=== PATIENT | male | born 1965 | race Caucasian/White ===

== ENCOUNTER 2016-06-25 22:39 | Inpatient (IN) | payer MEDICARE, OTHER ==
[~2016-06-25] VITALS: Ht 182.9 cm; Wt 98.2 kg
[~2016-06-25 22:39] MED LIST: ALPR.25 PO; AMLO5TAB2 PO; ATOR20TA15 PO; BUME1TAB PO; CALC667C; METO100T PO; OXYC1TAB36 PO; PANT20 PO; PROM25TA5 PO; SILD20TA11 PO; ZOFR4TAB3 SL
[2016-06-26] VITALS (9 sets, daily range): BP systolic 84–119; BP diastolic 52–70; PULSE 69–74; RESP 18–20; TEMP 97.4–99.2; O2SAT 96–100
[2016-06-26] MEDS ORDERED: PROMETHAZINE HCL 25 MG TAB PO PRN (02:45)
[2016-06-26] MEDS ORDERED: NALOXONE HCL 0.4 MG/ML AMP IV PRN (02:45)
[2016-06-26] MEDS ORDERED: HEPARIN SODIUM - SQ 10,000 UNITS/ML VIAL SQ SCH (02:45)
[2016-06-26] MEDS ORDERED: Vancomycin Consult Pharmacy 1 EA OTHER SCH (03:00)
[2016-06-26] MEDS: ACETAMINOPHEN 325 MG TAB PO PRN (05:06)
[2016-06-26] MEDS ORDERED: VANCOMYCIN 1,500 MG/NS 500 ML IV ONE ×2 (06:00)
[2016-06-26 06:12] LABS: MRSA PCR NEGATIVE (NEGATIVE); STAPH AUREUS PCR NEGATIVE (NEGATIVE)
--- NOTE | 2016-06-26 09:56 | RADRPT ---
EXAM DATE/TIME: 06/26/2016 08:02 [place] COMPARISON: No previous studies available for comparison. INDICATIONS : Syncope. MEDICAL HISTORY : Myocardial infarction. Hypercholesterolemia. Chronic obstructive pulmonary disease. CVA. CHF. Cardiom yopathy. A-fib. Hypertension. Pneumonia. Pancreatitis. Inguinal hernia. Renal failure. Hepatitis B. A rthritis. SURGICAL HISTORY : Tonsillectomy. AV shunt. Cardiac cath. Dialysis. Blood transfusion. ENCOUNTER: Initial ACUITY: 1 day PAIN SCORE: 1/10 LOCATION: Bilateral neck PEAK SYSTOLIC VELOCITIES (cm/sec): ICA/CCA RATIO: Right: 0.9 Left: 0.9 ICA: Right: 97 Left: 82 CCA: Right: 110 Left: 96 ECA: Right: 128 Left: 73 VERTEBRAL: Right: 45 antegrade Left: 43 antegrade Elevated flow velocities and ICA/CCA ratios have been found to correlate with increased degrees of vessel stenosis, calculated as percentage of diameter relative to a normal segment of distal ICA/CCA FINDINGS: RIGHT CAROTID: No significant stenosis is visualized. The waveforms are within normal limits. LEFT CAROTID: No significant stenosis is visualized. The waveforms are within normal limits. VERTEBRAL ARTERIES: Antegrade flow is seen in both vertebral arteries. MISCELLANEOUS: None. CONCLUSION: Mild calcified plaque right carotid bulb. No evidence of hemodynamically significant carotid stenosis . Huseyin Wood MD on June 26, 2016 at 9:54 Board Certified Radiologist. This report was verified electronically.
[2016-06-26] MEDS: SODIUM CHLORIDE 0.9% FLUSH 10 ML FLUSH IV FLUSH SCH ×2 (10:03→22:17)
[2016-06-26] MEDS: PANTOPRAZOLE SOD 20 MG DELAYED RELEASE TAB PO SCH ×2 (10:03→22:17)
--- NOTE | 2016-06-26 18:36 | EKG ---
Date Performed: 06/26/2016 Time Performed: 08:47:03 PTAGE: 51 years EKG: Sinus rhythm WITH FIRST DEGREE AV BLOCK INCOMPLETE RIGHT BUNDLE BRANCH BLOCK LEFT ANTERIOR FASCICULAR BLOCK ABNOR MAL ECG NO PREVIOUS TRACING DOCTOR: Ashley Sawyer Interpretating Date/Time 06/26/2016 18:35:03
[2016-06-26] MEDS: METOPROLOL TARTRATE 25 MG TAB PO SCH (21:00)
[2016-06-26] MEDS ORDERED: SILDENAFIL CITRATE 20 MG TAB PO SCH (21:00)
[2016-06-26] MEDS: ATORVASTATIN 20 MG TAB PO SCH (22:17)
[2016-06-26 22:52] LABS: BLOOD, URINE SMALL (NEG); COMMENT (UR) CULTURE INDICATED; CULTURE IF INDICATED CULTURE INDICATED; GLUCOSE,URINE NEG (NEG); HYALINE CAST, URINE 1 /lpf (RARE); KETONE, URINE NEG (NEG); MUCUS URINE FEW /lpf (OCC); NITRITE,URINE NEG (NEG); PH, URINE 5.5 (5.0-8.5); SQUAMOUS EPITHELIAL CELL URINE 2 /hpf (0-5); URINE COLOR YELLOW (YELLW/STRAW)
--- NOTE | 2016-06-26 23:20 | HHI.HP ---
HPI Service [facility] Primary Care Physician Jimbo Marie MD Admission Diagnosis Diagnoses: Travel History International Travel<30 Days: No Contact w/Intl Traveler <30 Da: No History of Present Illness 51-year-old male with history of end-stage renal disease on hemodialysis Monday , , Monday, fistula revision in January, as well as recent fistulogram on Monday, diabetes diet controlled, hypertension, CHF, pulmonary hypertension, who presents with lightheadedness, hypotension following dialysis on 06/24. He reports that his left arm was burning during dialysis, that he experienced lightheadedness. Upon arriving home, found blood pressure to be in the 70s systolic, with normal heart rate. He says he feels as if he was going to pass out. Denies any unilateral weakness. He does report having some chest pressure at the time, however denies any currently. He reports a several month history of intermittent sharp abdominal pain, does report issues with constipation over the past couple months. Review of Systems performed and negative except for HPI and past medical history. Past Family Social History Past Medical History Atrial fibrillation with history of ablation End-stage renal disease on hemodialysis Monday to Monday CHF Pulmonary hypertension Anxiety Hyperlipidemia Systemic hypertension Common immune deficiency syndrome GERD Chronic lower back pain Past Surgical History Left fistula revision January 2016. Cardiac catheterization History of pericardial window Reported Medications Reported Meds & Active Scripts Active Reported Zofran Odt (Ondansetron Odt) 4 Mg Tab 4 Mg SL Q6HR PRN Phenergan (Promethazine HCl) 25 Mg Tab 25 Mg PO Q6H PRN Oxycodone-Acetaminophen 10-325 mg Tab 1 Tab PO Q4H PRN Xanax (Alprazolam) 0.25 Mg Tab 0.25 Mg PO DIRECTED PRN Calcium Acetate (Calcium Acetate (Phosphate Bin) 667 Mg Cap Bumetanide 1 Mg Tab 1 Mg PO DAILY Protonix (Pantoprazole Sodium) 20 Mg Tab 20 Mg PO BID Atorvastatin (Atorvastatin Calcium) 20 Mg Tab 20 Mg PO HS Amlodipine (Amlodipine Besylate) 5 Mg Tab 5 Mg PO DAILY Metoprolol Tartrate 100 Mg Tab 100 Mg PO BID Sildenafil 20 Mg Tab 40 Mg PO BID Allergies: Coded Allergies: Albuterol (Verified Allergy, Severe, 06/25/16) violent shaking Meclizine (Verified Allergy, Severe, 06/25/16) swelling Penicillin (Verified Allergy, Severe, Rash, 06/25/16) Uncoded Allergies: plastic tape (Allergy, Severe, 06/25/16) breaks out Family History Patient was adopted Social History Nonsmoker. Nondrinker. Denies illicit drug use. Physical Exam Vital Signs Vital Signs Date Time Temp Pulse Resp B/P Pulse Ox O2 Delivery O2 Flow Rate FiO2 06/26/16 20:38 99.2 74 18 114/69 96 105/63 119/67 06/26/16 19:20 Room Air 06/26/16 16:00 98.3 70 18 109/70 98 06/26/16 14:50 97/57 06/26/16 13:00 90/60 06/26/16 12:00 97.4 71 18 88/56 99 06/26/16 10:31 98/53 06/26/16 08:51 99 21 06/26/16 08:00 84/52 06/26/16 08:00 97.4 69 18 87/54 97 06/26/16 08:00 86/54 06/26/16 02:10 97.6 72 20 101/60 100 06/25/16 23:41 Room Air Physical Exam GENERAL: This is a well-nourished, well-developed patient,who appears tired. He is oriented 3. SKIN: No rashes, ecchymoses or lesions. Cool and dry. HEAD: Atraumatic. Normocephalic. No temporal or scalp tenderness. EYES: Pupils equal round and reactive. Extraocular motions intact. No scleral icterus. No injection or drainage. ENT: Nose without bleeding, purulent drainage or septal hematoma. Throat without erythema, tonsillar hypertrophy or exudate. Uvula midline. Airway patent. NECK: Trachea midline. No JVD or lymphadenopathy. Supple, nontender, no meningeal signs. CARDIOVASCULAR: Regular rate and rhythm without murmurs, gallops, or rubs. RESPIRATORY: Clear to auscultation. Breath sounds equal bilaterally. No wheezes , rales, or rhonchi. GASTROINTESTINAL: Abdomen soft, non-tender, nondistended. No hepato-splenomegaly , or palpable masses. No guarding. MUSCULOSKELETAL: Extremities without clubbing, cyanosis, or edema. No joint tenderness, effusion, or edema noted. No calf tenderness. Negative Homans sign bilaterally. left upper extremity fistula with positive thrill. Surrounding ecchymosis, however mild. No surrounding erythema NEUROLOGICAL: Awake and alert. Cranial nerves II through XII intact. Motor and sensory grossly within normal limits. Five out of 5 muscle strength in all muscle groups. Normal speech. Laboratory Laboratory Tests Test 06/26/16 06/26/16 06/26/16 06/26/16 04:00 04:40 11:40 22:40 Nasal Screen MRSA (PCR) NEGATIVE Staphylococcus aureus NEGATIVE (PCR)(LAB) Troponin I 0.04 0.04 Creatinine 8.69 Estimat Glomerular Filtration 6 Rate Urine Color YELLOW Urine Turbidity HAZY Urine pH 5.5 Urine Specific [place] 1.023 Urine Protein 100 Urine Glucose (UA) NEG Urine Ketones NEG Urine Occult Blood SMALL Urine Nitrite NEG Urine Bilirubin NEG Urine Urobilinogen LESS THAN 2.0 Urine Leukocyte Esterase LARGE Urine RBC 5 Urine WBC 14 Urine Squamous Epithelial 2 Cells Urine Hyaline Casts 1 Urine Mucus FEW Urine Yeast (Budding) FEW Microscopic Urinalysis Comment CULTURE INDICATED Date/Time Procedure Status Source Growth 06/26/16 22:40 Urine Culture Received Urine Catheterized Urine Pending Result Diagram: 06/26/16 1140 Imaging Last Impressions Carotid Artery Ultrasound 06/26/16 0000 Signed Impressions: Service Date/Time: Sunday, June 26, 2016 08:02 - CONCLUSION: Mild calcified plaque right carotid bulb. No evidence of hemodynamically significant carotid stenosis. Huseyin Wood MD Assessment and Plan Assessment and Plan //Presyncope on admission. Following dialysis session. Likely secondary to low blood pressure at the time. Improved currently. Ultrasound carotids negative for significant stenosis. -Echocardiogram pending //Possible sepsis on admission.Banded neutrophils on admission. Hypotension on admission, and patient was on beta melvin. -Blood cultures(see other profile), and urine cultures pending. -Continue antibiotics. Follow up blood cultures. //End-stage renal disease on dialysis Monday to Patient refuses renal diet. Nephrology to follow for hemodialysis. Has right tunneled HD catheter, as well as questionable left upper extremity fistula. //constipation -Laxatives as necessary. Monitor. //left arm fistula -Patient believes this is not working appropriately. Will request records from recent fistulogram. //afib //History of CHF //History of suspected pulmonary arterial hypertension. -Continue beta melvin lower dose due to hypertension. Hold blood pressure medications. Continue sildenafil. Patient is not on anticoagulation. //depression no si. //History of anxiety Hold anxiolytics in setting of hypertension on admission. Patient declines medical treatment, but does believe that he is clinically depressed. Would like to follow up with psychiatrist or counselor as outpatient //GERD. Chronic. Continue PPI //DM - past diagnosis of diabetes, however says that this is resolved. Patient refuses DM diet, ssi Physician Certification 2 Midnight Certification Type: Admission for Inpatient Services Order for Inpatient Services The services are ordered in accordance with Medicare regulations or non- Medicare payer requirements, as applicable. In the case of services not specified as inpatient-only, they are appropriately provided as inpatient services in accordance with the 2-midnight benchmark. Estimated LOS (days): 2 days is the estimated time the patient will need to remain in the hospital, assuming treatment plan goals are met and no additional complications. Post-Hospital Plan: Not yet determined Yazan Bolaños MD Jun 26, 2016 23:20
[2016-06-27] VITALS (7 sets, daily range): BP systolic 100–121; BP diastolic 55–73; PULSE 70–76; RESP 16–18; TEMP 97–98.7; O2SAT 95–100
[2016-06-27] MEDS: ACETAMINOPHEN 325 MG TAB PO PRN (05:24)
[2016-06-27 06:44] LABS: BASOPHIL % 0.5 % (0.0-2.0); EOSINOPHIL # 0.2 TH/MM3 (0-0.4); EOSINOPHIL % 4.1 % (0.0-4.0); HEMATOCRIT 29.8 % (39.0-51.0); LYMPH % 13.6 % (9.0-44.0); LYMPHOCYTE # 0.8 TH/MM3 (1.0-4.8); MEAN CELL VOLUME 85.7 FL (80.0-100.0); MEAN CORPUSCULAR HEMOGLOBIN 28.8 PG (27.0-34.0); MEAN CORPUSCULAR HGB CONC 33.6 % (32.0-36.0); MONO % 9.5 % (0.0-8.0); NEUT % 72.3 % (16.0-70.0); PLATELET COUNT 73 TH/MM3 (150-450); RED BLOOD COUNT 3.48 MIL/MM3 (4.50-5.90); RED CELL DISTRIBUTION WIDTH 16.4 % (11.6-17.2); WHITE BLOOD COUNT 5.6 TH/MM3 (4.0-11.0)
[2016-06-27 06:54] LABS: HEMO FLAGS AUTO DIFF
[2016-06-27 07:01] LABS: POTASSIUM 4.8 MEQ/L (3.5-5.1)
[2016-06-27] MEDS ORDERED: POLYETHYLENE GLYCOL 17 GM PKG PO ONE (08:00)
[2016-06-27] MEDS ORDERED: DOCUSATE SODIUM 50 MG/SENNA 8.6 MG TAB PO ONE (08:00)
[2016-06-27 08:06] LABS: OVALOCYTES 1+ (NORMAL); SCAN/DIFF AUTO DIFF CONFIRMED; TEARDROP RBCS 1+ (NORMAL)
[2016-06-27] MEDS: SODIUM CHLORIDE 0.9% FLUSH 10 ML FLUSH IV FLUSH SCH ×2 (08:45→21:00)
[2016-06-27] MEDS: METOPROLOL TARTRATE 25 MG TAB PO SCH ×2 (08:45→21:00)
[2016-06-27] MEDS: PANTOPRAZOLE SOD 20 MG DELAYED RELEASE TAB PO SCH ×2 (08:45→21:35)
[2016-06-27] MEDS ORDERED: SILDENAFIL CITRATE 20 MG PO SCH (09:00)
[2016-06-27] MEDS ORDERED: SODIUM CHLOR 0.9% 1000 ML INJ 1,000 ML IV PRN ×3 (09:10)
[2016-06-27] MEDS ORDERED: SODIUM CHLORIDE 0.9% FLUSH 10 ML FLUSH IV FLUSH PRN (09:15)
[2016-06-27] MEDS ORDERED: cloNIDine HCL 0.1 MG TAB PO PRN (09:15)
[2016-06-27] MEDS ORDERED: ACETAMINOPHEN 325 MG TAB PO PRN ×2 (09:15→16:00)
[2016-06-27] MEDS ORDERED: HEPARIN SODIUM - IV 10,000 UNITS/10 ML VIAL IVF PRN (09:15)
[2016-06-27] MEDS ORDERED: GELATIN 12 MM/7 MM FOAM TOP PRN (09:15)
[2016-06-27] MEDS ORDERED: NITROGLYCERIN 0.4 MG SL 25 TABS/BTL SL PRN (09:15)
[2016-06-27] MEDS ORDERED: ALBUMIN HUMAN 25% 25 GM/100 ML BAGP IV PRN (09:15)
[2016-06-27] MEDS ORDERED: MANNITOL 12.5 GM/50 ML VIAL IV PRN (09:15)
--- NOTE | 2016-06-27 12:03 | PD.CONS ---
HPI Service Nephrology Consult Requested By Reason for Consult ESRD on HD Primary Care Physician Jimbo Marie MD History of Present Illness This is a 51 y/o male who lives in [place]. He dialyzes TTS. Was admitted for multiple complaints including dizziness and hypotension during dialysis treatments, has had these complaints for several weeks. He has not seen his cash applications representative to discuss his concerns. Other PMH of A fib, HTN, CAD, and CHF. He had a fistulogram on last week, had AVF cannulated Monday but now reports pain and is refusing to let it be used for dialysis during this admission. There is a good thrill and bruit in his fistula. He also has positive blood cultures on admission with gram pos cocci in chains, has Permcath for HD. We were consulted for renal management, and is a full code. ( Riya Arias) Review of Systems Constitutional: COMPLAINS OF: Fatigue, DENIES: Fever Musculoskeletal: COMPLAINS OF: Muscle aches (Riya Arias) Past Family Social History Allergies: Coded Allergies: Albuterol (Verified Allergy, Severe, 06/25/16) violent shaking Meclizine (Verified Allergy, Severe, 06/25/16) swelling Penicillin (Verified Allergy, Severe, Rash, 06/25/16) Uncoded Allergies: plastic tape (Allergy, Severe, 06/25/16) breaks out Past Medical History Atrial fibrillation with history of ablation End-stage renal disease on hemodialysis Monday to Monday CHF Pulmonary hypertension Anxiety Hyperlipidemia Systemic hypertension Common immune deficiency syndrome GERD Chronic lower back pain Past Surgical History Left fistula revision January 2016. fistulogram recently left AVF permcath Cardiac catheterization History of pericardial window Reported Medications Zofran Odt (Ondansetron Odt) 4 Mg Tab 4 Mg SL Q6HR PRN Phenergan (Promethazine HCl) 25 Mg Tab 25 Mg PO Q6H PRN Oxycodone-Acetaminophen 10-325 mg Tab 1 Tab PO Q4H PRN Xanax (Alprazolam) 0.25 Mg Tab 0.25 Mg PO DIRECTED PRN Calcium Acetate (Calcium Acetate (Phosphate Bin) 667 Mg Cap Bumetanide 1 Mg Tab 1 Mg PO DAILY Protonix (Pantoprazole Sodium) 20 Mg Tab 20 Mg PO BID Atorvastatin (Atorvastatin Calcium) 20 Mg Tab 20 Mg PO HS Amlodipine (Amlodipine Besylate) 5 Mg Tab 5 Mg PO DAILY Metoprolol Tartrate 100 Mg Tab 100 Mg PO BID Sildenafil 20 Mg Tab 40 Mg PO BID Active Ordered Medications Current Medications Medications (Trade) Dose Ordered Sig/Corinne Route Start Time Stop Time Status Last Admin (NS Flush) 2 ml UNSCH PRN IV FLUSH 06/26/16 02:45 (NS Flush) 2 ml BID IV FLUSH 06/26/16 09:00 06/27/16 08:45 (Tylenol) 650 mg Q4H PRN PO 06/26/16 02:45 06/27/16 05:24 (Zofran Inj) 4 mg Q6H PRN IVP 06/26/16 02:45 (Narcan Inj) 0.4 mg UNSCH PRN IV 06/26/16 02:45 (Lipitor) 20 mg HS PO 06/26/16 21:00 06/26/16 22:17 (Protonix) 20 mg BID PO 06/26/16 09:00 06/27/16 08:45 (Phenergan) 25 mg Q6H PRN PO 06/26/16 02:45 (Lopressor) 25 mg Q12HR PO 06/26/16 21:00 06/27/16 08:45 Patient Own Medication PT OWN MED:SILDENAFIL CITRATE 20... BID PO 06/27/16 09:00 Hold (NS 1000 ml Inj) 1,000 ml @ 0 mls/hr Q0M PRN IV 06/27/16 09:10 Heparin Sodium (Porcine) 8000 units 8,000 units UNSCH PRN IVF 06/27/16 09:15 Sodium Chloride 1,000 ml @ 200 mls/hr Q5H PRN IV 06/27/16 09:10 (NS 1000 ml Inj) 1,000 ml @ 0 mls/hr Q0M PRN IV 06/27/16 09:10 (Mannitol Inj) 12.5 gm UNSCH PRN IV 06/27/16 09:15 (Albumin 25% Inj) 25 gm UNSCH PRN IV 06/27/16 09:15 (NS Flush) 5 ml UNSCH PRN IV FLUSH 06/27/16 09:15 (Heparin Inj) UNSCH PRN .XX 06/27/16 09:15 (Gentamicin (Dialysis) Inj) 20 mg UNSCH PRN IV 06/27/16 09:15 (Zofran Inj) 4 mg UNSCH PRN IV 06/27/16 09:15 (Tylenol) 650 mg UNSCH PRN PO 06/27/16 09:15 (Benadryl) 25 mg UNSCH PRN PO 06/27/16 09:15 (Nitrostat Sl) 0.4 mg UNSCH PRN SL 06/27/16 09:15 (Catapres) 0.1 mg UNSCH PRN PO 06/27/16 09:15 (Epogen Inj) 10,000 units UNSCH PRN IV 06/27/16 09:15 (Gelfoam 12 Mm/7 Mm Top) 1 foam UNSCH PRN TOP 06/27/16 09:15 Family History no hx of renal disorders Social History single, lives alone in [place] 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 (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 Arias) Physical Exam Vital Signs Vital Signs Date Time Temp Pulse Resp B/P Pulse Ox O2 Delivery O2 Flow Rate FiO2 06/27/16 11:52 98.2 75 16 107/66 96 06/27/16 08:54 76 06/27/16 08:00 97.7 75 16 113/65 99 06/27/16 04:28 98.5 73 18 103/55 97 06/27/16 00:29 98.7 71 17 106/58 95 06/26/16 20:38 99.2 74 18 114/69 96 105/63 119/67 06/26/16 19:20 Room Air 06/26/16 16:00 98.3 70 18 109/70 98 06/26/16 14:50 97/57 06/26/16 13:00 90/60 06/26/16 12:00 97.4 71 18 88/56 99 Physical Exam GENERAL: This is a well-nourished, well-developed patient,who appears frustrated , He is oriented 3, alert, no neuro deficit SKIN: No rashes, ecchymoses or lesions. Cool and dry. HEAD: Atraumatic. Normocephalic. No temporal or scalp tenderness. EYES: Pupils equal round and reactive. Extraocular motions intact. No scleral icterus. No injection or drainage. ENT: Nose without bleeding, purulent drainage or septal hematoma. Throat without erythema, tonsillar hypertrophy or exudate. Uvula midline. Airway patent. NECK: Trachea midline. No JVD or lymphadenopathy. Supple, nontender, no meningeal signs. CARDIOVASCULAR: Regular rate and rhythm without murmurs, gallops, or rubs. rate controlled RESPIRATORY: Clear to auscultation. Breath sounds equal bilaterally. No wheezes , rales, or rhonchi. GASTROINTESTINAL: Abdomen soft, non-tender, nondistended. Ext: left arm with bruising, + thrill and bruit CV: permcath right chest NEUROLOGICAL: Awake and alert. Cranial nerves II through XII grossly intact. Motor and sensory grossly within normal limits. Five out of 5 muscle strength in all muscle groups. Normal speech. Laboratory Laboratory Tests Test 06/26/16 06/27/16 22:40 05:58 Urine Color YELLOW Urine Turbidity HAZY Urine pH 5.5 Urine Specific [place] 1.023 Urine Protein 100 Urine Glucose (UA) NEG Urine Ketones NEG Urine Occult Blood SMALL Urine Nitrite NEG Urine Bilirubin NEG Urine Urobilinogen LESS THAN 2.0 Urine Leukocyte Esterase LARGE Urine RBC 5 Urine WBC 14 Urine Squamous Epithelial 2 Cells Urine Hyaline Casts 1 Urine Mucus FEW Urine Yeast (Budding) FEW Microscopic Urinalysis Comment CULTURE INDICATED White Blood Count 5.6 Red Blood Count 3.48 Hemoglobin 10.0 Hematocrit 29.8 Mean Corpuscular Volume 85.7 Mean Corpuscular Hemoglobin 28.8 Mean Corpuscular Hemoglobin 33.6 Concent Red Cell Distribution Width 16.4 Platelet Count 73 Mean Platelet Volume 8.5 Neutrophils (%) (Auto) 72.3 Lymphocytes (%) (Auto) 13.6 Monocytes (%) (Auto) 9.5 Eosinophils (%) (Auto) 4.1 Basophils (%) (Auto) 0.5 Neutrophils # (Auto) 4.0 Lymphocytes # (Auto) 0.8 Monocytes # (Auto) 0.5 Eosinophils # (Auto) 0.2 Basophils # (Auto) 0.0 CBC Comment AUTO DIFF Differential Comment AUTO DIFF CONFIRMED Tear Drop Cells 1+ Ovalocytes 1+ Sodium Level 140 Potassium Level 4.8 Chloride Level 100 Carbon Dioxide Level 28.0 Anion Gap 12 Blood Urea Nitrogen 58 Creatinine 10.46 Estimat Glomerular Filtration 5 Rate Random Glucose 111 Calcium Level 7.6 Thyroid Stimulating Hormone 18.400 3rd Gen Random Vancomycin Level 13.6 Date/Time Procedure Status Source Growth 06/26/16 22:40 Urine Culture Received Urine Catheterized Urine Pending (Riya Arias) Result Diagram: 06/27/16 0558 06/27/16 0558 Imaging Last 72 hours Impressions Carotid Artery Ultrasound 06/26/16 0000 Signed Impressions: Service Date/Time: Sunday, June 26, 2016 08:02 - CONCLUSION: Mild calcified plaque right carotid bulb. No evidence of hemodynamically significant carotid stenosis. Huseyin Wood MD (Riya Arias) Assessment and Plan Problem List: (1) ESRD (end stage renal disease) Plan: continue HD TTS, due tomorrow he does not require additional treatment today avoid IVF continue home medications has AVF that he "will not let us use", to have vascath placed for treatment tomorrow intermittent renal panel renal diet with no protein restriction (2) Sepsis Plan: consult IR to remove permcath, place vascath he did have a procedure o fistula last week, records have been requested to see if he has any implanted devices on vancomycin,. monitor drug levels hold antihypertensives until blood pressure improves (3) Metabolic bone disease Plan: on phoslo, check phosphorus level in am (4) Anemia Plan: epogen with dialysis (Riya Arias) Assessment and Plan patient was seen and examined. Long discussion with him. Later discussed with hospitalist and ID. Because of positive blood culture, remove PermCath. Patient does not want us to use AVF at this time. If outpatient antibiotics are arranged, he can be discharged from renal standpoint. (Noah Fair MD) Riya Arias June 27, 2016 12:03 Noah Fair MD June 28, 2016 11:05
[2016-06-27] MEDS: ONDANSETRON HCL 4 MG/2 ML VIAL IVP PRN (15:12)
[2016-06-27] MEDS: ACETAMINOPHEN/HYDROcodone 325 MG/10 MG TAB PO PRN ×2 (15:58→21:35)
[2016-06-27] MEDS ORDERED: NALOXONE HCL 0.4 MG/ML AMP IV PRN (16:00)
[2016-06-27] MEDS ORDERED: ACETAMINOPHEN/HYDROcodone 325 MG/5 MG TAB PO PRN (16:00)
--- NOTE | 2016-06-27 19:38 | HHI.PR ---
Subjective Remarks patient seen this morning around 11:30 AM. He denies any chest pain or shortness of breath. He reports that left upper extremity fistula continues to be painful. Objective Vital Signs Date Time Temp Pulse Resp B/P Pulse Ox O2 Delivery O2 Flow Rate FiO2 06/27/16 16:58 18 06/27/16 15:50 97.5 74 16 121/73 100 100/68 110/69 06/27/16 11:52 98.2 75 16 107/66 96 06/27/16 08:54 76 06/27/16 08:00 97.7 75 16 113/65 99 06/27/16 04:28 98.5 73 18 103/55 97 06/27/16 00:29 98.7 71 17 106/58 95 06/26/16 20:38 99.2 74 18 114/69 96 105/63 119/67 I/O 06/26/16 06/26/16 06/26/16 06/27/16 06/27/16 06/27/16 07:00 15:00 23:00 07:00 15:00 23:00 Intake Total 120 ml 480 ml 240 ml 360 ml 480 ml Balance 120 ml 480 ml 240 ml 360 ml 480 ml Intake Oral 120 ml 480 ml 240 ml 360 ml 480 ml # Voids 0 0 0 0 0 # Bowel Movements 1 0 1 0 0 Result Diagram: 06/27/16 0558 06/27/16 0558 Objective Remarks GENERAL: patient sitting up in bed. Appears comfortable. Alert and oriented 3. SKIN: Warm and dry. HEAD: Normocephalic. EYES: No scleral icterus. No injection or drainage. NECK: Supple, trachea midline. No JVD. CARDIOVASCULAR: Regular rate and rhythm without murmurs, gallops, or rubs. RESPIRATORY: Breath sounds equal bilaterally. No accessory muscle use. GASTROINTESTINAL: Abdomen soft, non-tender, nondistended. MUSCULOSKELETAL: No cyanosis, or edema. left upper extremity fistula intact. No erythema. Some ecchymosis. BACK: Nontender without obvious deformity. No CVA tenderness. A/P Assessment and Plan //Presyncope on admission. Following dialysis session. Likely secondary to low blood pressure at the time. Improved currently. Ultrasound carotids negative for significant stenosis. -Echocardiogram pending //Possible sepsis on admission.Banded neutrophils on admission. Hypotension on admission, and patient was on beta melvin. -Blood cultures(see other profile), and urine cultures pending. -Continue antibiotics. Follow up blood cultures. //End-stage renal disease on dialysis Monday to Patient refuses renal diet. Nephrology to follow for hemodialysis. Has right tunneled HD catheter, as well as questionable left upper extremity fistula. //constipation -Laxatives as necessary. Monitor. //left arm fistula -Patient believes this is not working appropriately. Will request records from recent fistulogram. //afib //History of CHF //History of suspected pulmonary arterial hypertension. -Continue beta melvin lower dose due to hypertension. Hold blood pressure medications. Continue sildenafil. Patient is not on anticoagulation. //depression no si. //History of anxiety Hold anxiolytics in setting of hypertension on admission. Patient declines medical treatment, but does believe that he is clinically depressed. Would like to follow up with psychiatrist or counselor as outpatient //GERD. Chronic. Continue PPI //DM - past diagnosis of diabetes, however says that this is resolved. Patient refuses DM diet, ssi Discharge Planning continues IV antibiotics for gram-positive bacteremia Yazan Bolaños MD June 27, 2016 19:38
--- NOTE | 2016-06-27 20:11 | PD.ID.CON ---
History of Present Illness Service ID Consult Requested By Reason for Consult Evaluate and Management of severe sepsis on admission. 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 His PMHx is significant for ESRD on HD T,Anupama,Sat and Common variable immune deficiency syndrome for which he underwent an extensive workup. Patient reports his School Occupational Therapist is in [place]. He reports he underwent a fistula revision in Jan with complications including major hematoma involving left arm and left side of chest needing drainage. He is now anxious to use the left AV fistula due to complications twice in one year. He underwent fistulagram a day or two prior to admission. His PMHx is also significant for diabetes, hypertension, CHF, pulmonary hypertension, who presents with lightheadedness, hypotension following dialysis on 06/24. He reports that his left arm was burning during dialysis, that he experienced lightheadedness. Upon arriving home, found blood pressure to be in the 70s systolic, with normal heart rate. He felt light headed with no seizures or any limb weakness. At the time of my evaluation patient is on the 6th floor hemodynamically stable , sitting up in bed, conversing. ID consulted for evaluation and Mment of Severe Sepsis on admission in IC pt with Common Variable Immune deficiency disorder. Review of Systems ROS Limitations: Intubated Past Family Social History Allergies: Coded Allergies: Albuterol (Verified Allergy, Severe, 06/25/16) violent shaking Meclizine (Verified Allergy, Severe, 06/25/16) swelling Penicillin (Verified Allergy, Severe, Rash, 06/25/16) Uncoded Allergies: plastic tape (Allergy, Severe, 06/25/16) breaks out Past Medical History Atrial fibrillation with history of ablation End-stage renal disease on hemodialysis Monday to Monday CHF Pulmonary hypertension Anxiety Hyperlipidemia Systemic hypertension Common immune deficiency syndrome GERD Chronic lower back pain Past Surgical History Left fistula revision January 2016. Cardiac catheterization History of pericardial window Reported Medications Reported Meds & Active Scripts Active Reported Zofran Odt (Ondansetron Odt) 4 Mg Tab 4 Mg SL Q6HR PRN Phenergan (Promethazine HCl) 25 Mg Tab 25 Mg PO Q6H PRN Oxycodone-Acetaminophen 10-325 mg Tab 1 Tab PO Q4H PRN Xanax (Alprazolam) 0.25 Mg Tab 0.25 Mg PO DIRECTED PRN Calcium Acetate (Calcium Acetate (Phosphate Bin) 667 Mg Cap Bumetanide 1 Mg Tab 1 Mg PO DAILY Protonix (Pantoprazole Sodium) 20 Mg Tab 20 Mg PO BID Atorvastatin (Atorvastatin Calcium) 20 Mg Tab 20 Mg PO HS Amlodipine (Amlodipine Besylate) 5 Mg Tab 5 Mg PO DAILY Metoprolol Tartrate 100 Mg Tab 100 Mg PO BID Sildenafil 20 Mg Tab 40 Mg PO BID Active Ordered Medications Current Medications Medications (Trade) Dose Ordered Sig/Corinne Route Start Time Stop Time Status Last Admin (NS Flush) 2 ml UNSCH PRN IV FLUSH 06/26/16 02:45 (NS Flush) 2 ml BID IV FLUSH 06/26/16 09:00 06/27/16 08:45 (Tylenol) 650 mg Q4H PRN PO 06/26/16 02:45 06/27/16 05:24 (Zofran Inj) 4 mg Q6H PRN IVP 06/26/16 02:45 06/27/16 15:12 (Lipitor) 20 mg HS PO 06/26/16 21:00 06/26/16 22:17 (Protonix) 20 mg BID PO 06/26/16 09:00 06/27/16 08:45 (Phenergan) 25 mg Q6H PRN PO 06/26/16 02:45 (Lopressor) 25 mg Q12HR PO 06/26/16 21:00 06/27/16 08:45 Patient Own Medication PT OWN MED:SILDENAFIL CITRATE 20... BID PO 06/27/16 09:00 Hold (NS 1000 ml Inj) 1,000 ml @ 0 mls/hr Q0M PRN IV 06/27/16 09:10 Heparin Sodium (Porcine) 8000 units 8,000 units UNSCH PRN IVF 06/27/16 09:15 Sodium Chloride 1,000 ml @ 200 mls/hr Q5H PRN IV 06/27/16 09:10 (NS 1000 ml Inj) 1,000 ml @ 0 mls/hr Q0M PRN IV 06/27/16 09:10 (Mannitol Inj) 12.5 gm UNSCH PRN IV 06/27/16 09:15 (Albumin 25% Inj) 25 gm UNSCH PRN IV 06/27/16 09:15 (NS Flush) 5 ml UNSCH PRN IV FLUSH 06/27/16 09:15 (Heparin Inj) UNSCH PRN .XX 06/27/16 09:15 (Gentamicin (Dialysis) Inj) 20 mg UNSCH PRN IV 06/27/16 09:15 (Zofran Inj) 4 mg UNSCH PRN IV 06/27/16 09:15 (Tylenol) 650 mg UNSCH PRN PO 06/27/16 09:15 (Benadryl) 25 mg UNSCH PRN PO 06/27/16 09:15 (Nitrostat Sl) 0.4 mg UNSCH PRN SL 06/27/16 09:15 (Catapres) 0.1 mg UNSCH PRN PO 06/27/16 09:15 (Epogen Inj) 10,000 units UNSCH PRN IV 06/27/16 09:15 (Gelfoam 12 Mm/7 Mm Top) 1 foam UNSCH PRN TOP 06/27/16 09:15 (Tylenol) 650 mg Q6H PRN PO 06/27/16 16:00 ([place] 5-325 Mg) 1 tab Q4H PRN PO 06/27/16 16:00 ([place] 10-325 Mg) 1 tab Q4H PRN PO 06/27/16 16:00 06/27/16 15:58 (Narcan Inj) 0.4 mg UNSCH PRN IV 06/27/16 16:00 (Heparin Inj) 5,000 units Q12HR SQ 06/27/16 21:00 Family History reviewed. Pt adopted. Social History Nonsmoker. Nondrinker. Denies illicit drug use. Physical Exam Vital Signs Vital Signs Date Time Temp Pulse Resp B/P Pulse Ox O2 Delivery O2 Flow Rate FiO2 06/27/16 16:58 18 06/27/16 15:50 97.5 74 16 121/73 100 100/68 110/69 06/27/16 11:52 98.2 75 16 107/66 96 06/27/16 08:54 76 06/27/16 08:00 97.7 75 16 113/65 99 06/27/16 04:28 98.5 73 18 103/55 97 06/27/16 00:29 98.7 71 17 106/58 95 06/26/16 20:38 99.2 74 18 114/69 96 105/63 119/67 Physical Exam GENERAL: This is a well-nourished, well-developed patient, in no apparent distress. SKIN: No rashes, ecchymoses or lesions. Cool and dry. HEAD: Atraumatic. Normocephalic. No temporal or scalp tenderness. EYES: Pupils equal round and reactive. Extraocular motions intact. No scleral icterus. No injection or drainage. ENT: Nose without bleeding, purulent drainage or septal hematoma. Throat without erythema, tonsillar hypertrophy or exudate. Uvula midline. Airway patent. NECK: Trachea midline. Supple, nontender, no meningeal signs. CARDIOVASCULAR: RRR Left arm AV fistula: with warmth, bruit and thrill +. Left chest wall with old scars. Rt HD cath with no e.o infection. RESPIRATORY: Clear to auscultation. Breath sounds equal bilaterally. GASTROINTESTINAL: Abdomen soft, non-tender, nondistended. MUSCULOSKELETAL: Extremities without clubbing, cyanosis, or edema. NEUROLOGICAL: Awake and alert. Grossly non focal Psych: cooperative IV line sites with no e/o infection. Laboratory Laboratory Tests Test 06/26/16 06/27/16 22:40 05:58 Urine Color YELLOW Urine Turbidity HAZY Urine pH 5.5 Urine Specific [place] 1.023 Urine Protein 100 Urine Glucose (UA) NEG Urine Ketones NEG Urine Occult Blood SMALL Urine Nitrite NEG Urine Bilirubin NEG Urine Urobilinogen LESS THAN 2.0 Urine Leukocyte Esterase LARGE Urine RBC 5 Urine WBC 14 Urine Squamous Epithelial 2 Cells Urine Hyaline Casts 1 Urine Mucus FEW Urine Yeast (Budding) FEW Microscopic Urinalysis Comment CULTURE INDICATED White Blood Count 5.6 Red Blood Count 3.48 Hemoglobin 10.0 Hematocrit 29.8 Mean Corpuscular Volume 85.7 Mean Corpuscular Hemoglobin 28.8 Mean Corpuscular Hemoglobin 33.6 Concent Red Cell Distribution Width 16.4 Platelet Count 73 Mean Platelet Volume 8.5 Neutrophils (%) (Auto) 72.3 Lymphocytes (%) (Auto) 13.6 Monocytes (%) (Auto) 9.5 Eosinophils (%) (Auto) 4.1 Basophils (%) (Auto) 0.5 Neutrophils # (Auto) 4.0 Lymphocytes # (Auto) 0.8 Monocytes # (Auto) 0.5 Eosinophils # (Auto) 0.2 Basophils # (Auto) 0.0 CBC Comment AUTO DIFF Differential Comment AUTO DIFF CONFIRMED Tear Drop Cells 1+ Ovalocytes 1+ Sodium Level 140 Potassium Level 4.8 Chloride Level 100 Carbon Dioxide Level 28.0 Anion Gap 12 Blood Urea Nitrogen 58 Creatinine 10.46 Estimat Glomerular Filtration 5 Rate Random Glucose 111 Calcium Level 7.6 Thyroid Stimulating Hormone 18.400 3rd Gen Random Vancomycin Level 13.6 Date/Time Procedure Status Source Growth 06/26/16 22:40 Urine Culture - Preliminary Resulted Urine Catheterized Urine RESULTS PENDING Result Diagram: 06/27/16 0558 06/27/16 0558 Imaging Last Impressions Carotid Artery Ultrasound 06/26/16 0000 Signed Impressions: Service Date/Time: Sunday, June 26, 2016 08:02 - CONCLUSION: Mild calcified plaque right carotid bulb. No evidence of hemodynamically significant carotid stenosis. Huseyin Wood MD Assessment and Plan Assessment and Plan Sepsis present on admission (h/o night sweats, low grade fevers, hypotension on admission) Possible AV fistula manipulation related infection Possible Permacath infection. Staph Epidermidis bacteremia likely causative and not contaminant given recent history of AV fistula manipulation just prior to admission. Hypotension: sepsis, HD during infection period. ESRD on HD (has AV fistula but due to hematoma does not want to use it). Current access for regular HD is the right Permacath. Penicillin allergy: rash. Recs: Blood cultures repeat Vanco 1 gm in HD. Flaco Nephkassandra Khanna: Permacath removal. Placement of vascath till infection treatment complete. Doppler left UE r/o abscess. Follow cultures Follow clinically. Case Management note: will need Vanco in HD on discharge. Please find out name of his HD center. His School Occupational Therapist is in [place]. Duration to be determined not ready for DC yet. Viola Nguyen MD June 27, 2016 20:11 Current access for regular HD is the right Permacath. Penicillin allergy: rash. Recs: Blood cultures repeat Vanco 1 gm in HD. Flaco Nephkassandra Khanna: Permacath removal. Placement of vascath till infection treatment complete. Doppler left UE r/o abscess. Follow cultures Follow clinically. Case Management note: will need Vanco in HD on discharge. Please find out name of his HD center. His School Occupational Therapist is in [place]. Duration to be determined not ready for DC yet. Viola Nguyen MD June 27, 2016 20:11
[2016-06-27] MEDS: ATORVASTATIN 20 MG TAB PO SCH (21:35)
[2016-06-27] MEDS: HEPARIN SODIUM - SQ 10,000 UNITS/ML VIAL SQ SCH (21:36)
[2016-06-27 23:16] LABS: INDIRECT BILIRUBIN 0.3 MG/DL (0.0-0.8); TOTAL BILIRUBIN ADULT 0.4 MG/DL (0.2-1.0)
[2016-06-28] VITALS (7 sets, daily range): BP systolic 107–150; BP diastolic 61–84; PULSE 69–97; RESP 17–20; TEMP 96–97.6; O2SAT 95–100
[2016-06-28] MEDS: ONDANSETRON HCL 4 MG/2 ML VIAL IVP PRN ×2 (02:41→15:19)
[2016-06-28] MEDS: METOPROLOL TARTRATE 25 MG TAB PO SCH ×2 (08:00→21:18)
[2016-06-28] MEDS: HEPARIN SODIUM - SQ 10,000 UNITS/ML VIAL SQ SCH ×2 (08:00→21:19)
[2016-06-28] MEDS: PANTOPRAZOLE SOD 20 MG DELAYED RELEASE TAB PO SCH ×2 (08:00→21:19)
[2016-06-28] MEDS: SODIUM CHLORIDE 0.9% FLUSH 10 ML FLUSH IV FLUSH SCH ×2 (08:01→21:00)
[2016-06-28] MEDS ORDERED: fentaNYL CITRATE 250 MCG/5 ML AMP ONE (08:17)
[2016-06-28] MEDS ORDERED: MIDAZOLAM HCL 5 MG/5 ML VIAL ONE (08:17)
[2016-06-28 08:25] LABS: AUTOMATED NEUTROPHIL # 4.5 TH/MM3 (1.8-7.7); BASOPHIL % 0.6 % (0.0-2.0); EOSINOPHIL # 0.2 TH/MM3 (0-0.4); EOSINOPHIL % 3.6 % (0.0-4.0); HEMATOCRIT 30.3 % (39.0-51.0); LYMPH % 14.1 % (9.0-44.0); LYMPHOCYTE # 0.9 TH/MM3 (1.0-4.8); MEAN CELL VOLUME 86.3 FL (80.0-100.0); MEAN CORPUSCULAR HEMOGLOBIN 28.4 PG (27.0-34.0); MEAN CORPUSCULAR HGB CONC 32.9 % (32.0-36.0); MONO % 8.3 % (0.0-8.0); NEUT % 73.4 % (16.0-70.0); PLATELET COUNT 73 TH/MM3 (150-450); RED BLOOD COUNT 3.51 MIL/MM3 (4.50-5.90); RED CELL DISTRIBUTION WIDTH 16.4 % (11.6-17.2); WHITE BLOOD COUNT 6.1 TH/MM3 (4.0-11.0)
[2016-06-28] MEDS ORDERED: LIDOCAINE 1%/EPINEPHrine 1:100,000 SOLN 20 ML VIAL ONE (08:32)
[2016-06-28 08:51] LABS: HEMO FLAGS AUTO DIFF
[2016-06-28 08:56] LABS: BICARBONATE 26.5 MEQ/L (21.0-32.0); POTASSIUM 5.1 MEQ/L (3.5-5.1)
[2016-06-28] MEDS ORDERED: HEPARIN SODIUM - IV 2,000 UNITS/2 ML VIAL IV FLUSH PRN (09:15)
[2016-06-28] MEDS ORDERED: SODIUM CHLORIDE 0.9% FLUSH 10 ML FLUSH IVF PRN (09:15)
--- NOTE | 2016-06-28 09:19 | PD.RAD ---
Post Procedure Progress Note Pre Procedure Diagnosis: (1) ESRD (end stage renal disease) (2) Sepsis Post Procedure Diagnosis: (1) ESRD (end stage renal disease) (2) Sepsis Procedure Date: June 28, 2016 Supervising Radiologist: Garfield Caraballo Proceduralist/Assist: Haritha Santiago, RT(R)(CV), Pat Connelly RT(R)() Anesthesia: Local, Analgesia, Conscious Sedation Plan of Activity Patient to Unit: ROPU Patient Condition: Good See PACS Report for procedural detail/treatment Central Venous Access Device Procedure 1 Right Subclavian Hemodialysis Catheter Tunneled Removal dual lumen Procedure 2 Right Internal Jugular Hemodialysis Catheter Non-Tunneled Placement dual lumen [place]: 14 Length (cm): 15 Findings: Catheter tip sent for culture Garfield Caraballo MD June 28, 2016 09:19
[2016-06-28 09:21] LABS: CALCIUM-PROTEIN CORRECTED 7.5 MG/DL (8.5-10.1)
[2016-06-28 09:26] LABS: OVALOCYTES 1+ (NORMAL); TEARDROP RBCS 1+ (NORMAL)
[2016-06-28 09:27] LABS: PLATELET ESTIMATE SMEAR LOW (NORMAL); PLATELET MORPHOLOGY NORMAL (NORMAL); SCAN/DIFF AUTO DIFF CONFIRMED
--- NOTE | 2016-06-28 10:56 | RADRPT ---
EXAM DATE/TIME: 06/28/2016 09:27 [facility] COMPARISON: No previous studies available for comparison. INDICATIONS : ESRD. Permcath infected. MEDICAL HISTORY : 1. ESRD 2. A fib 3. CHF 4. Pulmonary hypertension 5. Anxiety 6. GERD 7. Chronic lower back pain 8. Common immune deficiency SURGICAL HISTORY : 1. Left fistula 2. Revision 02/11 3. cardiac catherization ENCOUNTER: Initial ACUITY: 3 days PAIN SCORE: 4/10 LOCATION: low back FLUORO TIME: 0.5 minutes IMAGE SERIES: 1 SEDATION TIME: 30minutes ACCESS: Right internal jugular vein MEDICATION(S): 1.) 3 mg midazolam (Versed) IV 2.) 150 mcg fentanyl (Sublimaze) IV PROCEDURE : 1. PermaCath removal. The risks, benefits and alternatives to the procedure were explained and verbal and written consent w as obtained. The site was prepped in sterile fashion. Full sterile technique was used, including ca p, mask, sterile gloves and gown and a large sterile sheet. Hand hygiene and 2% chlorhexidine and/or betadine/alcohol prep was utilized per protocol for cutaneous antisepsis. The skin and subcutaneous tissues were infiltrated with local anesthetic solution. The tract was anesthetized with 1% Lidocaine using. The Permcath was dissected from the subcutaneous tissues and easily removed in one piece. Manual pressure was applied to the venotomy site until hem ostasis was obtained. Sterile dressing was applied. The patient tolerated the procedure well and there were no complications. CONCLUSION: Uncomplicated Permcath removal. Garfield Caraballo MD on June 28, 2016 at 10:54 Board Certified Radiologist. This report was verified electronically.
--- NOTE | 2016-06-28 12:04 | HHI.NPPN ---
Subjective Renal Failure: Chronic, End Stage Renal Disease Interval History Due today for dialysis. No acute concerns. (Riya Arias) Objective Data Data 06/27/16 06/28/16 19:00 07:00 Intake Total 480 ml 120 ml Output Total 250 ml Balance 480 ml -130 ml Intake Oral 480 ml 120 ml Output Urine Total 250 ml # Voids 0 0 # Bowel Movements 0 0 Vital Signs Date Time Temp Pulse Resp B/P Pulse Ox O2 Delivery O2 Flow Rate FiO2 06/28/16 09:55 73 18 127/68 98 06/28/16 09:40 75 18 143/71 95 06/28/16 09:25 97.6 97 18 150/72 100 06/28/16 03:50 96.9 71 17 123/73 97 06/28/16 00:20 97.2 69 18 109/66 98 107/61 111/62 06/27/16 20:00 97.0 70 18 108/64 96 06/27/16 16:58 18 06/27/16 15:50 97.5 74 16 121/73 100 100/68 110/69 (Riya Arias) -: 06/28/16 0648 06/28/16 0648 Microbiology 06/27/16 Aerobic Blood Culture - Preliminary, Resulted NO GROWTH IN 1 DAY 06/27/16 Anaerobic Blood Culture - Preliminary, Resulted NO GROWTH IN 1 DAY 06/27/16 Aerobic Blood Culture - Preliminary, Resulted NO GROWTH IN 1 DAY 06/27/16 Anaerobic Blood Culture - Preliminary, Resulted NO GROWTH IN 1 DAY 06/28/16 Wound Culture, Received Pending Imaging Last 72 hours Impressions Central Venous Line 06/28/16 0927 Signed Impressions: Service Date/Time: Tuesday, June 28, 2016 09:27 - CONCLUSION: Uncomplicated Permcath removal. Garfield Caraballo MD Carotid Artery Ultrasound 06/26/16 0000 Signed Impressions: Service Date/Time: Sunday, June 26, 2016 08:02 - CONCLUSION: Mild calcified plaque right carotid bulb. No evidence of hemodynamically significant carotid stenosis. Huseyin Wood MD Tubes & Lines: Vas-Cath (Riya Arias) Physical Exam General Appearance: Well Developed, Well Nourished, No Acute Distress (Riya Arias) Neck Neck Exam: Neck Supple (Riya Arias) Pulmonary Resp Exam: Clear Bilaterally, Breath Sounds Equal (Riya Arias) Cardiology CV Exam: Regular, Normal Sinus Rhythm (Riya Arias) Gastrointestinal/Abdomen GI Exam: Soft, Non-Tender, Bowel Sounds Present (Riya Arias) Musculoskeletal MS Exam: Joints Intact, Normal Tone (Riya Arias) Integumentary Skin Exam: Warm, Dry (Riya Arias) Extremeties Extremities Exam: No Edema, Pedal Pulses Palpable Extremeties Remarks left arm AVF , + thrill/bruit (Riya Arias) Neurologic Neuro Exam: Alert, Awake, Oriented, Speech Clear, Moving All Extremities ( Riya Arias) Psychiatric Psych Exam: Appropriate Responses (Riya Arias) Assessment/Plan Discussed Condition With: Patient Assessment Summary: Anemia of CKD, End Stage Renal Disease Problem List: (1) ESRD (end stage renal disease) Plan: continue HD TTS, he is due today s/p permcath removal and vascath placement has AVF that he "will not let us use", avoid IVF continue home medications intermittent renal panel renal diet with no protein restriction can be discharged once antibiotic therapy is arranged (2) Sepsis Plan: ID following had vascath placed on vancomycin,. monitor drug levels (3) Metabolic bone disease Plan: on phoslo, check phosphorus level in am (4) Anemia Plan: epogen with dialysis (Riya Arias) Plan Patient was seen and examined. Agree with above assessment and plan. (Noah Fair MD) Riya Arias June 28, 2016 12:04 Noah Fair MD June 28, 2016 20:16
[2016-06-28] MEDS: ACETAMINOPHEN/HYDROcodone 325 MG/10 MG TAB PO PRN (12:22)
[2016-06-28] MEDS ORDERED: TEMAZEPAM 15 MG CAP PO PRN (14:15)
[2016-06-28 14:18] LABS: FREE T4 0.68 NG/DL (0.76-1.46)
--- NOTE | 2016-06-28 14:21 | HHI.PR ---
Subjective Remarks Follow-up for possible bacteremia and near syncope. The patient states he had his dialysis catheter exchange today. He is due for dialysis this afternoon. He complains of blood draws and is requesting a PICC line. He states that he was previously on medicine for his thyroid, 25 g daily, but was taken off a few months ago. He also states he is on amiodarone daily. He states that he's been having problems sleeping, takes temazepam as needed. Objective Vitals Vital Signs Date Time Temp Pulse Resp B/P Pulse Ox O2 Delivery O2 Flow Rate FiO2 06/28/16 13:22 18 06/28/16 12:00 96.0 76 20 135/83 100 120/71 130/80 06/28/16 09:55 73 18 127/68 98 06/28/16 09:40 75 18 143/71 95 06/28/16 09:25 97.6 97 18 150/72 100 06/28/16 03:50 96.9 71 17 123/73 97 06/28/16 00:20 97.2 69 18 109/66 98 107/61 111/62 06/27/16 20:00 97.0 70 18 108/64 96 06/27/16 15:50 97.5 74 16 121/73 100 100/68 110/69 I/O 06/27/16 06/27/16 06/27/16 06/28/16 06/28/16 06/28/16 07:00 15:00 23:00 07:00 15:00 23:00 Intake Total 360 ml 480 ml 120 ml 0 ml Output Total 250 ml Balance 360 ml 480 ml 120 ml -250 ml Intake Oral 360 ml 480 ml 120 ml 0 ml Output Urine Total 250 ml # Voids 0 0 0 # Bowel Movements 0 0 0 0 Result Diagram: 06/28/16 0648 06/28/16 0648 Imaging Last Impressions Central Venous Line 06/28/16926 Signed Impressions: Service Date/Time: Tuesday, June 28, 2016 09:27 - CONCLUSION: Uncomplicated Permcath removal. Garfield Caraballo MD Carotid Artery Ultrasound 06/26/16 0000 Signed Impressions: Service Date/Time: Sunday, June 26, 2016 08:02 - CONCLUSION: Mild calcified plaque right carotid bulb. No evidence of hemodynamically significant carotid stenosis. Huseyin Wood MD Objective Remarks GENERAL: Well-developed well-nourished. In no acute distress. SKIN: Warm and dry. Vas-Cath in place on right upper chest. LUE AVF. HEENT: Normocephalic. Pupils equal and round. Mucous membranes pink and moist. CARDIOVASCULAR: Regular rate and rhythm. No murmur appreciated. RESPIRATORY: No accessory muscle use. Clear to auscultation. Breath sounds equal bilaterally. GASTROINTESTINAL: Abdomen soft, non-tender, nondistended. Bowel sounds x4. MUSCULOSKELETAL: No obvious deformities. No clubbing or cyanosis. No edema. NEUROLOGICAL: Awake and alert. No focal neurological deficits. Moves upper and lower extremities spontaneously. Normal speech. PSYCHIATRIC: Slightly depressed mood and affect; insight and judgment normal. A/P Assessment and Plan 51-year-old male with a past medical history of ESRD, diet-controlled DM, HTN, CHF, pulmonary HTN who presented for lightheadedness and hypotension following dialysis //Presyncope on admission. Following dialysis session. Likely secondary to low blood pressure at the time. Improved currently. Ultrasound carotids negative for significant stenosis. Non-orthostatic. -Echocardiogram pending //Possible sepsis on admission.Banded neutrophils on admission. Hypotension on admission, and patient was on beta melvin. //Bacteremia -Blood cultures(see other profile) growing staph epidermidis -ID consulted, discussed with Dr. Nguyen, follow up repeat blood cultures 5 days -Follow up repeat blood cultures as well as catheter tip culture -Continue antibiotics. //End-stage renal disease on dialysis Monday to Patient refuses renal diet. Nephrology to follow for hemodialysis. //left arm fistula -Patient believes this is not working appropriately. Will request records from recent fistulogram. Nephrology consulted. //afib //History of CHF //History of suspected pulmonary arterial hypertension. -Continue beta melvin lower dose due to hypotension. Hold blood pressure medications. Continue sildenafil. Patient is not on anticoagulation. -Resume amiodarone //depression, no si. //History of anxiety Hold anxiolytics in setting of hypertension on admission. Patient declines medical treatment, but does believe that he is clinically depressed. Would like to follow up with psychiatrist or counselor as outpatient -Treat thyroid as below -Temazepam for insomnia //GERD. Chronic. Continue PPI //DM - past diagnosis of diabetes, however says that this is resolved. Patient refuses DM diet, ssi //Hypothyroidism. TSH 18.4. Checking T3 and T4, pending. Resume previous dose of levothyroxine. Written by Jf Chen, acting as scribe for Dr. Bolaños on 06/28/16 at 14:20. This note was transcribed by scribe [Jf Chen]. I, Dr. Yazan Bolaños personally performed the history, physical exam, and medical decision making; and confirmed the accuracy of the information in the transcribed note. Authenticated by Dr. Yazan Bolaños on 06/29/16 at 09:07. Jf Chen June 28, 2016 14:21 Yazan Bolaños MD June 29, 2016 09:08
--- NOTE | 2016-06-28 15:10 | HHI.IDPN ---
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 His PMHx is significant for ESRD on HD T,Anupama,Sat and Common variable immune deficiency syndrome for which he underwent an extensive workup. 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 He reports he underwent a fistula revision in Jan with complications including major hematoma involving left arm and left side of chest needing drainage. He is now anxious to use the left AV fistula due to complications twice in one year. He underwent fistulagram a day or two prior to admission. His PMHx is also significant for diabetes, hypertension, CHF, pulmonary hypertension, who presents with lightheadedness, hypotension following dialysis on 06/24. He reports that his left arm was burning during dialysis, that he experienced lightheadedness. Upon arriving home, found blood pressure to be in the 70s systolic, with normal heart rate. He felt light headed with no seizures or any limb weakness. ID following for Sepsis, Staph Epiderm bacteremia. Antibiotics Vanco IV in HD Lines Line sites with no e.o infection. New Vascath placed. Past Medical History reviewed Allergies: Coded Allergies: Albuterol (Verified Allergy, Severe, 06/25/16) violent shaking Meclizine (Verified Allergy, Severe, 06/25/16) swelling Penicillin (Verified Allergy, Severe, Rash, 06/25/16) Uncoded Allergies: plastic tape (Allergy, Severe, 06/25/16) breaks out Objective . Vital Signs Date Time Temp Pulse Resp B/P Pulse Ox O2 Delivery O2 Flow Rate FiO2 06/28/16 13:22 18 06/28/16 12:00 96.0 76 20 135/83 100 120/71 130/80 06/28/16 09:55 73 18 127/68 98 06/28/16 09:40 75 18 143/71 95 06/28/16 09:25 97.6 97 18 150/72 100 06/28/16 03:50 96.9 71 17 123/73 97 06/28/16 00:20 97.2 69 18 109/66 98 107/61 111/62 06/27/16 20:00 97.0 70 18 108/64 96 06/27/16 15:50 97.5 74 16 121/73 100 100/68 110/69 06/27/16 06/27/16 06/28/16 15:00 23:00 07:00 Intake Total 480 ml 120 ml 0 ml Output Total 250 ml Balance 480 ml 120 ml -250 ml Intake Oral 480 ml 120 ml 0 ml Output Urine Total 250 ml # Voids 0 0 # Bowel Movements 0 0 0 . Laboratory Tests Test 06/27/16 06/28/16 05:58 06:48 White Blood Count 5.6 TH/MM3 6.1 TH/MM3 Red Blood Count 3.48 MIL/MM3 3.51 MIL/MM3 Hemoglobin 10.0 GM/DL 10.0 GM/DL Hematocrit 29.8 % 30.3 % Mean Corpuscular Volume 85.7 FL 86.3 FL Mean Corpuscular Hemoglobin 28.8 PG 28.4 PG Mean Corpuscular Hemoglobin 33.6 % 32.9 % Concent Red Cell Distribution Width 16.4 % 16.4 % Platelet Count 73 TH/MM3 73 TH/MM3 Mean Platelet Volume 8.5 FL 8.6 FL Neutrophils (%) (Auto) 72.3 % 73.4 % Lymphocytes (%) (Auto) 13.6 % 14.1 % Monocytes (%) (Auto) 9.5 % 8.3 % Eosinophils (%) (Auto) 4.1 % 3.6 % Basophils (%) (Auto) 0.5 % 0.6 % Neutrophils # (Auto) 4.0 TH/MM3 4.5 TH/MM3 Lymphocytes # (Auto) 0.8 TH/MM3 0.9 TH/MM3 Monocytes # (Auto) 0.5 TH/MM3 0.5 TH/MM3 Eosinophils # (Auto) 0.2 TH/MM3 0.2 TH/MM3 Basophils # (Auto) 0.0 TH/MM3 0.0 TH/MM3 CBC Comment AUTO DIFF AUTO DIFF Differential Comment AUTO DIFF AUTO DIFF CONFIRMED CONFIRMED Tear Drop Cells 1+ 1+ Ovalocytes 1+ 1+ Platelet Estimate LOW Platelet Morphology Comment NORMAL Laboratory Tests Test 06/27/16 06/28/16 06/28/16 05:58 06:48 13:28 Sodium Level 140 MEQ/L 138 MEQ/L Potassium Level 4.8 MEQ/L 5.1 MEQ/L Chloride Level 100 MEQ/L 101 MEQ/L Carbon Dioxide Level 28.0 MEQ/L 26.5 MEQ/L Anion Gap 12 MEQ/L 11 MEQ/L Blood Urea Nitrogen 58 MG/DL 71 MG/DL Creatinine 10.46 MG/DL 12.47 MG/DL Estimat Glomerular Filtration 5 ML/MIN 4 ML/MIN Rate Random Glucose 111 MG/DL 156 MG/DL Calcium Level 7.6 MG/DL 7.2 MG/DL Total Bilirubin 0.4 MG/DL Direct Bilirubin 0.1 MG/DL Indirect Bilirubin 0.3 MG/DL Aspartate Amino Transf 11 U/L (AST/SGOT) Alanine Aminotransferase 18 U/L (ALT/SGPT) Alkaline Phosphatase 69 U/L Total Protein 6.8 GM/DL 6.6 GM/DL Albumin 3.6 GM/DL Thyroid Stimulating Hormone 18.400 uIU/ML 20.100 uIU/ML 3rd Gen Protein Corrected Calcium 7.5 MG/DL Free Thyroxine 0.68 NG/DL Total Triiodothyronine 113 NG/DL Microbiology Date/Time Procedure Status Source Growth 06/26/16 22:40 Urine Culture - Final Complete Urine Catheterized Urine NO GROWTH IN 48 HOURS. 06/27/16 20:45 Aerobic Blood Culture - Preliminary Resulted Blood Peripheral NO GROWTH IN 1 DAY 06/27/16 20:45 Anaerobic Blood Culture - Preliminary Resulted Blood Peripheral NO GROWTH IN 1 DAY 06/27/16 21:00 Aerobic Blood Culture - Preliminary Resulted Blood Peripheral NO GROWTH IN 1 DAY 06/27/16 21:00 Anaerobic Blood Culture - Preliminary Resulted Blood Peripheral NO GROWTH IN 1 DAY 06/28/16 09:05 Wound Culture Received Catheter Tip Subclavian Pending Imaging Last Impressions Central Venous Line [id number] Signed Impressions: Service Date/Time: Tuesday, June 28, 2016 09:27 - CONCLUSION: Uncomplicated Permcath removal. Garfield Caraballo MD Catheter Placement X-Ray 06/28/16 0000 Signed Impressions: Service Date/Time: Tuesday, June 28, 2016 09:32 - CONCLUSION: Uncomplicated line placement as above. Garfield Caraballo MD Carotid Artery Ultrasound 06/26/16 0000 Signed Impressions: Service Date/Time: Sunday, June 26, 2016 08:02 - CONCLUSION: Mild calcified plaque right carotid bulb. No evidence of hemodynamically significant carotid stenosis. Huseyin Wood MD Physical Exam GENERAL: This is a well-nourished, well-developed patient, in no apparent distress. SKIN: No rashes, ecchymoses or lesions. Cool and dry. HEAD: Atraumatic. Normocephalic. No temporal or scalp tenderness. EYES: Pupils equal round and reactive. Extraocular motions intact. No scleral icterus. No injection or drainage. ENT: Nose without bleeding, purulent drainage or septal hematoma. Throat without erythema, tonsillar hypertrophy or exudate. Uvula midline. Airway patent. NECK: Trachea midline. Supple, nontender, no meningeal signs. CARDIOVASCULAR: RRR Left arm AV fistula: with warmth, bruit and thrill +. Left chest wall with old scars. Rt vascath with no e.o infection. RESPIRATORY: Clear to auscultation. Breath sounds equal bilaterally. GASTROINTESTINAL: Abdomen soft, non-tender, nondistended. MUSCULOSKELETAL: Extremities without clubbing, cyanosis, or edema. NEUROLOGICAL: Awake and alert. Grossly non focal Psych: cooperative IV line sites with no e/o infection. Assessment & Plan Remarks Sepsis present on admission (h/o night sweats, low grade fevers, hypotension on admission) Possible AV fistula manipulation related infection Possible Permacath infection. Staph Epidermidis bacteremia likely causative and not contaminant given recent history of AV fistula manipulation just prior to admission. Hypotension: sepsis, HD during infection period. ESRD on HD (has AV fistula but due to hematoma does not want to use it). Current access for regular HD is the right Permacath. Penicillin allergy: rash. Recs: Follow Blood cultures repeat Vanco 1 gm in HD. Doppler left UE r/o abscess. Follow cultures Follow clinically. Dw Nursing Care Partner: HD center and IV infusion in HD. Possible DC Monday or Monday if Doppler UE negative and BCX negative at 72 plus hours. Quentin Kelly above as well. Viola Nguyen MD June 28, 2016 15:10
[2016-06-28] MEDS: diphenhydrAMINE HCL 25 MG CAP PO PRN (15:51)
[2016-06-28] MEDS: EPOETIN ALFA 10,000 UNITS/ML VIAL IV PRN (16:44)
[2016-06-28] MEDS ORDERED: HYDROmorphone HCL PF 1 MG/ML VIAL IV PUSH ONE (17:00)
--- NOTE | 2016-06-28 17:07 | RADRPT ---
EXAM DATE/TIME: 06/28/2016 09:32 [facility] COMPARISON: No previous studies available for comparison. INDICATIONS : Patient with ESRD. Permcath infected. MEDICAL HISTORY : 1, ESRD 2. CHF 3. Pulmonary hypertension 4. Anxiety 5. Hyperlipidemia 6. A fib 7. GERD 8.DM SURGICAL HISTORY : 1. Heart ablation 2. lt fistula with revision 3. Pericardial window ENCOUNTER: Initial ACUITY: 3 days PAIN SCORE: 4/10 LOCATION: low back FLUORO TIME: 0.5 IMAGE SERIES: 1 SEDATION TIME: 30minutes ACCESS: Right internal jugular vein MEDICATION(S): 1.) 3 mg midazolam (Versed) IV 2.) 150 mcg fentanyl (Sublimaze) IV DEVICE(S): 1.) 14 Tamazight dual lumen 15 cm Schon catheter PROCEDURE : 1. Ultrasound guided venipuncture. 2. Fluoroscopic guidance. 3. Central line placement. The risks, benefits and alternatives to the procedure were explained and verbal and written consent w as obtained. The site was prepped in sterile fashion. Full sterile technique was used, including ca p, mask, sterile gloves and gown and a large sterile sheet. Hand hygiene and 2% chlorhexidine prep w as utilized per protocol for cutaneous antisepsis with appropriate dry time for site. The skin and subcutaneous tissues were infiltrated with local anesthetic solution. A suitable site a matias the vein was selected with ultrasound and fluoroscopic guidance. A small incision was made. Th e vein was accessed under direct ultrasound visualization using the micropuncture technique. The lizandro ropuncture set was exchanged for a 0.035 wire. The tract was dilated. The catheter was advanced int o position under direct fluoroscopic visualization. The catheter was fixed in place with suture and a sterile dressing was applied. The patient tolerated the procedure well and there were no complications. CONCLUSION: Uncomplicated line placement as above. Garfield Caraballo MD on June 28, 2016 at 17:04 Board Certified Radiologist. This report was verified electronically.
[2016-06-28] MEDS: VANCOMYCIN INJ 1,000 MG in SODIUM CHLOR 0.9% 250 ML INJ 250 ML IV SCH (17:51)
[2016-06-28] MEDS: GENTAMICIN SULFATE (DIALYSIS USE ONLY) 20 MG/2 ML VIAL IV PRN (18:46)
[2016-06-28] MEDS: HEPARIN SODIUM - IV 10,000 UNITS/10 ML VIAL PRN (18:46)
[2016-06-28] MEDS: ATORVASTATIN 20 MG TAB PO SCH (21:18)
[2016-06-28] MEDS: HYDROmorphone HCL PF 1 MG/ML VIAL IV PUSH PRN (21:23)
[2016-06-29] VITALS (7 sets, daily range): BP systolic 100–133; BP diastolic 68–79; PULSE 80–89; RESP 15–18; TEMP 97.4–98.8; O2SAT 95–98
[2016-06-29] MEDS: ONDANSETRON HCL 4 MG/2 ML VIAL IVP PRN ×3 (00:37→22:37)
[2016-06-29] MEDS: SODIUM CHLORIDE 0.9% FLUSH 10 ML FLUSH IV FLUSH PRN (01:27)
[2016-06-29] MEDS: HYDROmorphone HCL PF 1 MG/ML VIAL IV PUSH PRN ×6 (01:27→22:38)
[2016-06-29] MEDS: LEVOTHYROXINE SODIUM 25 MCG TAB PO SCH (05:25)
[2016-06-29 07:09] LABS: AUTOMATED NEUTROPHIL # 4.3 TH/MM3 (1.8-7.7); BASOPHIL % 0.6 % (0.0-2.0); EOSINOPHIL # 0.1 TH/MM3 (0-0.4); EOSINOPHIL % 2.5 % (0.0-4.0); HEMATOCRIT 31.2 % (39.0-51.0); LYMPH % 12.9 % (9.0-44.0); LYMPHOCYTE # 0.7 TH/MM3 (1.0-4.8); MEAN CORPUSCULAR HEMOGLOBIN 29.3 PG (27.0-34.0); MONO % 10.6 % (0.0-8.0); NEUT % 73.4 % (16.0-70.0); PLATELET COUNT 83 TH/MM3 (150-450); RED BLOOD COUNT 3.63 MIL/MM3 (4.50-5.90); WHITE BLOOD COUNT 5.8 TH/MM3 (4.0-11.0)
[2016-06-29 07:15] LABS: HEMO FLAGS AUTO DIFF
[2016-06-29 07:40] LABS: BICARBONATE 31.5 MEQ/L (21.0-32.0)
[2016-06-29 07:57] LABS: OVALOCYTES 1+ (NORMAL); PLATELET ESTIMATE SMEAR LOW (NORMAL); PLATELET MORPHOLOGY NORMAL (NORMAL); SCAN/DIFF AUTO DIFF CONFIRMED
[2016-06-29] MEDS: METOPROLOL TARTRATE 25 MG TAB PO SCH ×2 (09:00→22:47)
[2016-06-29] MEDS: HEPARIN SODIUM - SQ 10,000 UNITS/ML VIAL SQ SCH ×2 (09:02→22:46)
[2016-06-29] MEDS: AMIODARONE 200 MG TAB PO SCH (09:02)
[2016-06-29] MEDS: SODIUM CHLORIDE 0.9% FLUSH 10 ML FLUSH IV FLUSH SCH ×2 (09:02→22:48)
[2016-06-29] MEDS: PANTOPRAZOLE SOD 20 MG DELAYED RELEASE TAB PO SCH ×2 (09:02→22:47)
--- NOTE | 2016-06-29 10:35 | EC ---
Study Study Date:06/29/2016 STUDY CONCLUSIONS SUMMARY - Left ventricle: The cavity size was normal. Wall thickness was increased in a pattern of moderate LVH. Systolic function was vigorous. The estimated ejection fraction was in the range of 65% to 70%. Wall motion was normal; there were no regional wall motion abnormalities. - Mitral valve: Trace to mild regurgitation. - Tricuspid valve: Mild regurgitation with Doppler evidence suggestingmoderate to severe pulmonary hypertension with an estimated systolic pulmonary pressure of 68 mm Hg. If LV function is below 40, please consider prescribing an ACEI or ARB or document rationale for non-use. PROCEDURE DATA STUDY STATUS: Elective. Procedure: Transthoracic echocardiography. Image quality was good. Scanning was performed from the parasternal, apical, and subcostal acoustic windows. Study completion: The patient tolerated the procedure well. Transthoracic echocardiography. M-mode, complete 2D, complete spectral Doppler, and color Doppler. Height: Height: 72in. Weight: Weight: 216.7lb. Body mass index: BMI: 29.5kg/m^2. Body surface area: BSA: 2.21m^2. Patient status: Inpatient. CARDIAC ANATOMY LEFT VENTRICLE: The cavity size was normal. Wall thickness was increased in a pattern of moderate LVH. Systolic function was vigorous. The estimated ejection fraction was in the range of 65% to 70%. Wall motion was normal; there were no regional wall motion abnormalities. AORTIC VALVE: Trileaflet; normal thickness leaflets. Doppler: Transvalvular velocity was within the normal range. There was no stenosis. No regurgitation. AORTA: Aortic root: The aortic root was normal in size. MITRAL VALVE: Structurally normal valve. Doppler: Transvalvular velocity was within the normal range. There was no evidence for stenosis. Trace to mild regurgitation. Mean gradient: 4mm Hg (D). Peak gradient: 8mm Hg (D). LEFT ATRIUM: The atrium was normal in size. RIGHT VENTRICLE: The cavity size was normal. Wall thickness was normal. PULMONIC VALVE: Doppler: Transvalvular velocity was within the normal range. There was no evidence for stenosis. No regurgitation. TRICUSPID VALVE: Structurally normal valve. Doppler: Mild regurgitation with Doppler evidence suggesting moderate to severe pulmonary hypertension with an estimated systolic pulmonary pressure of 68 mm Hg. PULMONARY ARTERY: The main pulmonary artery was normal-sized. RIGHT ATRIUM: The atrium was normal in size. PERICARDIUM: There was no pericardial effusion. SYSTEMIC VEINS: Inferior vena cava: The vessel was normal in size. Patient weight: 216.7lb _Ejection fraction:_ 65-75% _Fractional shortening:_ 32% up to 5Kg 5-11.5Kg 11.6-22.9Kg 23-45Kg 45-57Kg Aortic Root 7-13 <17 13-22 17-27 17-27 LA diam 6-13 <23 24-38 33-47 37-40 RVID 10-17 7-15 7-15 7-18 8-17 LVIDd 12-22 <32 24-38 33-47 37-40 LVPW 2-4 3-6 5-7 6-8 7-8 IVS 2-4 3-6 5-7 6-8 7-8 BASIC MEASUREMENTS ADULT NORMAL Left ventricle LV internal dimension, ED, chordal level, 50.3 mm 43-52 PLAX LV internal dimension, ES, chordal level, 35.1 mm 23-38 PLAX Fractional shortening, chordal level, PLAX 30 % >29 LV posterior wall thickness, ED 12 mm IVS/LVPW ratio, ED 1 <1.3 Ventricular septum Septal thickness, ED 12 mm Aortic valve Leaflet separation 18 mm 15-26 Aorta Root diameter, ED 28 mm Left atrium Anterior-posterior dimension 34 mm Anterior-posterior dimension index 1.54 cm/m^2 <2.2 BASIC MEASUREMENTS ADULT NORMAL Aortic valve Leaflet separation 18 mm 15-26 DOPPLER MEASUREMENTS ADULT NORMAL Main pulmonary artery Pressure, S *68 mm Hg =30 Aortic valve VTI, S 28.7 cm Mitral valve Peak E-wave velocity 125 cm/s Peak A-wave velocity 78 cm/s Mean velocity, D 89.1 cm/s Deceleration time *349 ms 150-230 Mean gradient, D 4 mm Hg Peak gradient, D 8 mm Hg Peak E/A ratio 1.6 Tricuspid valve Regurgitant peak velocity 394 cm/s Peak RV-RA gradient, S 62 mm Hg Systemic veins Estimated CVP 10 mm Hg Right ventricle RV pressure, S *72 mm Hg <30 Pulmonic valve Peak velocity, S 97.8 cm/s LEGEND: Mean values are shown as u=mean value. Asterisk (*) rosado values outside specified normal range. Prepared and signed by Javier Foster [id number]
--- NOTE | 2016-06-29 11:18 | HHI.NPPN ---
Subjective Renal Failure: Chronic, End Stage Renal Disease Interval History He was dialyzed yesterday. Apparently he became very upset about the past 3 years and his issues with living with ESRD. Still having pain left arm, pain at vascath site. No complications with dialysis yesterday. (Riya Arias) Objective Data Data 06/28/16 06/29/16 19:00 07:00 Intake Total 480 ml 720 ml Output Total 4000 ml 225 ml Balance -3520 ml 495 ml Intake Oral 480 ml 720 ml Output Urine Total 225 ml Hemodialysis 4000 ml # Voids 0 0 # Bowel Movements 1 Vital Signs Date Time Temp Pulse Resp B/P Pulse Ox O2 Delivery O2 Flow Rate FiO2 06/29/16 08:29 98.8 84 16 100/68 95 06/29/16 04:25 98.7 83 17 110/73 96 06/29/16 00:20 97.9 87 18 133/77 97 122/72 119/78 06/28/16 20:10 97.5 90 18 136/84 97 06/28/16 13:22 18 06/28/16 12:00 96.0 76 20 135/83 100 120/71 130/80 (Riya Arias) -: 06/29/16 0632 06/29/16 0632 Imaging Last 72 hours Impressions Central Venous Line 06/28/16 0927 Signed Impressions: Service Date/Time: Tuesday, June 28, 2016 09:27 - CONCLUSION: Uncomplicated Permcath removal. Garfield Caraballo MD Catheter Placement X-Ray 06/28/16 0000 Signed Impressions: Service Date/Time: Tuesday, June 28, 2016 09:32 - CONCLUSION: Uncomplicated line placement as above. Garfield Caraballo MD Tubes & Lines: Vas-Cath (Riya Arias) Physical Exam General Appearance: Well Developed, Well Nourished, No Acute Distress (Riya Arias) Neck Neck Exam: Neck Supple (Riya Arias) Pulmonary Resp Exam: Clear Bilaterally, Breath Sounds Equal (Riya Arias) Cardiology CV Exam: Regular, Normal Sinus Rhythm (Riya Arias) Gastrointestinal/Abdomen GI Exam: Soft, Non-Tender, Bowel Sounds Present (Riya Arias) Musculoskeletal MS Exam: Joints Intact, Normal Tone (Riya Arias) Integumentary Skin Exam: Warm, Dry (Riya Arias) Extremeties Extremities Exam: No Edema, Pedal Pulses Palpable Extremeties Remarks left arm AVF , + thrill/bruit (Riya Arias) Neurologic Neuro Exam: Alert, Awake, Oriented, Speech Clear, Moving All Extremities ( Riya Arias) Psychiatric Psych Exam: Appropriate Responses (Riya Arias) Assessment/Plan Discussed Condition With: Patient Assessment Summary: Anemia of CKD, End Stage Renal Disease Problem List: (1) ESRD (end stage renal disease) Plan: continue HD TTS, 4L UF yesterday s/p vascath placement has AVF that he "will not let us use", avoid IVF continue home medications intermittent renal panel renal diet with no protein restriction can be discharged once antibiotic therapy is arranged (2) Sepsis Plan: ID following, on vanco to be given with HD after dishcarge repeat BC negative to date, urine and catheter tip also negative doppler LUE, await results can be discharged Monday or Monday per ID (3) Metabolic bone disease Plan: on phoslo, phos level in process (4) Anemia Plan: epogen with dialysis (Riya Arias) Plan patient was seen and examined. He can be discharged from renal standpoint. Dialysis through VasCath. He will not let us use the AVF. (Noah Fair MD) Riya Arias June 29, 2016 11:18 Noah Fair MD June 30, 2016 10:32
--- NOTE | 2016-06-29 13:33 | HHI.PR ---
Subjective Remarks Follow-up for bacteremia. Patient complains of left upper extremity pain after her ultrasound today. He states that he has been exacerbated with chronic pain. He states that the Dilaudid helps the pain in his right upper extremity and redness catheter was exchanged yesterday. He had an episode of vomiting earlier after receiving Dilaudid. Zofran improved his symptoms. Discussed with RN. The patient denies any chest pain or shortness of breath. He had a bowel movement today. Objective Vitals Vital Signs Date Time Temp Pulse Resp B/P Pulse Ox O2 Delivery O2 Flow Rate FiO2 06/29/16 11:58 98.0 82 16 120/75 95 124/73 130/79 06/29/16 08:29 98.8 84 16 100/68 95 06/29/16 04:25 98.7 83 17 110/73 96 06/29/16 00:20 97.9 87 18 133/77 97 122/72 119/78 06/28/16 20:10 97.5 90 18 136/84 97 I/O 06/28/16 06/28/16 06/28/16 06/29/16 06/29/16 06/29/16 07:00 15:00 23:00 07:00 15:00 23:00 Intake Total 0 ml 480 ml 480 ml 240 ml Output Total 250 ml 4000 ml 225 ml Balance -250 ml 480 ml -3520 ml 15 ml Intake Oral 0 ml 480 ml 480 ml 240 ml Output Urine Total 250 ml 225 ml Hemodialysis 4000 ml # Voids 0 0 # Bowel Movements 0 0 1 Result Diagram: 06/29/16 0632 06/29/16 0632 Imaging Last Impressions Central Venous Line 06/28/1627 Signed Impressions: Service Date/Time: Tuesday, June 28, 2016 09:27 - CONCLUSION: Uncomplicated Permcath removal. Garfield Caraballo MD Catheter Placement X-Ray 06/28/16 0000 Signed Impressions: Service Date/Time: Tuesday, June 28, 2016 09:32 - CONCLUSION: Uncomplicated line placement as above. Garfield Caraballo MD Carotid Artery Ultrasound 06/26/16 0000 Signed Impressions: Service Date/Time: Sunday, June 26, 2016 08:02 - CONCLUSION: Mild calcified plaque right carotid bulb. No evidence of hemodynamically significant carotid stenosis. Huseyin Wood MD Objective Remarks GENERAL: Well-developed well-nourished. In no acute distress. SKIN: Warm and dry. Vas-Cath in place on right upper chest. LUE AVF. HEENT: Normocephalic. Pupils equal and round. Mucous membranes pink and moist. CARDIOVASCULAR: Regular rate and rhythm. No murmur appreciated. RESPIRATORY: No accessory muscle use. Clear to auscultation. Breath sounds equal bilaterally. GASTROINTESTINAL: Abdomen soft, non-tender, nondistended. Bowel sounds x4. MUSCULOSKELETAL: No obvious deformities. No clubbing or cyanosis. No edema. NEUROLOGICAL: Awake and alert. No focal neurological deficits. Moves upper and lower extremities spontaneously. Normal speech. PSYCHIATRIC: Slightly depressed mood and affect; insight and judgment normal. A/P Assessment and Plan 51-year-old male with a past medical history of ESRD, diet-controlled DM, HTN, CHF, pulmonary HTN who presented for lightheadedness and hypotension following dialysis //Presyncope on admission. Following dialysis session. Likely secondary to low blood pressure at the time. Improved currently. Ultrasound carotids negative for significant stenosis. Non-orthostatic. -Echocardiogram showed moderate LVH, normal systolic function EF 65%, suggestion of moderate to severe pulmonary hypertension. //Possible sepsis on admission.Banded neutrophils on admission. Hypotension on admission, and patient was on beta melvin. //Bacteremia -Blood cultures(see other profile) growing staph epidermidis -ID consulted, discussed with Dr. Nguyen, follow up repeat blood cultures 5 days -Follow up repeat blood cultures as well as catheter tip culture, NGTD -Continue antibiotics. -Checking ultrasound of left upper extremity AVF //End-stage renal disease on dialysis Monday to Patient refuses renal diet. Nephrology to follow for hemodialysis. //left arm fistula -Patient believes this is not working appropriately. Nephrology consulted. Ultrasound as above. -IV Dilaudid as needed for pain //afib //History of CHF //History of suspected pulmonary arterial hypertension. -Continue beta melvin lower dose due to hypotension. Hold blood pressure medications. Continue sildenafil. Patient is not on anticoagulation. -Continue amiodarone //depression, no si. //History of anxiety Hold anxiolytics in setting of hypertension on admission. Patient declines medical treatment, but does believe that he is clinically depressed. Would like to follow up with psychiatrist or counselor as outpatient -Treat thyroid as below -Temazepam for insomnia //GERD. Chronic. Continue PPI //DM - past diagnosis of diabetes, however says that this is resolved. Patient refuses DM diet, ssi //Hypothyroidism. TSH elevated, T4 low. Resumed previous dose of levothyroxine. //Nausea and vomiting. Suspect secondary to medication side effect. Antiemetics as needed. Chnage dosing of IV zofran to coincide with dilaudid. Written by Jf Chen, acting as scribe for Dr. Bolaños on 06/29/16 at 13:31. Discharge Planning Follow up results of blood cultures Attending Statement This note was transcribed by scribe [Jf Chen]. I, Dr. Yazan Bolaños personally performed the history, physical exam, and medical decision making; and confirmed the accuracy of the information in the transcribed note. Authenticated by Dr. Yazan Bolaños on 06/29/16 at 21:19. Jf Chen June 29, 2016 13:33 Yazan Bolaños MD June 29, 2016 21:20
--- NOTE | 2016-06-29 13:50 | RADRPT ---
EXAM DATE/TIME: 06/29/2016 10:54 [facility] COMPARISON: No previous studies available for comparison. INDICATIONS : Bilateral arm swelling. Septic thrombophlebitis. MEDICAL HISTORY : Congestive heart failure. Myocardial infarction. Hypercholesterolemia. CVA. Numbness, bilateral hands . Cardiomyopathy. Irregular heartbeat. Chest pain. Afib. HTN. COPD. Pneumonia. Dyspnea. Pancreatitis. Inguinal hernia. Renal disease and failure. Arthritis. Gout. Diabetes. Depression. Anxiety. Anemia. HBV. CIDS. Anitcoagulant therapy, Heparin. SURGICAL HISTORY : Tonsillectomy. Cardiac ablation. AV fistula. Cardiac cath. Dialysis. Blood transfusions. ENCOUNTER: Initial ACUITY: 1 week PAIN SCORE: 8/10 LOCATION: Bilateral arm. FINDINGS: RIGHT UPPER EXTREMITY: There is spontaneous flow documented in the brachial, basilic, cephalic, axillary, and subclavian vei ns. The vessels are compressible and augmentation response is documented. No filling defects are se en. The flow is phasic with respiration. Direction of flow in the jugular vein is caudal. LEFT UPPER EXTREMITY: There is spontaneous flow documented in the brachial, basilic, cephalic, axillary, and subclavian vei ns. The vessels are compressible and augmentation response is documented. No filling defects are se en. The flow is phasic with respiration. Direction of flow in the jugular vein is caudal. A left ar m AV fistula is patent CONCLUSION: Normal examination. John Warren MD on June 29, 2016 at 13:47 Board Certified Radiologist. This report was verified electronically.
[2016-06-29] MEDS: ATORVASTATIN 20 MG TAB PO SCH (22:47)
[2016-06-30] VITALS (7 sets, daily range): BP systolic 113–140; BP diastolic 61–76; PULSE 72–84; RESP 18–20; TEMP 97.6–98.3; O2SAT 95–99
[2016-06-30] MEDS: ONDANSETRON HCL 4 MG/2 ML VIAL IVP PRN ×2 (02:54→06:32)
[2016-06-30] MEDS: HYDROmorphone HCL PF 1 MG/ML VIAL IV PUSH PRN ×5 (02:56→22:10)
[2016-06-30] MEDS: diphenhydrAMINE HCL 25 MG CAP PO PRN ×2 (04:30→14:18)
[2016-06-30] MEDS: LEVOTHYROXINE SODIUM 25 MCG TAB PO SCH (05:36)
[2016-06-30] MEDS: SODIUM CHLORIDE 0.9% FLUSH 10 ML FLUSH IV FLUSH SCH ×2 (09:00→20:32)
[2016-06-30] MEDS: METOPROLOL TARTRATE 25 MG TAB PO SCH ×2 (09:00→20:28)
[2016-06-30] MEDS: AMIODARONE 200 MG TAB PO SCH (09:00)
[2016-06-30] MEDS: PANTOPRAZOLE SOD 20 MG DELAYED RELEASE TAB PO SCH ×2 (09:00→20:28)
[2016-06-30] MEDS: HEPARIN SODIUM - SQ 10,000 UNITS/ML VIAL SQ SCH (09:00)
--- NOTE | 2016-06-30 10:44 | HHI.NPPN ---
Subjective Renal Failure: Chronic, End Stage Renal Disease Interval History Due for dialysis today. He is requesting Phenergan and Xanax by name. Afebrile. (Riya Arias) Objective Data Data 06/29/16 06/30/16 19:00 07:00 Intake Total 800 ml 720 ml Balance 800 ml 720 ml Intake Oral 800 ml 720 ml # Voids 4 0 # Bowel Movements 1 0 Vital Signs Date Time Temp Pulse Resp B/P Pulse Ox O2 Delivery O2 Flow Rate FiO2 06/30/16 08:00 98.3 72 18 117/68 99 06/30/16 03:10 98.3 74 18 140/75 97 132/71 137/76 06/30/16 00:00 98.1 80 20 118/74 95 06/29/16 20:01 97.4 81 18 123/69 98 06/29/16 17:00 89 06/29/16 16:55 97.9 80 15 117/71 95 06/29/16 11:58 98.0 82 16 120/75 95 124/73 130/79 (Riya Arias) -: 06/29/16 0632 06/29/16 0632 Tubes & Lines: Vas-Cath (Riya Arias) Physical Exam General Appearance: Well Developed, Well Nourished, No Acute Distress (Riya Arias) Neck Neck Exam: Neck Supple (Riya Arias) Pulmonary Resp Exam: Clear Bilaterally, Breath Sounds Equal (Riya Arias) Cardiology CV Exam: Regular, Normal Sinus Rhythm (Riya Arias) Gastrointestinal/Abdomen GI Exam: Soft, Non-Tender, Bowel Sounds Present (Riya Arias) Musculoskeletal MS Exam: Joints Intact, Normal Tone (Riya Arias) Integumentary Skin Exam: Warm, Dry (Riya Arias) Extremeties Extremities Exam: No Edema, Pedal Pulses Palpable Extremeties Remarks left arm AVF , + thrill/bruit (Riya Arias) Neurologic Neuro Exam: Alert, Awake, Oriented, Speech Clear, Moving All Extremities ( Riya Arias) Psychiatric Psych Exam: Appropriate Responses (Riya Arias) Assessment/Plan Discussed Condition With: Patient Assessment Summary: Anemia of CKD, End Stage Renal Disease Problem List: (1) ESRD (end stage renal disease) Plan: continue HD TTS, due for treatment today s/p vascath placement ; will need permcath exchange prior to discharge when cleared by ID, consult for IR placed has AVF that he "will not let us use", avoid IVF continue home medications intermittent renal panel renal diet with no protein restriction can be discharged once antibiotic therapy is arranged (2) Sepsis Plan: ID following, on vancomycin, monitor levels permcath exchange pending to be given with HD after discharge repeat BC negative to date, urine and catheter tip also negative Doppler LUE negative for abscess can be discharged Monday or Monday per ID (3) Metabolic bone disease Plan: continue phoslo (4) Anemia Plan: epogen with dialysis (Riya Arias) Problem List: (1) ESRD (end stage renal disease) Plan: continue HD TTS, due for treatment today s/p vascath placement ; will need permcath exchange prior to discharge when cleared by ID, consult for IR placed has AVF that he "will not let us use", avoid IVF continue home medications intermittent renal panel renal diet with no protein restriction can be discharged once antibiotic therapy is arranged (2) Sepsis Plan: ID following, on vancomycin, monitor levels permcath exchange pending to be given with HD after discharge repeat BC negative to date, urine and catheter tip also negative Doppler LUE negative for abscess can be discharged Monday or Monday per ID (3) Metabolic bone disease Plan: continue phoslo (4) Anemia Plan: epogen with dialysis Plan patient was seen and examined. Discussed with Dr. Nguyen. We will schedule for PermCath placement. He can be discharged from renal standpoint. Outpatient therapy with Vancomycin for [address] Nguyen (Noah Fair MD) Riya Arias June 30, 2016 10:44 Noah Fair MD June 30, 2016 20:21
[2016-06-30] MEDS ORDERED: METOCLOPRAMIDE HCL 10 MG/2 ML VIAL IV PUSH PRN (11:45)
[2016-06-30] MEDS ORDERED: ALPRAZolam 0.25 MG TAB PO ONE (11:45)
[2016-06-30] MEDS: CALCIUM ACETATE 667 MG CAP PO SCH ×2 (13:00→18:06)
--- NOTE | 2016-06-30 13:01 | HHI.PR ---
Subjective Remarks Follow up for bacteremia. The patient complains of right sided neck pain at site of right vascath, he wants this removed when possible and have a permanent catheter placed. He reports sweats overnight. He also reports severe nausea overnight, no vomiting. He is able to tolerate oral intake. Denies abdominal pain. Had a formed BM yesterday. He has no other medical complaints at this time. Objective Vitals Vital Signs Date Time Temp Pulse Resp B/P Pulse Ox O2 Delivery O2 Flow Rate FiO2 06/30/16 11:58 97.6 73 18 114/70 95 06/30/16 08:00 98.3 72 18 117/68 99 06/30/16 03:10 98.3 74 18 140/75 97 132/71 137/76 06/30/16 00:00 98.1 80 20 118/74 95 06/29/16 20:01 97.4 81 18 123/69 98 06/29/16 17:00 89 06/29/16 16:55 97.9 80 15 117/71 95 I/O 06/29/16 06/29/16 06/29/16 06/30/16 06/30/16 06/30/16 07:00 15:00 23:00 07:00 15:00 23:00 Intake Total 240 ml 1280 ml 240 ml Output Total 225 ml Balance 15 ml 1280 ml 240 ml Intake Oral 240 ml 1280 ml 240 ml Output Urine Total 225 ml # Voids 4 0 # Bowel Movements 1 1 0 Result Diagram: 06/29/16 0632 06/29/16 0632 Imaging Last Impressions Upper Extremity Ultrasound 06/29/16 0000 Signed Impressions: Service Date/Time: Wednesday, June 29, 2016 10:54 - CONCLUSION: Normal examination. John Warren MD Central Venous Line 06/28/16 0927 Signed Impressions: Service Date/Time: Tuesday, June 28, 2016 09:27 - CONCLUSION: Uncomplicated Permcath removal. Garfield Caraballo MD Catheter Placement X-Ray 06/28/16 0000 Signed Impressions: Service Date/Time: Tuesday, June 28, 2016 09:32 - CONCLUSION: Uncomplicated line placement as above. Garfield Caraballo MD Carotid Artery Ultrasound 06/26/16 0000 Signed Impressions: Service Date/Time: Sunday, June 26, 2016 08:02 - CONCLUSION: Mild calcified plaque right carotid bulb. No evidence of hemodynamically significant carotid stenosis. Huseyin Wood MD Objective Remarks GENERAL: Well-nourished, well-developed middle aged male patient in [facility]. SKIN: Warm and dry. No rash. HEENT: Normocephalic. Atraumatic. Pupils equal and round. Mucous membranes pink and moist. NECK: Supple. Trachea midline. Right IJ vascath. CARDIOVASCULAR: Regular rate and rhythm. S1, S2 noted. No murmur appreciated. RESPIRATORY: No accessory muscle use. Clear to auscultation. Breath sounds equal bilaterally. GASTROINTESTINAL: Abdomen soft, non-tender, nondistended. Normoactive bowel sounds x4. MUSCULOSKELETAL: No obvious deformities. Extremities without clubbing, cyanosis , or edema. LUE AV fistula with +thrill/bruit. NEUROLOGICAL: Awake and alert. No obvious cranial nerve deficits. Motor grossly within normal limits. Normal speech. PSYCHIATRIC: Appropriate mood and affect; insight and judgment normal. Procedures 06/28/16 - Permcath removed, Right IJ vascath placed by IR Dr. Caraballo. Medications and IVs Current Medications Medications (Trade) Dose Ordered Sig/Corinne Route Start Time Stop Time Status Last Admin (NS Flush) 2 ml UNSCH PRN IV FLUSH 06/26/16 02:45 06/29/16 01:27 (NS Flush) 2 ml BID IV FLUSH 06/26/16 09:00 06/30/16 09:00 (Tylenol) 650 mg Q4H PRN PO 06/26/16 02:45 06/27/16 05:24 (Lipitor) 20 mg HS PO 06/26/16 21:00 06/29/16 22:47 (Protonix) 20 mg BID PO 06/26/16 09:00 06/30/16 09:00 (Phenergan) 25 mg Q6H PRN PO 06/26/16 02:45 (Lopressor) 25 mg Q12HR PO 06/26/16 21:00 06/30/16 09:00 Patient Own Medication PT OWN MED:SILDENAFIL CITRATE 20... BID PO 06/27/16 09:00 Hold (NS 1000 ml Inj) 1,000 ml @ 0 mls/hr Q0M PRN IV 06/27/16 09:10 Heparin Sodium (Porcine) 8000 units 8,000 units UNSCH PRN IVF 06/27/16 09:15 Sodium Chloride 1,000 ml @ 200 mls/hr Q5H PRN IV 06/27/16 09:10 (NS 1000 ml Inj) 1,000 ml @ 0 mls/hr Q0M PRN IV 06/27/16 09:10 (Mannitol Inj) 12.5 gm UNSCH PRN IV 06/27/16 09:15 (Albumin 25% Inj) 25 gm UNSCH PRN IV 06/27/16 09:15 (NS Flush) 5 ml UNSCH PRN IV FLUSH 06/27/16 09:15 (Heparin Inj) UNSCH PRN .XX 06/27/16 09:15 06/28/16 18:46 (Gentamicin (Dialysis) Inj) 20 mg UNSCH PRN IV 06/27/16 09:15 06/28/16 18:46 (Zofran Inj) 4 mg UNSCH PRN IV 06/27/16 09:15 (Tylenol) 650 mg UNSCH PRN PO 06/27/16 09:15 (Benadryl) 25 mg UNSCH PRN PO 06/27/16 09:15 06/30/16 04:30 (Nitrostat Sl) 0.4 mg UNSCH PRN SL 06/27/16 09:15 (Catapres) 0.1 mg UNSCH PRN PO 06/27/16 09:15 (Epogen Inj) 10,000 units UNSCH PRN IV 06/27/16 09:15 06/28/16 16:44 (Gelfoam 12 Mm/7 Mm Top) 1 foam UNSCH PRN TOP 06/27/16 09:15 (Tylenol) 650 mg Q6H PRN PO 06/27/16 16:00 ([place] 5-325 Mg) 1 tab Q4H PRN PO 06/27/16 16:00 ([place] 10-325 Mg) 1 tab Q4H PRN PO 06/27/16 16:00 06/28/16 12:22 (Narcan Inj) 0.4 mg UNSCH PRN IV 06/27/16 16:00 (Heparin Inj) 5,000 units Q12HR SQ 06/27/16 21:00 06/30/16 09:00 (NS Flush) UNSCH PRN IVF 06/28/16 09:15 (Heparin Inj) UNSCH PRN IV FLUSH 06/28/16 09:15 (Synthroid) 25 mcg DAILY@0600 PO 06/29/16 06:00 06/30/16 05:36 (Cordarone) 200 mg DAILY PO 06/29/16 09:00 06/30/16 09:00 (Restoril) 15 mg HS PRN PO 06/28/16 14:15 06/29/16 01:42 (Dilaudid Pf Inj) 0.5 mg Q4H PRN IV PUSH 06/28/16 17:00 06/30/16 06:32 (Zofran Inj) 4 mg Q4H PRN IVP 06/29/16 16:45 06/30/16 06:32 (Phoslo) 667 mg TID PO 06/30/16 13:00 (Reglan Inj) 10 mg Q8H PRN IV PUSH 06/30/16 11:45 A/P Assessment and Plan 51-year-old male with a past medical history of ESRD, diet-controlled DM, HTN, CHF, pulmonary HTN who presented for lightheadedness and hypotension following dialysis //Presyncope: on admission. Following dialysis session. Likely secondary to hypotension at the time. -Carotid U/S negative for significant stenosis. -Non-orthostatic. -Echocardiogram showed moderate LVH, normal systolic function EF 65%, suggestion of moderate to severe pulmonary hypertension. -symptoms improved //Suspected sepsis with Bacteremia: Banded neutrophils on admission. Hypotension on admission, and patient was on beta melvin. -Blood cultures(see other visit profile) growing staph epidermidis -ID consulted, discussed with Dr. Nguyen, follow up repeat blood cultures 5 days -Follow up repeat blood cultures as well as catheter tip culture, NGTD -Continue IV Vanco with dialysis -Ultrasound of left upper extremity AVF unremarkable -possible discharge tomorrow or Monday per ID //End-stage renal disease on dialysis Monday to -Patient refuses renal diet. -Nephrology to follow for hemodialysis. -s/p vascath placement ; will need permcath exchange prior to discharge when ok with ID, consulted IR //left arm fistula -Patient believes this is not working appropriately. Nephrology consulted. Ultrasound as above. -IV Dilaudid as needed for pain //afib //History of CHF //History of suspected pulmonary arterial hypertension. -Continue beta melvin lower dose due to hypotension. Hold blood pressure medications. Continue sildenafil. Patient is not on anticoagulation. -Continue amiodarone //depression, no si. //History of anxiety -Hold anxiolytics in setting of hypertension on admission. -Patient declines medical treatment, but does believe that he is clinically depressed. Would like to follow up with psychiatrist or counselor as outpatient -Treat thyroid as below -Temazepam for insomnia //GERD. Chronic. Continue PPI //DM - past diagnosis of diabetes, however says that this is resolved. Patient refuses DM diet, ssi //Hypothyroidism. TSH elevated, T4 low. Resumed previous dose of levothyroxine. //Nausea and vomiting. Suspect secondary to medication side effect. Antiemetics as needed. Changed dosing of IV zofran to coincide with dilaudid. Added IV Reglan prn. DVT Prophylaxis: heparin sq Discussed with Dr. Bolaños. Nyla Ramirez PA-C June 30, 2016 1:01 pm
--- NOTE | 2016-06-30 13:49 | HHI.FF ---
Infusion Therapy Location of Infusion Therapy: Dialysis Center Patient Information Appointment Date: July 02, 2016 Patient Weight 98.4 kg Diagnosis: Diagnosis Staph bacteremia after AV fistula used. Presented with Sepsis with hypotension. ESRD on HD ,Mon. Coded Allergies: Albuterol (Verified Allergy, Severe, 06/25/16) violent shaking Meclizine (Verified Allergy, Severe, 06/25/16) swelling Penicillin (Verified Allergy, Severe, Rash, 06/25/16) Uncoded Allergies: plastic tape (Allergy, Severe, 06/25/16) breaks out Administer Medication Vancomycin 1 gram IV q 48 hours w/Hemodialysis , Start Treatment: June 30, 2016 Stop Treatment: July 12, 2016 Additional Information Venous access: Tunneled Catheter Additional Instructions [x] Peripheral flush and dressing changes per protocol [x] Implanted port and central can line examiner: * Implanted port: 10 ml Normal Saline followed by 5 ml Heparin 100 units/ml Heparin flush after each use and monthly to maintain. [] May leave port accessed during therapy. [] May leave peripheral site accessed for duration of therapy. [x] If patient has SOB or respiratory distress, check oxygen saturation. If less than 90% or clinical signs of respiratory distress, administer oxygen at 2 L/min. via nasal cannula and notify physician. [x] Anaphylaxis/Reaction orders: * Stop infusion. * Keep IV line open with saline flush. * Notify physician. * Monitor vital signs every 15 minutes until symptoms resolve. * Check Oxygen saturation; Oxygen at 2 L/min. via nasal cannula if less than 90% or clinical signs of respiratory distress. * Administer diphenhydramine (Benadryl) 25 mg IV STAT, (unless patient has received as pre-med). May repeat once, if necessary. * Solu-Cortef 250 mg IVP over 30-60 seconds, use 100 mg vials for each dissolution. * Epinephrine (1mg/1 ml) 0.3 mg subcutaneously or IVP now with any signs of respiratory distress. * Check with physician for new additional pre-med orders if patient is re- challenged or re-treated. [x] May remove PICC line when treatment complete, after confirming with Physician. [x] If the patient is admitted to the hospital, the ED, or transferred via [facility] , complete transfer form including medication reconciliation order sheet. Laboratory Tests Weekly Labs: CBC w/diff, Creatinine, Vancomycin Trough (target 15-20) Additional Information Please draw weekly labs as above, fax weekly labs while on IV antibiotics and Call with abnormals, change in clinical condition or problems to: or covering ID Physician Follow up appt: Follow up with PCP Follow up with other MDs as planned. Counseling: Counseled about medication side effects Counseled about PICC line care and hand hygiene. Viola Nguyen MD June 30, 2016 13:49
[2016-06-30] MEDS ORDERED: SOLU250I IV PUSH (13:56)
[2016-06-30] MEDS ORDERED: EPIN1INJ21 SQ (13:56)
[2016-06-30] MEDS ORDERED: VANC1000P IV (13:56)
[2016-06-30] MEDS ORDERED: EPIN1INJ21 IV PUSH (13:56)
--- NOTE | 2016-06-30 14:05 | HHI.PR ---
Addendum to Inpatient Note Addendum Reason: Additional Documentation Additional Information Infusion orders for IV antibiotics in chart. notified. Will sign off please call back with questions or change in condition. Viola Nguyen MD June 30, 2016 14:05
[2016-06-30] MEDS: ONDANSETRON HCL 4 MG/2 ML VIAL IV PRN ×3 (14:18→22:09)
[2016-06-30] MEDS: EPOETIN ALFA 10,000 UNITS/ML VIAL IV PRN (15:20)
[2016-06-30] MEDS: VANCOMYCIN INJ 1,000 MG in SODIUM CHLOR 0.9% 250 ML INJ 250 ML IV SCH (16:01)
[2016-06-30] MEDS: GENTAMICIN SULFATE (DIALYSIS USE ONLY) 20 MG/2 ML VIAL IV PRN (17:02)
[2016-06-30] MEDS: HEPARIN SODIUM - IV 10,000 UNITS/10 ML VIAL PRN (17:03)
[2016-06-30] MEDS: ATORVASTATIN 20 MG TAB PO SCH (20:28)
[2016-06-30 22:22] LABS: APTT (PATIENT) 30.1 SEC (24.3-30.1); PROTHROMBIN TIME - PATIENT 11.3 SEC (9.8-11.6)
[2016-07-01] VITALS (8 sets, daily range): BP systolic 99–125; BP diastolic 62–74; PULSE 67–79; RESP 16–18; TEMP 96.4–98.8; O2SAT 96–100
[2016-07-01] MEDS: ONDANSETRON HCL 4 MG/2 ML VIAL IV PRN ×2 (02:09→14:43)
[2016-07-01] MEDS: HYDROmorphone HCL PF 1 MG/ML VIAL IV PUSH PRN ×4 (02:10→16:55)
[2016-07-01] MEDS: ONDANSETRON HCL 4 MG/2 ML VIAL IVP PRN (06:23)
[2016-07-01] MEDS: LEVOTHYROXINE SODIUM 25 MCG TAB PO SCH (06:23)
[2016-07-01] MEDS ORDERED: VANCOMYCIN INJ 1,000 MG in SODIUM CHLOR 0.9% 250 ML INJ 250 ML IV SCH (08:45)
[2016-07-01] MEDS: CALCIUM ACETATE 667 MG CAP PO SCH ×3 (09:00→17:22)
[2016-07-01] MEDS: AMIODARONE 200 MG TAB PO SCH (09:00)
[2016-07-01] MEDS: METOPROLOL TARTRATE 25 MG TAB PO SCH (09:21)
[2016-07-01] MEDS: SODIUM CHLORIDE 0.9% FLUSH 10 ML FLUSH IV FLUSH SCH (09:21)
[2016-07-01] MEDS ORDERED: MIDAZOLAM HCL 5 MG/5 ML VIAL ONE (10:08)
[2016-07-01] MEDS ORDERED: fentaNYL CITRATE 250 MCG/5 ML AMP ONE (10:08)
[2016-07-01] MEDS ORDERED: LIDOCAINE 1%/EPINEPHrine 1:100,000 SOLN 20 ML VIAL ONE (10:13)
--- NOTE | 2016-07-01 10:49 | HHI.NPPN ---
Subjective Renal Failure: Chronic, End Stage Renal Disease Interval History In route for Permcath placement. Had dialysis yesterday. (Riya Arias) Objective Data Data 06/30/16 07/01/16 19:00 07:00 Intake Total 720 ml Output Total 2000 ml 125 ml Balance -2000 ml 595 ml Intake Oral 720 ml Output Urine Total 125 ml Hemodialysis 2000 ml # Voids 0 # Bowel Movements 0 Vital Signs Date Time Temp Pulse Resp B/P Pulse Ox O2 Delivery O2 Flow Rate FiO2 07/01/16 07:57 98.4 74 16 107/67 98 104/64 99/62 07/01/16 03:08 98.8 74 18 124/65 96 06/30/16 23:34 98.1 77 18 117/61 96 113/65 120/65 06/30/16 21:00 82 06/30/16 20:01 97.6 84 19 115/63 96 06/30/16 11:58 97.6 73 18 114/70 95 (Riya Arias) -: 06/29/16 0632 06/29/16 0632 Imaging Last 72 hours Impressions Upper Extremity Ultrasound 06/29/16 0000 Signed Impressions: Service Date/Time: Wednesday, June 29, 2016 10:54 - CONCLUSION: Normal examination. John Warren MD Tubes & Lines: Vas-Cath (Riya Arias) Physical Exam General Appearance: Well Developed, Well Nourished, No Acute Distress (Riya Arias) Neck Neck Exam: Neck Supple (Riya Arias) Pulmonary Resp Exam: Clear Bilaterally, Breath Sounds Equal (Riya Arias) Cardiology CV Exam: Regular, Normal Sinus Rhythm (Riya Arias) Gastrointestinal/Abdomen GI Exam: Soft, Non-Tender, Bowel Sounds Present (Riya Arias) Musculoskeletal MS Exam: Joints Intact, Normal Tone (Riya Arias) Integumentary Skin Exam: Warm, Dry (Riya Arias) Extremeties Extremities Exam: No Edema, Pedal Pulses Palpable Extremeties Remarks left arm AVF , + thrill/bruit (Riya Arias) Neurologic Neuro Exam: Alert, Awake, Oriented, Speech Clear, Moving All Extremities ( Riya Arias) Psychiatric Psych Exam: Appropriate Responses (Riya Arias) Assessment/Plan Discussed Condition With: Patient Assessment Summary: Anemia of CKD, End Stage Renal Disease Problem List: (1) ESRD (end stage renal disease) Plan: continue HD TTS, he had 2L UF yesterday in route for Permcath placement has AVF that he "will not let us use", avoid IVF, continue home medications stable for discharge when antibiotics are arranged if late in the day, we will dialyze prior to discharge Monday (2) Sepsis Plan: ID following, on vancomycin, monitor levels permcath exchange pending to be given with HD after discharge until 07/12 repeat BC negative to date, urine and catheter tip also negative Doppler LUE negative for abscess (3) Metabolic bone disease Plan: continue phoslo (4) Anemia Plan: epogen with dialysis (Riya Arias) Plan patient was seen and examined. PermCath is placed. He can be discharged from renal standpoint. (Noah Fair MD) Riya Arias July 01, 2016 10:49 Noah Fair MD July 01, 2016 13:59
[2016-07-01] MEDS ORDERED: HYDROmorphone HCL PF 2 MG/ML VIAL ONE (10:54)
[2016-07-01] MEDS ORDERED: LEVO25TA4 PO (11:14)
[2016-07-01] MEDS ORDERED: METO25TA3 PO (11:14)
[2016-07-01] MEDS ORDERED: AMIO200T PO (11:14)
--- NOTE | 2016-07-01 11:20 | PD.RAD ---
Post Procedure Progress Note Pre Procedure Diagnosis: (1) ESRD (end stage renal disease) Post Procedure Diagnosis: (1) ESRD (end stage renal disease) Procedure Date: July 01, 2016 Supervising Radiologist: Sherwin Cummins JR Proceduralist/Assist: Estefania Charles, RT(R), Clarissa Smith, RT(R) Anesthesia: Conscious Sedation Plan of Activity Patient to Unit: ROPU Patient Condition: Good See PACS Report for procedural detail/treatment Central Venous Access Device Procedure 1 Right Internal Jugular Hemodialysis Catheter Tunneled Conversion dual lumen [place]: 15 Findings: Placed Permcath. Functions well. Ok to use. Plan Remove sutures in right neck and holding catheter in place in 2-3 weeks Jr Placido.,Sherwin Delgadillo MD July 01, 2016 11:20
[2016-07-01] MEDS ORDERED: HEPARIN SODIUM - IV 2,000 UNITS/2 ML VIAL IV FLUSH PRN (11:30)
[2016-07-01] MEDS ORDERED: SODIUM CHLORIDE 0.9% FLUSH 10 ML FLUSH IVF PRN (11:30)
--- NOTE | 2016-07-01 11:44 | PQ ---
Physician Query Response Document PATIENT: DEBBIE MCCLURE : 1965 ADMIT DATE: 06/26/2016 2:03 AM DISCH DATE: RESPONDING PROVIDER #: [email or web address] QUERY TEXT: Sepsis Query Based on your medical judgement, can you further clarify the statement of SEPSIS: 1. Sepsis (SIRS due to an infection) 2. Sepsis with Organ Dysfunction 3. A localized Infection only 4. Another condition - please specify 5. Unable to determine - please explain. Depending on your selection above, please indicate one of the below if applicable: - Sepsis was present on Admission - Sepsis developed after admission The patient's Clinical Indicators include: 06/26/16 PER H //Presyncope on admission. Following dialysis session. //Possible sepsis on admission.?Banded neutrophils on admission. Hypotension on admission, //End-stage renal disease on dialysis Monday to 06/27/16 PER ID CONSULT ASSESSMENT AND PLAN: Sepsis present on admission (h/o night sweats, low grade fevers, hypotension on admission) Possible AV fistula manipulation related infection Possible Permacath infection. CLINICAL INDICATORS: NO RECORDED FEVER, TACHYCARDIA OR TACHYPNEA NO LEUKOCYTOSIS NO RECORDED LACTIC ACID ELEVATION Query created by: Frances Granados on 06/28/2016 8:09 AM RESPONSE TEXT: Severe sepsis with Shock on admission. Patient was transferred from [place] - should have been a [facility] sfer. (please see this encounter for labs and vitals on 06/25) On 06/25 presentation to ED had bands 18 %, Shock with BP 84/48, Resp rate 22 on presentation, near syncope. Patient is on beta melvin so wou ld not necessarily see tachycardia. Suspected graft vs permacath infection. Electronically signed by: Yazan Bolaños MD 07/01/2016 11:41 AM
[2016-07-01] MEDS: PANTOPRAZOLE SOD 20 MG DELAYED RELEASE TAB PO SCH (13:50)
[2016-07-01] MEDS: SODIUM CHLORIDE 0.9% FLUSH 10 ML FLUSH IV FLUSH PRN (14:47)
--- NOTE | 2016-07-01 14:47 | HHI.DS ---
cc: Dr. Jimbo Marie Discharge Summary Admission Date Jun 26, 2016 at 2:03 am Discharge Date: July 01, 2016 Admitting Diagnosis (1) Sepsis ICD Code: A41.9 Diagnosis: Principal (2) Bacteremia ICD Code: R78.81 Diagnosis: Principal (3) ESRD (end stage renal disease) ICD Code: N18.6 Diagnosis: Secondary (4) Near syncope ICD Code: R55 Diagnosis: Secondary (5) Hypotension ICD Code: I95.9 Diagnosis: Secondary Procedures 06/28/16 - Permcath removed, Right IJ vascath placed by IR Dr. Caraballo. 07/01/16 - Permcath placed by IR Brief History - From Admission 51-year-old male with history of end-stage renal disease on hemodialysis Monday , , Monday, fistula revision in January, as well as recent fistulogram on Monday, diabetes diet controlled, hypertension, CHF, pulmonary hypertension, who presents with lightheadedness, hypotension following dialysis on 06/24. He reports that his left arm was burning during dialysis, that he experienced lightheadedness. Upon arriving home, found blood pressure to be in the 70s systolic, with normal heart rate. He says he feels as if he was going to pass out. Denies any unilateral weakness. He does report having some chest pressure at the time, however denies any currently. He reports a several month history of intermittent sharp abdominal pain, does report issues with constipation over the past couple months. CBC/BMP: 06/29/16 0632 06/29/16 0632 Significant Findings Laboratory Tests Test 06/29/16 06:32 Red Blood Count 3.63 MIL/MM3 (4.50-5.90) Hemoglobin 10.6 GM/DL (13.0-17.0) Hematocrit 31.2 % (39.0-51.0) Platelet Count 83 TH/MM3 (150-450) Neutrophils (%) (Auto) 73.4 % (16.0-70.0) Monocytes (%) (Auto) 10.6 % (0.0-8.0) Lymphocytes # (Auto) 0.7 TH/MM3 (1.0-4.8) Platelet Estimate LOW (NORMAL) Ovalocytes 1+ (NORMAL) Blood Urea Nitrogen 44 MG/DL (7-18) Creatinine 9.20 MG/DL (0.60-1.30) Estimat Glomerular Filtration 6 ML/MIN (>89) Rate Random Glucose 131 MG/DL (74-106) Phosphorus Level 5.8 MG/DL (2.5-4.9) Imaging Last Impressions Upper Extremity Ultrasound 06/29/16 0000 Signed Impressions: Service Date/Time: Wednesday, June 29, 2016 10:54 - CONCLUSION: Normal examination. John Warren MD Central Venous Line 06/28/16 0927 Signed Impressions: Service Date/Time: Tuesday, June 28, 2016 09:27 - CONCLUSION: Uncomplicated Permcath removal. Garfield Caraballo MD Catheter Placement X-Ray 06/28/16 0000 Signed Impressions: Service Date/Time: Tuesday, June 28, 2016 09:32 - CONCLUSION: Uncomplicated line placement as above. Garfield Caraballo MD Carotid Artery Ultrasound 06/26/16 0000 Signed Impressions: Service Date/Time: Sunday, June 26, 2016 08:02 - CONCLUSION: Mild calcified plaque right carotid bulb. No evidence of hemodynamically significant carotid stenosis. Huseyin Wood MD PE at Discharge GENERAL: Well-nourished, well-developed middle aged male patient in [facility]. SKIN: Warm and dry. No rash. HEENT: Normocephalic. Atraumatic. Pupils equal and round. Mucous membranes pink and moist. NECK: Supple. Trachea midline. Right IJ vascath. CARDIOVASCULAR: Regular rate and rhythm. S1, S2 noted. No murmur appreciated. RESPIRATORY: No accessory muscle use. Clear to auscultation. Breath sounds equal bilaterally. GASTROINTESTINAL: Abdomen soft, non-tender, nondistended. Normoactive bowel sounds x4. MUSCULOSKELETAL: No obvious deformities. Extremities without clubbing, cyanosis , or edema. LUE AV fistula with +thrill/bruit. NEUROLOGICAL: Awake and alert. No obvious cranial nerve deficits. Motor grossly within normal limits. Normal speech. PSYCHIATRIC: Appropriate mood and affect; insight and judgment normal. Pt update on day of discharge Follow up for bacteremia, near-syncope. The patient reports some pain at the site of the right Permcath placed earlier today. Nausea improved after receiving Reglan. He tolerated his entire lunch. Otherwise he denies any new medical complaints. Hospital Course 51-year-old male with a past medical history of ESRD, diet-controlled DM, HTN, CHF, pulmonary HTN who presented for lightheadedness and hypotension following dialysis //Presyncope: on admission. Following dialysis session. Likely secondary to hypotension at the time. Carotid U/S negative for significant stenosis. Non- orthostatic. Echocardiogram showed moderate LVH, normal systolic function EF 65% , suggestion of moderate to severe pulmonary hypertension. Symptoms improved. //Suspected sepsis with Bacteremia: Banded neutrophils on admission. Hypotension on admission, and patient was on beta melvin. Blood cultures(see other visit profile) growing staph epidermidis. ID consulted, discussed with Dr. Nguyen, repeat blood cultures negative 5 days. Also removed Permcath, tip culture with no growth in 48hrs. Ultrasound of left upper extremity AVF unremarkable. Dr. Nguyen arranged for patient to receive IV Vanco with dialysis on [facility], cleared for discharge. Patient remained afebrile throughout admission. //[facility]. Patient refuses renal diet. Nephrology to follow for hemodialysis. Permcath removed by IR on 06/28, then placed vascath, now IR has replaced Permcath 07/01, sutures to be removed in 2-3 weeks. Nephrology cleared for discharge. //left arm fistula: Patient believes this is not working appropriately. Nephrology consulted. Ultrasound unremarkable as above. Patient to follow up with his vascular surgeon as scheduled on 07/21 for further evaluation of his LUE AVF. Given IV Dilaudid as needed for pain. //afib, History of CHF, History of suspected pulmonary arterial hypertension: Continue beta melvin lower dose due to hypotension. Held blood pressure medications. Continue sildenafil. Patient is not on anticoagulation. Continue amiodarone. //depression, no si, History of anxiety: Held anxiolytics in setting of hypertension on admission. Patient declines medical treatment, but does believe that he is clinically depressed. Would like to follow up with psychiatrist or counselor as outpatient. Treat thyroid as below. Temazepam for insomnia. //GERD. Chronic. Continue PPI //DM - past diagnosis of diabetes, however says that this is resolved. Patient refuses DM diet, ssi //Hypothyroidism. TSH elevated, T4 low. Resumed previous dose of levothyroxine. //Nausea and vomiting. Suspect secondary to medication side effect. Antiemetics as needed. Changed dosing of IV zofran to coincide with dilaudid. Added IV Reglan prn. Symptoms improved, patient tolerating oral intake at discharge. Given rx for Reglan at discharge. DVT Prophylaxis: heparin sq I spent 35 minutes [id number] with the patient or on the zapata discussing the patient's disposition, prognosis, and plan of care with his caregivers. Over half the time spent was devoted to counseling the patient regarding placement in coordinating care with caregivers and case management Written by Nyla Ramirez, acting as scribe for Dr. Bolaños on 07/01/16 at 14:40. This note was transcribed by scribe [Nyla Ramirez]. I, Dr. Yazan Bolaños personally performed the history, physical exam, and medical decision making; and confirmed the accuracy of the information in the transcribed note. Authenticated by Dr. Yazan Bolaños on 07/06/16 at 11:36. Pt Condition on Discharge: Stable Discharge Disposition: Discharge Home Discharge Time: > 30 minutes Discharge Instructions DIET: Follow Instructions for: Renal Failure Diet Activities you can perform: Regular-No Restrictions Follow up Referrals: Nephrology - Next Day PCP Follow-up - 1 Week with Jimbo Marie MD New Medications: Epinephrine Inj (Epinephrine Inj) 1 Mg/Ml Inj 0.3 MG IV PUSH ONCE PRN ALLERGIC REACTION #1 VIAL Epinephrine Inj (Epinephrine Inj) 1 Mg/Ml Inj 0.3 MG SQ ONCE Give with any signs of respiratory distress. PRN ALLERGIC REACTION #1 VIAL Hydrocortisone Inj (Solu-Cortef Inj) 250 Mg Inj 250 MG IV PUSH ONCE Give over 30-60 seconds. PRN ALLERGIC REACTION #1 Ref 0 VIAL Metoclopramide (Metoclopramide) 10 Mg Tab 10 MG PO Q8HR PRN nausea/vomiting #15 Ref 0 TAB Vancomycin Inj (Vancomycin Inj) 1,000 Mg Inj 1000 MG IV in dialysis T,Th,Sat Infection Days 10 Ref 0 BAG Amiodarone (Amiodarone) 200 Mg Tab 200 MG PO DAILY please followup with cardiology to adress need for this medication heart Days 30 TAB Levothyroxine (Levothyroxine) 25 Mcg Tab 25 MCG PO DAILY@0600 Hypothyroid Days 30 TAB Metoprolol Tartrate (Metoprolol Tartrate) 25 Mg Tab 50 MG PO Q12HR heart Days 30 TAB Continued Medications: Alprazolam (Xanax) 0.25 Mg Tab 0.25 MG PO DIRECTED PRN ANXIETY Ref 0 TAB Atorvastatin (Atorvastatin) 20 Mg Tab 20 MG PO HS Cholesterol Management #30 Ref 0 TAB Calcium Acetate (Phosphate Bin (Calcium Acetate) 667 Mg Cap Ondansetron Odt (Zofran Odt) 4 Mg Tab 4 MG SL Q6HR PRN Nausea/Vomiting Ref 0 TAB Oxycodone-Acetaminophen (Oxycodone-Acetaminophen) 10-325 mg Tab 1 TAB PO Q4H PRN PAIN #18 Ref 0 TAB (This prescription has been renewed) Pantoprazole (Protonix) 20 Mg Tab 20 MG PO BID Reflux Ref 0 TAB Promethazine (Phenergan) 25 Mg Tab 25 MG PO Q6H PRN Nausea/Vomiting Ref 0 TAB Sildenafil (Sildenafil) 20 Mg Tab 40 MG PO BID Pulm. arterial hypertension #90 Ref 0 TAB Discontinued Medications: Amlodipine (Amlodipine) 5 Mg Tab 5 MG PO DAILY Blood Pressure Management Ref 0 TAB Bumetanide (Bumetanide) 1 Mg Tab 1 MG PO DAILY #30 Ref 0 TAB Metoprolol Tartrate (Metoprolol Tartrate) 100 Mg Tab 100 MG PO BID #60 Ref 0 TAB Nyla Ramirez PA-C July 01, 2016 14:47 Yazan Bolaños MD July 06, 2016 11:37
[2016-07-01] MEDS ORDERED: OXYC1TAB36 PO ×2 (14:55→14:57)
[2016-07-01] MEDS ORDERED: METO10TA PO (14:58)
--- NOTE | 2016-07-01 15:16 | RADRPT ---
EXAM DATE/TIME: 07/01/2016 11:35 [place] COMPARISON: No previous studies available for comparison. INDICATIONS : Patient with renal disease in need of fpc dialysis catheter placement. Has an existing right si ded vas catheter. MEDICAL HISTORY : Atrial fibrillation with history of ablation End-stage renal disease CHF Pulmonary hypertension Anxiety Hyperlipidemia Systemic hypertension Common immune deficiency syndrome GERD Chronic lower back pain History of CVA Hypercholesterolemia Pancreatis SURGICAL HISTORY : Left fistula revision January 2016. Cardiac catheterization History of pericardial window Tonsillectomy ENCOUNTER: Subsequent ACUITY: 1 day PAIN SCORE: 6/10 LOCATION: right upper chest. FLUORO TIME: 0.9 minutes IMAGE SERIES: 0 SEDATION TIME: 45 minutes MEDICATION(S): 1.) 5 mg midazolam (Versed) IV 2.) 250 mcg Fentanyl (Sublimaze) IV 3.) 2 mg hydromorphone (Dilaudid) IV DEVICE(S): 1.) 15 FR Steinberg II Plus dialysis catheter PROCEDURE : Fluoroscopic evaluation of the existing catheter shows it to be in good position. This was exchanged over the wire for a Steinberg perm catheter. The catheter was back tunneled over the clavicle and assemb led. The tips of the catheter are at the cavoatrial junction. Good flow rates are seen involving both lumens. The catheter was flushed with the appropriate volume of 1000 unit per cc heparin. The cathet er was sutured in place using 2-0 silk suture. Conscious sedation with continuous monitoring. CONCLUSION: Vas catheter exchange for a perm catheter as detailed above. Sherwin Cummins Jr., MD on July 01, 2016 at 15:02 Board Certified Radiologist. This report was verified electronically.
[2016-07-01] MEDS ORDERED: HYDROmorphone HCL PF 1 MG/ML VIAL IV PUSH ONE (17:00)
[2016-07-01] MEDS: ACETAMINOPHEN/HYDROcodone 325 MG/10 MG TAB PO PRN (17:19)
== END 2016-07-01 17:35 | disposition home or self-care (01) | DRG 314 ==
LOC: NEDDLT 22:39 → N06B 06-26 02:03
PROVIDERS: ADMIT Internal Medicine; ATTEND Internal Medicine
PROC: 5A1D60Z (ICD-10-PCS; principal; 2016-06-28)
PROC: 05H533Z Insertion of Infusion Device into Right Subclavian Vein, Percutaneous Approach (ICD-10-PCS; 2016-06-28)
PROC: 05HM33Z Insertion of Infusion Device into Right Internal Jugular Vein, Percutaneous Approach (ICD-10-PCS; 2016-07-01)
DX: T80.211A Bloodstream infection due to central venous catheter, initial encounter (principal); A41.9 Sepsis, unspecified organism; R65.21 Severe sepsis with septic shock; D84.9 Immunodeficiency, unspecified; N18.6 End stage renal disease; I12.0 Hypertensive chronic kidney disease with stage 5 chronic kidney disease or end stage renal disease; E88.89 Other specified metabolic disorders; I27.2 Other secondary pulmonary hypertension; K59.00 Constipation, unspecified; E11.22 Type 2 diabetes mellitus with diabetic chronic kidney disease; I50.9 Heart failure, unspecified; Z99.2 Dependence on renal dialysis; Z88.0 Allergy status to penicillin; F41.9 Anxiety disorder, unspecified; E78.5 Hyperlipidemia, unspecified; K21.9 Gastro-esophageal reflux disease without esophagitis; G89.29 Other chronic pain; M54.5 Low back pain; F32.9 Major depressive disorder, single episode, unspecified; I25.10 Atherosclerotic heart disease of native coronary artery without angina pectoris; R55 Syncope and collapse; D63.1 Anemia in chronic kidney disease; E03.9 Hypothyroidism, unspecified; G47.00 Insomnia, unspecified; R11.2 Nausea with vomiting, unspecified
CPT/HCPCS: 36556; 36558; 36589; 71010; 74020; 76937; 77001; 80048; 80053; 80076; 80202; 81001; 82272; 82550; 82552; 82565; 83605; 83735; 84100; 84155; 84439; 84443; 84480; 84484; 85007; 85025; 85027; 85610; 85730; 86403; 87040; 87071; 87086; 87205; 87640; 87641; 90935; 93005; 93306; 93880; 93970; 96365; 96374; 96375; 99152; 99153; 99281; C1750; C1752; C1769; J0692; J1170; J1580; J1644; J2250; J2405; J2765; J3010; J3370; J7040; J7050; Q4081

== ENCOUNTER 2016-07-16 18:25 | Inpatient (IN) | payer MEDICARE, OTHER ==
[~2016-07-16] VITALS: Ht 182.9 cm; Wt 100.7 kg
[~2016-07-16 18:25] MED LIST changes: +AMIO200T PO; -AMLO5TAB2 PO; -BUME1TAB PO; +EPIN1INJ21 IV PUSH; +EPIN1INJ21 SQ; +LEVO25TA4 PO; -METO100T PO; +METO10TA PO; +METO25TA3 PO; +SOLU250I IV PUSH; +VANC1000P IV
[2016-07-16 19:00] VITALS: BP 130/69; PULSE 72; RESP 20; TEMP 98.2; O2SAT 93
--- NOTE | 2016-07-16 19:01 | HHI.HP ---
[facility] Service Family Medicine Primary Care Physician Jimbo Marie MD Admission Diagnosis Diagnoses: International Travel<30 Days: No Contact w/Intl Traveler<30days: No Known Affected Area: No History of Present Illness 51-year-old male with history of end-stage renal disease, common variable immunodeficiency disorder and multiple hospitalizations (mostly at [facility]) for MRSA pneumonia presents with a hospital-acquired pneumonia after being discharged earlier this month. At that time infectious disease was consulted for evaluation and management of severe sepsis. He was treated with vancomycin during hemodialysis and was discharged with care coordinated by infectious disease for hemodialysis as an outpatient during hemodialysis. This was performed per the patient. He presented to the emergency room earlier today for a 1 day history of tremors , fever, chills, cough productive of sputum. He states these are the symptoms he gets when he feels an infection coming on. He states in 2014 he was admitted 9 times for the same MRSA pneumonia. He was hospitalized at [facility] for one month in 2016. He previously followed a locomotive oiler, Dr.Rene Do for his common immune deficiency syndrome. However , he has not seen a physician since early 2015. Occasionally he will get immunoglobulin IgG therapy which provided him benefit. Review of Systems Constitutional: COMPLAINS OF: Fever, Chills Eyes: DENIES: Blurred vision, Diplopia Ears, nose, mouth, throat: DENIES: Tinnitus, Hearing loss Respiratory: COMPLAINS OF: Cough, Sputum production, Shortness of breath Cardiovascular: COMPLAINS OF: Chest pain (when coughing), DENIES: Palpitations , Syncope Gastrointestinal: COMPLAINS OF: Nausea, Vomiting, DENIES: Abdominal pain, Black stools, Constipation, Diarrhea Neurologic: DENIES: Abnormal gait, Headache Psychiatric: DENIES: Anxiety, Confusion Past Family Social History Past Medical History Atrial fibrillation with history of ablation End-stage renal disease on hemodialysis Monday to Monday CHF Pulmonary hypertension Anxiety Hyperlipidemia Systemic hypertension Common immune deficiency syndrome GERD Chronic lower back pain Past Surgical History Left fistula revision January 2016. Cardiac catheterization History of pericardial window Reported Medications Reported Meds & Active Scripts Active Amiodarone (Amiodarone HCl) 200 Mg Tab 200 Mg PO DAILY 30 Days please followup with cardiology to adress need for this medication Metoprolol Tartrate 25 Mg Tab 50 Mg PO Q12HR 30 Days Oxycodone-Acetaminophen 10-325 mg Tab 1 Tab PO Q4H PRN Reported Zofran Odt (Ondansetron Odt) 4 Mg Tab 4 Mg SL Q6HR PRN Phenergan (Promethazine HCl) 25 Mg Tab 25 Mg PO Q6H PRN Xanax (Alprazolam) 0.25 Mg Tab 0.25 Mg PO DIRECTED PRN Calcium Acetate (Calcium Acetate (Phosphate Bin) 667 Mg Cap Protonix (Pantoprazole Sodium) 20 Mg Tab 20 Mg PO BID Atorvastatin (Atorvastatin Calcium) 20 Mg Tab 20 Mg PO HS Sildenafil 20 Mg Tab 40 Mg PO BID Allergies: Coded Allergies: Albuterol (Verified Allergy, Severe, 07/16/16) violent shaking Meclizine (Verified Allergy, Severe, 07/16/16) swelling Penicillin (Verified Allergy, Severe, Rash, 07/16/16) Uncoded Allergies: plastic tape (Allergy, Severe, 06/25/16) breaks out Family History Patient was adopted Social History Nonsmoker. Nondrinker. Denies illicit drug use. Physical Exam Vital Signs Vital Signs Date Time Temp Pulse Resp B/P Pulse Ox O2 Delivery O2 Flow Rate FiO2 07/16/16 19:00 98.2 72 20 130/69 93 Physical Exam GENERAL: This is a well-nourished, well-developed patient, in no apparent distress. SKIN: Permacath right chest wall HEAD: Atraumatic. Normocephalic. No temporal or scalp tenderness. EYES: Pupils equal round and reactive. Extraocular motions intact. No scleral icterus. No injection or drainage. ENT: Nose without bleeding, purulent drainage or septal hematoma. Throat without erythema, tonsillar hypertrophy or exudate. Uvula midline. Airway patent. NECK: Trachea midline. No JVD or lymphadenopathy. Supple, nontender, no meningeal signs. CARDIOVASCULAR: Regular rate and rhythm without murmurs, gallops, or rubs. RESPIRATORY: Clear to auscultation on the left. The the right side has scattered rhonchi. GASTROINTESTINAL: Abdomen soft, non-tender, nondistended. No hepato-splenomegaly , or palpable masses. No guarding. MUSCULOSKELETAL: Extremities without clubbing, cyanosis, or edema. No joint tenderness, effusion, or edema noted. No calf tenderness. Negative Homans sign bilaterally. NEUROLOGICAL: Awake and alert. Cranial nerves II through XII intact. Motor and sensory grossly within normal limits. Five out of 5 muscle strength in all muscle groups. Normal speech. Imaging Chest x-ray 07/16: Patchy right mid lung consolidation Assessment and Plan Assessment and Plan 51-year-old male presents with hospital acquired pneumonia. He has end-stage renal disease with frequent MRSA infections. Plan as below Code Status Full Problem List: (1) MRSA pneumonia Status: Acute Plan: Infectious disease consult given comorbidities, common immune deficiency syndrome Vancomycin 1000 mg given today after dialysis Continue vancomycin 1000 mg after hemodialysis Vancomycin pharmacy consult Blood cultures pending 2 (from previous 07/16 admission in the EMR) Labs pending: Legionella urine, pneumococcal urine, sputum Pain: [place] by mouth pain 3-5, morphine 2 mg IV when necessary pain 6-10 (2) ESRD (end stage renal disease) Status: Acute Plan: Nephrology consult Dialysis Monday, , Monday (3) FEN/PPX Status: Acute Plan: Fluids: Tolerating by mouth, careful with fluids with ESRD Electrolytes: Monitor and replace as needed Nutrition: Patient requests regular diet with "double portions" at times. Refuses renal diet Prophylaxis: Heparin, SCDs Chronic medical problems: Atrial fibrillation with history of ablation: Continue home amiodarone, metoprolol Pulmonary hypertension: Continue home sildenafil Anxiety: Continue home Xanax before dialysis Hyperlipidemia: Continue home atorvastatin Common immune deficiency syndrome: Consult ID as above. Consider IgG infusion GERD: Continue Protonix Physician Certification 2 Midnight Certification Type: Admission for Inpatient Services Order for Inpatient Services The services are ordered in accordance with Medicare regulations or non- Medicare payer requirements, as applicable. In the case of services not specified as inpatient-only, they are appropriately provided as inpatient services in accordance with the 2-midnight benchmark. Estimated LOS (days): 2 days is the estimated time the patient will need to remain in the hospital, assuming treatment plan goals are met and no additional complications. Post-Hospital Plan: Not yet determined Carlos Mora MD R2 July 16, 2016 19:01
[2016-07-16] MEDS ORDERED: MAGNESIUM HYDROXIDE SUSP 30 ML CUP PO PRN (19:45)
[2016-07-16] MEDS ORDERED: ACETAMINOPHEN/HYDROcodone 325 MG/5 MG TAB PO PRN (19:45)
[2016-07-16] MEDS ORDERED: NALOXONE HCL 0.4 MG/ML AMP IV PRN ×2 (19:45)
[2016-07-16] MEDS ORDERED: Vancomycin Consult Pharmacy 1 EA OTHER SCH (19:45)
[2016-07-16] MEDS ORDERED: ALPRAZolam 0.25 MG TAB PO PRN (19:45)
[2016-07-16] MEDS ORDERED: TEMAZEPAM 15 MG CAP PO PRN (19:45)
[2016-07-16 20:30] VITALS: BP 129/69; PULSE 76; RESP 18; TEMP 99; O2SAT 98
[2016-07-16] MEDS ORDERED: VANCOMYCIN INJ 2,000 MG in SODIUM CHLORID 0.9% 500 ML INJ 500 ML IV ONE (21:00)
[2016-07-16] MEDS: ONDANSETRON HCL 4 MG/2 ML VIAL IVP PRN (21:12)
[2016-07-16] MEDS: ATORVASTATIN 20 MG TAB PO SCH (21:13)
[2016-07-16] MEDS: SILDENAFIL CITRATE 20 MG TAB PO SCH (21:13)
[2016-07-16] MEDS: PANTOPRAZOLE SOD 20 MG DELAYED RELEASE TAB PO SCH (21:13)
[2016-07-16] MEDS: HEPARIN SODIUM - SQ 10,000 UNITS/ML VIAL SQ SCH (21:14)
[2016-07-16] MEDS: METOPROLOL TARTRATE 50 MG TAB PO SCH (21:14)
[2016-07-16] MEDS: MORPHINE SULFATE 4 MG/ML INJ IV PRN (21:15)
[2016-07-16] MEDS: SODIUM CHLORIDE 0.9% FLUSH 10 ML FLUSH IV FLUSH PRN (21:22)
[2016-07-16] MEDS: SODIUM CHLORIDE 0.9% FLUSH 10 ML FLUSH IV FLUSH SCH (21:22)
[2016-07-17] VITALS (7 sets, daily range): BP systolic 99–144; BP diastolic 54–70; PULSE 74–79; RESP 16–20; TEMP 99.2–100.5; O2SAT 92–99
[2016-07-17] MEDS ORDERED: BENZONATATE 100 MG CAP PO PRN
[2016-07-17] MEDS: MORPHINE SULFATE 4 MG/ML INJ IV PRN ×8 (00:45→22:02)
[2016-07-17] MEDS: SODIUM CHLORIDE 0.9% FLUSH 10 ML FLUSH IV FLUSH PRN ×4 (00:46→22:03)
[2016-07-17] MEDS: ONDANSETRON HCL 4 MG/2 ML VIAL IVP PRN ×2 (03:50→20:35)
[2016-07-17] MEDS: ACETAMINOPHEN 325 MG TAB PO PRN ×2 (05:17→12:54)
[2016-07-17 07:35] LABS: AUTOMATED NEUTROPHIL # 3.8 TH/MM3 (1.8-7.7); BASOPHIL % 0.5 % (0.0-2.0); EOSINOPHIL # 0.2 TH/MM3 (0-0.4); EOSINOPHIL % 3.2 % (0.0-4.0); HEMATOCRIT 27.3 % (39.0-51.0); LYMPH % 8.2 % (9.0-44.0); LYMPHOCYTE # 0.4 TH/MM3 (1.0-4.8); MEAN CORPUSCULAR HEMOGLOBIN 29.3 PG (27.0-34.0); MEAN CORPUSCULAR HGB CONC 33.3 % (32.0-36.0); MONO % 11.3 % (0.0-8.0); NEUT % 76.8 % (16.0-70.0); PLATELET COUNT 78 TH/MM3 (150-450); RED CELL DISTRIBUTION WIDTH 16.7 % (11.6-17.2)
[2016-07-17 07:38] LABS: HEMO FLAGS AUTO DIFF
[2016-07-17 08:13] LABS: ALKALINE PHOSPHATASE 69 U/L (45-117); ALT (GPT) 19 U/L (12-78); ANION GAP 14 MEQ/L (5-15); AST (GOT) 16 U/L (15-37); BICARBONATE 22.7 MEQ/L (21.0-32.0); BLOOD UREA NITROGEN 53 MG/DL (7-18); CHLORIDE 101 MEQ/L (98-107); GLOMERULAR FILTRATION RATE 6 ML/MIN (>89); POTASSIUM 4.9 MEQ/L (3.5-5.1); SODIUM (NA) 138 MEQ/L (136-145); TOTAL BILIRUBIN ADULT 0.5 MG/DL (0.2-1.0)
[2016-07-17] MEDS: HEPARIN SODIUM - SQ 10,000 UNITS/ML VIAL SQ SCH ×2 (09:15→20:40)
[2016-07-17] MEDS: PANTOPRAZOLE SOD 20 MG DELAYED RELEASE TAB PO SCH ×2 (09:15→20:36)
[2016-07-17] MEDS: AMIODARONE 200 MG TAB PO SCH (09:15)
[2016-07-17] MEDS: SODIUM CHLORIDE 0.9% FLUSH 10 ML FLUSH IV FLUSH SCH ×2 (09:16→20:35)
--- NOTE | 2016-07-17 09:16 | HHI.FPPN ---
Subjective Remarks Fede Lacy is a 51yo gentleman with ESRD on dialysis, Common variable immunodeficiency, and MRSA pneumonia admitted for health care associated pneumonia. He presented to the ER yesterday after a 1 day history of fevers, chills, and productive cough. For further details, please see resident h&P. This morning, he reports feeling about the same as at admission. He continue to have a productive cough. Tmax 100.5 early this morning. He maintained his O2 sats overnight on room air. He reports having sutures in place at Left AV fistula site and right chest (vascath) for 2-3 weeks. ROS: +Fever, + chills, + cough, + wheeze. + SOB. All other systems reviewed are negative. PMH/PSxH/SocHx/FamHx: Per resident H&P. ESRD on dialysis, Common Variable Immunodeficiency, MRSA pneumonia. H/O CHF, pulmonary HTN, HTN, hyperlipidemia, Afib s/p ablation. Left AV fistula, revision 01/2016. Cardiac cath and pericardial window. Adopted - family history unknown. No tobacco use, no alcohol use, no recreational drug use. Objective Vitals Vital Signs Date Time Temp Pulse Resp B/P Pulse Ox O2 Delivery O2 Flow Rate FiO2 07/17/16 03:44 100.5 75 16 110/56 98 07/17/16 00:57 100.0 75 18 144/70 92 07/17/16 00:42 102/64 07/16/16 21:15 Room Air 07/16/16 20:30 99.0 76 18 129/69 98 07/16/16 19:00 98.2 72 20 130/69 93 Result Diagram: 07/17/16 0610 07/17/16 0610 Objective Remarks GENERAL: in NAD, no resp distress, nontoxic. Talks in complete sentences. HEENT: NCAt, EOMI, no scleral icterus, no conjunctival injection. MMM. Wearing glasses. No nasal flaring. NECK: Supple, no meningeal signs. CV: RRR, S1 S2. No murmurs. CHEST/PULM: + end exp wheeze throughout. No crackles. Vascath at R anterior chest. ABD/GI: +BS, soft, nontender, nondistended. Obese. EXT: 1+ DP pulses; no calf tenderness. No edema. Left AV fistula. NEURO: Awake, alert. Normal muscle tone. Grossly nonfocal. SKIN: No rashes, no jaundice. Suture at Left AV fistula. Suture at Right anterior chest - vas cath site. PSYCH: Mood and affect are appropriate. Speech fluent. Does not appear to respond to internal stimuli. A/P Assessment and Plan 51-year-old male presents with health care associated pneumonia with known h/o MRSA pneumonia . Attending Attestation The patient has been seen and examined. The chart and all resident notes have been reviewed. I agree that inpatient care is appropriate and that a two midnight stay is expected for the reasons documented in the resident history and physical. I have discussed this with the resident and certify the resident s order for inpatient admission. Patient seen, examined, and discussed with resident team. Problem List: (1) MRSA pneumonia Status: Acute Plan: Appreciate ID; await recs. Continue vancomycin as ordered; to be arraged around dialysis. 07/16/16 --> Blood cultures pending 2 (from previous 07/16 admission in the EMR) Labs pending: Legionella urine, pneumococcal urine, sputum culture Add acapella, incentive spirometer Nebulizers PRN for wheeze (2) ESRD (end stage renal disease) Status: Chronic Plan: Nephrology consult Dialysis Monday, , Monday (3) Pulmonary hypertension Status: Chronic Plan: Continue home medication. (4) CAD (coronary artery disease) Status: Chronic Plan: Asymptomatic. Check EKG. Continue home medications. (5) Hypertension Status: Chronic Plan: Continue home medications. Monitor BP. (6) Anemia in chronic kidney disease (CKD) Status: Chronic Plan: Hemoglobin at baseline. No active bleeding. (7) Thrombocytopenia Status: Chronic Plan: Platelet count at baseline. No obvious active bleeding. No further intervention at this time. (8) A-fib Status: Chronic Plan: On Amiodarone. If worsening SOB, consider d/c of amiodarone as it may contribute to decreased lung function. Pt is currently not on anticoagulation, except for heparin SQ Q12. Will need to determine need for anticoagulation at discharge Currently in sinus rhythm. Gaye Manriquez MD July 17, 2016 09:16 Pain: [place] by mouth pain 3-5, morphine 2 mg IV when necessary pain 6-10 (2) ESRD (end stage renal disease) Status: Acute Plan: Nephrology consult Dialysis Monday, , Monday (3) FEN/PPX Status: Acute Plan: Fluids: Tolerating by mouth, careful with fluids with ESRD Electrolytes: Monitor and replace as needed Nutrition: Patient requests regular diet with "double portions" at times. Refuses renal diet Prophylaxis: Heparin, SCDs Chronic medical problems: Atrial fibrillation with history of ablation: Continue home amiodarone, metoprolol Pulmonary hypertension: Continue home sildenafil Anxiety: Continue home Xanax before dialysis Hyperlipidemia: Continue home atorvastatin Common immune deficiency syndrome: Consult ID as above. Consider IgG infusion GERD: Continue Protonix Gaye Manriquez MD July 17, 2016 09:16
[2016-07-17] MEDS: METOPROLOL TARTRATE 50 MG TAB PO SCH ×2 (09:21→20:38)
[2016-07-17] MEDS: SILDENAFIL CITRATE 20 MG TAB PO SCH ×2 (09:22→20:37)
[2016-07-17] MEDS ORDERED: RESP: ALBUTEROL 2.5 MG/3 ML NEB (PRN) NEB (09:45)
[2016-07-17 10:24] LABS: OVALOCYTES 1+ (NORMAL); PLATELET ESTIMATE SMEAR LOW (NORMAL); PLATELET MORPHOLOGY NORMAL (NORMAL); SCAN/DIFF AUTO DIFF CONFIRMED; TEARDROP RBCS 1+ (NORMAL)
--- NOTE | 2016-07-17 11:42 | PD.CONS ---
History of Present Illness Service Infectious disease Consult Requested By Dr Mora, Dr Aries Manriquez Reason for Consult Evaluate patient with pneumonia, CVID, prior history of MRSA pneumonia Primary Care Physician Jimbo Marie MD Diagnoses: History of Present Illness Patient seen and examined. Records reviewed. Patient is a 51-year-old male, presented to the hospital initially at the [facility] emergency room, complaining of one-day history of fever and chills, as well as cough productive of some light yellowish phlegm. He was having a lot of coughing episodes. From the [facility] ER, patient was transferred to the [facility] hospital for further evaluation and treatment. Had some shortness of breath, but denies any chest pain. Patient was hospitalized here is discharged early part of June. During that time he was discharged on IV antibiotics for staph epi bacteremia. He was getting IV antibiotic during his hemodialysis and he completed the treatment around July 12. According to the patient about 4 days after he was discharged she ended up being admitted at [facility] for some symptoms of nausea and vomiting. He was in the hospital for about 4 days, and they could not really find any significant explanation for his symptomatology. Patient states that this was probably the start of his pneumonia. Current to the patient he has had previous history of MRSA pneumonia, and back in 2014 he stated he think he had about 9 episodes. His last episode of pneumonia was back in December of January of last year. 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 Patient stated that he was told that his immune globulin levels were normal, and he has not had any follow-up with his remelt sugar boiler, or has had any check of his immunoglobulin levels. At the time my exam, patient has had some low-grade fevers. He was coughing up a lot has not had any nausea or vomiting. Denies any diarrhea. Patient still has urine output but denies any urinary complaints. He gets hemodialysis every Monday and Monday, and he got dialyzed yesterday but only for about 45 minutes which is short for his usual dialysis sessions. Infectious disease consultation has been requested to evaluate the patient. Review of Systems Constitutional: COMPLAINS OF: Fever, Chills Eyes: DENIES: Eye pain Ears, nose, mouth, throat: DENIES: Nasal discharge, Oral lesions, Throat pain, Ear Pain, Running Nose, Sinus Pain Respiratory: COMPLAINS OF: Cough, Wheezing, Sputum production, DENIES: Hemoptysis, Shortness of breath Cardiovascular: COMPLAINS OF: Dyspnea on Exertion, DENIES: Chest pain, Palpitations, Syncope Gastrointestinal: DENIES: Abdominal pain, Diarrhea, Nausea, Vomiting, Difficulty Swallowing Genitourinary: DENIES: Hematuria, Dysuria Musculoskeletal: COMPLAINS OF: Muscle aches, DENIES: Joint pain, Joint Swelling Integumentary: DENIES: Rash Neurologic: DENIES: Headache, Localized weakness Psychiatric: DENIES: Confusion, Hallucinations Past Family Social History Allergies: Coded Allergies: Albuterol (Verified Allergy, Severe, 07/16/16) violent shaking Meclizine (Verified Allergy, Severe, 07/16/16) swelling Penicillin (Verified Allergy, Severe, Rash, 07/16/16) Uncoded Allergies: plastic tape (Allergy, Severe, 06/25/16) breaks out Past Medical History CAD, and previous MS History of A. fib with ablation ESRD, on hemodialysis Monday and Monday CHF Pulmonary hypertension Anxiety Hyperlipidemia Hypertension Common immune deficiency syndrome GERD Chronic low back pain Recurrent MRSA pneumonia and recent treatment for staph epi bacteremia Past Surgical History Left upper extremity AV fistula, had revision January 2016 Cardiac catheterization History of pericardial window Active Ordered Medications Tylenol Tylenol with Codeine [place] Albuterol Xanax Cordarone Lipitor [place]alon Heparin MOM Lopressor Morphine Zofran Protonix Phenergan Sildenafil Restoril IV Vanco 1 dose yesterday Social History Denies smoking Denies alcohol abuse Denies illicit drug use Physical Exam Vital Signs Vital Signs Date Time Temp Pulse Resp B/P Pulse Ox O2 Delivery O2 Flow Rate FiO2 07/17/16 09:41 Room Air 07/17/16 08:00 99.2 74 20 99/54 93 07/17/16 03:44 100.5 75 16 110/56 98 07/17/16 00:57 100.0 75 18 144/70 92 07/17/16 00:42 102/64 07/16/16 21:15 Room Air 07/16/16 20:30 99.0 76 18 129/69 98 07/16/16 19:00 98.2 72 20 130/69 93 Physical Exam GENERAL: Patient is a well-nourished, well-developedn CM, awake and alert, not in respiratory distress. SKIN: Warm and dry. No generalized rash, no ecchymoses and no evidence of embolic lesions. HEAD: Atraumatic. Normocephalic. No temporal wasting, or tenderness. EYES: [place] conjunctiva. No petechia or hemorrhage. Pupils equal, round and reactive to light. Extraocular movements full and intact. No scleral icterus. No injection or drainage. EARS, NOSE AND THROAT: Nose without bleeding or purulent nasal discharge. No sinus tenderness. Mucous membranes pink and moist. No oral lesions noted. No exudate. No oral thrush. NECK: Trachea midline. Supple and not tender, no meningeal signs CARDIOVASCULAR: Regular rate and rhythm. No murmurs, rubs or gallops heard RESPIRATORY: Breath sounds equal bilaterally. Has scattered wheezing. Decreased breath sounds at the bases. ABDOMEN: Soft, non-tender, nondistended. Bowel sounds present and normoactive. No guarding. No rebound. No organomegaly. Healed incision. EXTREMITIES: No clubbing, cyanosis, or edema. No joint effusion, has good ROM. No calf tenderness. Well perfused and warm. LUE AVF looks ok NEUROLOGICAL: Awake and alert. Cranial nerves grossly intact. Motor grossly within normal limits. PSYCHIATRIC: Normal affect, calm and cooperative. LINE: Permacath RIJ with no evidence of infection Laboratory Laboratory Tests Test 07/17/16 06:10 White Blood Count 5.0 Red Blood Count 3.10 Hemoglobin 9.1 Hematocrit 27.3 Mean Corpuscular Volume 88.0 Mean Corpuscular Hemoglobin 29.3 Mean Corpuscular Hemoglobin 33.3 Concent Red Cell Distribution Width 16.7 Platelet Count 78 Mean Platelet Volume 8.3 Neutrophils (%) (Auto) 76.8 Lymphocytes (%) (Auto) 8.2 Monocytes (%) (Auto) 11.3 Eosinophils (%) (Auto) 3.2 Basophils (%) (Auto) 0.5 Neutrophils # (Auto) 3.8 Lymphocytes # (Auto) 0.4 Monocytes # (Auto) 0.6 Eosinophils # (Auto) 0.2 Basophils # (Auto) 0.0 CBC Comment AUTO DIFF Differential Comment AUTO DIFF CONFIRMED Platelet Estimate LOW Platelet Morphology Comment NORMAL Tear Drop Cells 1+ Ovalocytes 1+ Sodium Level 138 Potassium Level 4.9 Chloride Level 101 Carbon Dioxide Level 22.7 Anion Gap 14 Blood Urea Nitrogen 53 Creatinine 10.00 Estimat Glomerular Filtration 6 Rate Random Glucose 126 Calcium Level 7.7 Total Bilirubin 0.5 Aspartate Amino Transf 16 (AST/SGOT) Alanine Aminotransferase 19 (ALT/SGPT) Alkaline Phosphatase 69 Total Protein 6.3 Albumin 3.3 Random Vancomycin Level 64.9 Date/Time Procedure Status Source Growth 07/16/16 21:42 Cancelled Sputum Expectorated Sputum Result Diagram: 07/17/16 0610 07/17/16 0610 Imaging 07/16 CXR with R mid lung consolidation Assessment and Plan Assessment and Plan IMPRESSION Sepsis on admission, due to CAP Has known CVID Previous Hx MRSA PNA ESRD on HD Recent Rx for Staph epi bacteremia COPD by Hx Thrombocytopenia RECOMMENDATION Check legio and Pneumo Ag Check influenza Ag Follow C/S - adjust Abx once C/S available Check DIC screen Check Ig levels - has not been checked for a while Continue IV vanco - will give with HD Add levaquin Monitor temps Monitor progress Will determine course of Abx once work-up completed I will follow along with you Thank you for this consultation Discussed Condition With Explained plan to patient Priya Garcia MD July 17, 2016 11:42
[2016-07-17] MEDS ORDERED: NITROGLYCERIN 0.4 MG SL 25 TABS/BTL SL PRN (12:30)
[2016-07-17] MEDS ORDERED: MANNITOL 12.5 GM/50 ML VIAL IV PRN (12:30)
[2016-07-17] MEDS ORDERED: ALBUMIN HUMAN 25% 25 GM/100 ML BAGP IV PRN (12:30)
[2016-07-17] MEDS ORDERED: SODIUM CHLOR 0.9% 1000 ML INJ 1,000 ML IV PRN ×3 (12:30)
[2016-07-17] MEDS ORDERED: HEPARIN SODIUM - IV 10,000 UNITS/10 ML VIAL IVF PRN (12:30)
[2016-07-17] MEDS ORDERED: GELATIN 12 MM/7 MM FOAM TOP PRN (12:30)
[2016-07-17] MEDS ORDERED: cloNIDine HCL 0.1 MG TAB PO PRN (12:30)
[2016-07-17] MEDS ORDERED: ACETAMINOPHEN 325 MG TAB PO PRN (12:30)
[2016-07-17] MEDS ORDERED: SODIUM CHLORIDE 0.9% FLUSH 10 ML FLUSH IV FLUSH PRN (12:30)
[2016-07-17] MEDS: LEVOFLOXACIN 250 MG TAB PO SCH (12:49)
[2016-07-17] MEDS: CALCIUM ACETATE 667 MG CAP PO SCH ×2 (12:49→17:18)
[2016-07-17 13:05] LABS: IMMUNOGLOBULIN A 183 MG/DL (93-514)
--- NOTE | 2016-07-17 13:06 | MB ---
cc: NAKITA WILLSON MD DATE OF CONSULTATION: 07/17/2016. REASON FOR CONSULTATION: End-stage renal disease on hemodialysis for management. HISTORY OF PRESENT ILLNESS: This is a 51-year-old male with past medical history of hypertension, ischemic heart disease, atrial fibrillation, hyperlipidemia, gastroesophageal reflux disease (GERD), end-stage renal disease on hemodialysis three times per week who came to the hospital because of cough and sputum. I was called to see the patient for management of hemodialysis. He has been going [facility] in [place] and following with Dr. Ronan Khalil. He has been on hemodialysis Monday, and Monday. He went there yesterday for dialysis and 45 minutes into dialysis, he started having shaking and they sent him to the emergency department of [facility] in that area and from there he was transferred here for admission. The patient was recently discharged from here. At that time, he was admitted for a syncopal episode. The patient has had multiple pneumonia in the past including MRSA infection and had been seen infectious disease right now and he is on Levaquin and vancomycin with dialysis. He received a Vancomycin yesterday twice, one was 2 grams and one was 1 gram. The patient is still feeling weak and tired. He has a low-grade fever. He has a cough with whitish to yellowish sputum. There is no chest pain. No palpitations. He occasionally has chills. He has an AV fistula in the left arm, which is not working well and has a Permacath on the right side. He denies any nausea or vomiting. No abdominal pain. He has mild shortness of breath on exertion. PAST MEDICAL HISTORY: 1. Hypertension. 2. Ischemic heart disease. 3. Atrial fibrillation. 4. Hyperlipidemia. 5. Gastroesophageal reflux disease (GERD). 6. Congestive heart failure. 7. End-stage renal disease on hemodialysis. PAST SURGICAL HISTORY: 1. Left AV fistula surgery done multiple times. 2. Cardiac catheterization. 3. Pericardial window. 4. Multiple Permacaths. REVIEW OF SYSTEMS: There is low-grade fever. He has generalized weakness. He is feeling tired. Sometimes he has chills. He has shortness of breath with exertion. Cough with whitish to yellowish sputum. No chest pain. No palpitations. No nausea or vomiting. No abdominal pain. No history of diarrhea. SOCIAL HISTORY: The patient is single. There is no history of smoking. FAMILY HISTORY: The family history is not known since he was adopted. ALLERGIES: 1. ALBUTEROL. 2. MECLIZINE. 3. PENICILLIN. MEDICATIONS: Currently he is on the following medications: 1. Protonix 20 milligrams twice a day. 2. Revatio 40 milligrams twice a day. 3. Cordarone 200 milligrams once a day. 4. Levaquin 250 milligrams daily. 5. Vancomycin 1 gram with dialysis. 6. Lipitor 20 milligrams at bedtime. 7. Heparin 5000 units subcutaneous q. 12 hours. 8. Metoprolol 50 milligrams q. 12 hours. 9. Zofran as needed. 10. as needed. PHYSICAL EXAMINATION: GENERAL: On examination, the patient is awake and alert and he is not in acute distress. VITAL SIGNS: His last blood pressure is 99/51, temperature is 99.2 with T-max of 100.5. Oxygen saturation on room air is 93% to 98%. HEAD, EYES, EARS, NOSE, THROAT: The pupils are equal and reacting to light. Nonicteric sclerae. Conjunctivae are pale. NECK: The neck is supple. JVD is not elevated. LUNGS: The patient has bilateral decreased air entry with scattered wheezing and basal rales. HEART: S1 and S2 irregular rhythm. ABDOMEN: Abdomen soft, lax, distended. There is no tenderness. Bowel sounds positive. EXTREMITIES: There is no pedal edema. Left arm has an AV fistula with no bruits. INVESTIGATIONS: White blood cell count is 5.0, hemoglobin 9.1, platelet count of 72,000, neutrophils 76.8%. Sodium 138, potassium 4.9, chloride 101, bicarbonate 22.7, BUN 53, creatinine 10, calcium is 7.7. AST and ALT are normal. Total protein is 6.3 with albumin of 3.3. INR is 1.0. Urinalysis showing protein of 30 and this was done during the last admission. Blood cultures were done and are pending. IMAGING STUDIES: The patient had a chest x-ray done yesterday which shows that the patient has patchy right mid-lung consolidation. ASSESSMENT AND PLAN: 1. Pneumonia. 2. End-stage renal disease on hemodialysis. 3. Atrial fibrillation 4. Congestive heart failure 5. Anemia. The patient has been on hemodialysis Monday, and Monday. He is currently on vancomycin and Levaquin as per infectious disease. His regular hemodialysis days are Monday, , Monday but yesterday he only had 45 minutes of dialysis of dialysis, so will dialyze him again tomorrow and then put him back on his regular schedule. Vancomycin to be given with the dialysis. He was on PhosLo at home, so I will put him back on PhosLo and follow his phosphorus level. Thank you for the consultation. I will follow the patient while he is in the hospital. MD LIUDMILA Moses/PORFIRIO /12:27 PM /12:41 PM
[2016-07-17 13:17] LABS: IMMUNOGLOBULIN G 678 MG/DL (660-1640); IMMUNOGLOBULIN M 129 MG/DL (40-247)
[2016-07-17] MEDS: ACETAMINOPHEN/CODEINE ELIX 120 MG/12 MG/5 ML CUP PO PRN ×2 (14:38→22:01)
[2016-07-17] MEDS: ATORVASTATIN 20 MG TAB PO SCH (20:36)
[2016-07-18] VITALS (7 sets, daily range): BP systolic 97–150; BP diastolic 52–72; PULSE 75–92; RESP 16–20; TEMP 98.5–99.9; O2SAT 94–100
[2016-07-18] MEDS: ONDANSETRON HCL 4 MG/2 ML VIAL IVP PRN ×2 (03:33→18:02)
[2016-07-18] MEDS: MORPHINE SULFATE 4 MG/ML INJ IV PRN ×6 (03:33→20:56)
[2016-07-18] MEDS: SODIUM CHLORIDE 0.9% FLUSH 10 ML FLUSH IV FLUSH PRN ×2 (03:34→06:36)
[2016-07-18] MEDS: ACETAMINOPHEN/CODEINE ELIX 120 MG/12 MG/5 ML CUP PO PRN ×3 (03:34→20:45)
[2016-07-18 07:52] LABS: AUTOMATED NEUTROPHIL # 3.1 TH/MM3 (1.8-7.7); BASOPHIL % 0.7 % (0.0-2.0); EOSINOPHIL # 0.1 TH/MM3 (0-0.4); EOSINOPHIL % 3.2 % (0.0-4.0); LYMPHOCYTE # 0.6 TH/MM3 (1.0-4.8); MEAN CELL VOLUME 87.8 FL (80.0-100.0); MEAN CORPUSCULAR HEMOGLOBIN 28.7 PG (27.0-34.0); MEAN CORPUSCULAR HGB CONC 32.7 % (32.0-36.0); MONO % 16.9 % (0.0-8.0); NEUT % 66.2 % (16.0-70.0); PLATELET COUNT 69 TH/MM3 (150-450); RED BLOOD COUNT 3.07 MIL/MM3 (4.50-5.90); RED CELL DISTRIBUTION WIDTH 16.3 % (11.6-17.2); WHITE BLOOD COUNT 4.7 TH/MM3 (4.0-11.0)
[2016-07-18] MEDS: HEPARIN SODIUM - SQ 10,000 UNITS/ML VIAL SQ SCH ×2 (08:00→20:43)
[2016-07-18 08:03] LABS: HEMO FLAGS AUTO DIFF
[2016-07-18 08:15] LABS: BICARBONATE 22.7 MEQ/L (21.0-32.0); POTASSIUM 5.5 MEQ/L (3.5-5.1)
[2016-07-18 08:52] LABS: OVALOCYTES 1+ (NORMAL); PLATELET ESTIMATE SMEAR LOW (NORMAL); PLATELET MORPHOLOGY NORMAL (NORMAL); SCAN/DIFF AUTO DIFF CONFIRMED; TEARDROP RBCS 1+ (NORMAL)
--- NOTE | 2016-07-18 08:55 | HHI.FPPN ---
Subjective Remarks No acute events overnight. Tmax 100.3F over past 24 hours. Vitals are stable, remains on room air. Patient states he still has a cough, it is only slightly improved from yesterday, sometimes productive of white sputum. Denies fevers. Ambulating within room. He states he was able to produce a small amount of urine recently. Denies difficulty breathing. (Phil Warren MD R1) Objective Vitals Vital Signs Date Time Temp Pulse Resp B/P Pulse Ox O2 Delivery O2 Flow Rate FiO2 07/18/16 08:08 94 21 07/18/16 08:00 98.7 83 16 143/69 100 07/18/16 04:00 99.4 85 20 140/67 98 07/18/16 00:30 Room Air 07/18/16 00:00 99.9 81 20 137/68 95 07/17/16 20:30 Room Air 07/17/16 20:00 99.4 79 20 119/65 99 07/17/16 16:00 99.2 77 20 111/59 93 07/17/16 12:00 100.3 78 20 108/56 92 07/17/16 09:41 Room Air I/O 07/17/16 07/17/16 07/17/16 07/18/16 07/18/16 07/18/16 07:00 15:00 23:00 07:00 15:00 23:00 Intake Total 120 ml 480 ml 240 ml Balance 120 ml 480 ml 240 ml Intake Oral 120 ml 480 ml 240 ml # Voids 0 # Bowel Movements 0 (Phil Warren MD R1) Result Diagram: 07/18/16 0615 07/18/16 0615 Objective Remarks GENERAL: in NAD, no resp distress, nontoxic. Talks in complete sentences. HEENT: NCAt, EOMI, no scleral icterus, no conjunctival injection. MMM. No nasal flaring. NECK: Supple, no meningeal signs. CV: RRR, S1 S2. No murmurs. CHEST/PULM: BS equal b/l. + end exp wheeze throughout. No crackles. Vascath at R anterior chest. ABD/GI: +BS, soft, nontender, nondistended. Obese. EXT: 1+ DP pulses; no calf tenderness. No edema. Left AV fistula. NEURO: Awake, alert. Normal muscle tone. Grossly nonfocal. SKIN: No rashes, no jaundice. PSYCH: Mood and affect are appropriate. Speech fluent. Does not appear to respond to internal stimuli. (Phil Warren MD R1) A/P Assessment and Plan 51-year-old male with CVID, ESRD on HD T/ presented meeting sepsis criteria due to community-acquired pneumonia, patient has a h/o MRSA pneumonia . Discharge Planning Anticipate discharge in 1-2 days pending clinical improvement (Phil Warren MD R1) Attending Attestation Patient seen and examined, discussed with resident team. I agree with assessment and management as documented and discussed with me. Pt reports feeling about the same. He says his cough is still bothersome. He is seen in dialysis. He reports a h/o Hepatitis B, in 1993, with no further problems since. He consents for HIV testing and for Hep B viral load / hepatitis profile. If significant hepatitis or if HIV, this may contribute to immune compromise (in addition to known immunodeficiency). (Gaye Manriquez MD) Problem List: (1) MRSA pneumonia Status: Acute Plan: ID consulted, appreciate recommendations Continue vancomycin as ordered; to be arranged around dialysis. 07/16/16 --> Continue Levaquin 250 mg by mouth daily, length of course to be determined by ID Blood cultures from 07/16 no growth after 2 days Legionella urine presumptive negative pneumococcal urine presumptive negative sputum culture 07/17 heavy growth of normal respiratory rickie acapella, incentive spirometer Nebulizers PRN for wheezing (2) ESRD (end stage renal disease) Status: Chronic Plan: Nephrology consult Went for dialysis today per nephrology Continue normal schedule of Dialysis Monday, , Monday (3) Pulmonary hypertension Status: Chronic Plan: Continue home medication sildenafil 40 mg by mouth twice a day (4) CAD (coronary artery disease) Status: Chronic Plan: Asymptomatic. EKG in sinus rhythm, with first-degree AV block Continue home medications. (5) Hypertension Status: Chronic Plan: Continue home medications. Monitor BP. (6) Anemia in chronic kidney disease (CKD) Status: Chronic Plan: Hemoglobin at baseline, continue to monitor No active bleeding. (7) Thrombocytopenia Status: Chronic Plan: Platelet count at baseline. No obvious active bleeding. No further intervention at this time. Continue to monitor (8) A-fib Status: Chronic Plan: On Amiodarone. If worsening SOB, consider d/c of amiodarone as it may contribute to decreased lung function. Pt is currently not on anticoagulation, except for heparin SQ Q12. Will need to determine need for anticoagulation at discharge Currently in sinus rhythm. Fluids not indicated, per by mouth Monitor electrolytes, continue dialysis Regular diet at patient request GI prophylaxis with Protonix 20 mg by mouth twice a day DVT prophylaxis with heparin 5000 units subcutaneous every 12 hours (Phil Warren MD R1) Problem Qualifiers (1) Hypertension: Qualified Code: I10 - Essential hypertension Phil Warren MD R1 July 18, 2016 08:55 Gaye Manriquez MD July 19, 2016 06:45
[2016-07-18] MEDS: LEVOFLOXACIN 250 MG TAB PO SCH (09:00)
[2016-07-18] MEDS: CALCIUM ACETATE 667 MG CAP PO SCH ×3 (09:00→18:00)
[2016-07-18] MEDS: SILDENAFIL CITRATE 20 MG TAB PO SCH ×2 (09:00→14:06)
[2016-07-18] MEDS: SODIUM CHLORIDE 0.9% FLUSH 10 ML FLUSH IV FLUSH SCH ×2 (09:00→20:46)
[2016-07-18] MEDS: METOPROLOL TARTRATE 50 MG TAB PO SCH ×2 (09:00→14:05)
[2016-07-18] MEDS: PANTOPRAZOLE SOD 20 MG DELAYED RELEASE TAB PO SCH ×2 (09:00→14:05)
[2016-07-18] MEDS: AMIODARONE 200 MG TAB PO SCH ×2 (09:00→14:06)
[2016-07-18] MEDS: ONDANSETRON HCL 4 MG/2 ML VIAL IV PRN ×2 (09:11→23:55)
[2016-07-18] MEDS: EPOETIN ALFA 10,000 UNITS/ML VIAL IV PRN (09:29)
[2016-07-18] MEDS: diphenhydrAMINE HCL 25 MG CAP PO PRN (09:29)
--- NOTE | 2016-07-18 10:52 | HHI.NPPN ---
Subjective History of Present Illness 51-year-old male with past medical history of hypertension, ischemic heart disease, atrial fibrillation, hyperlipidemia, gastroesophageal reflux disease (GERD), end-stage renal disease on hemodialysis three times per week who came to the hospital because of cough and sputum. I was called to see the patient for management of hemodialysis. He has been going [facility] in [place] and following with Dr. Ronan Khalil. He has been on hemodialysis Monday, and Monday. Additional Remarks Patient now on HD, still has cough and sputum, no chest pain. Review of Systems General Constitutional: Fatigue Respiratory Lungs: SOB, Cough, Wheeze Cardiovascular Cardiac: Edema, WYLIE Objective Data Data 07/17/16 07/18/16 19:00 07:00 Intake Total 120 ml 720 ml Balance 120 ml 720 ml Intake Oral 120 ml 720 ml # Voids 0 # Bowel Movements 0 Vital Signs Date Time Temp Pulse Resp B/P Pulse Ox O2 Delivery O2 Flow Rate FiO2 07/18/16 08:08 94 21 07/18/16 08:00 96 Blow By 07/18/16 08:00 98.7 83 16 143/69 100 07/18/16 04:00 99.4 85 20 140/67 98 07/18/16 00:30 Room Air 07/18/16 00:00 99.9 81 20 137/68 95 07/17/16 20:30 Room Air 07/17/16 20:00 99.4 79 20 119/65 99 07/17/16 16:00 99.2 77 20 111/59 93 07/17/16 12:00 100.3 78 20 108/56 92 -: 07/18/16 0615 07/18/16 0615 Microbiology 07/17/16 Gram Stain - Final, Resulted 07/17/16 Sputum Culture, Resulted Pending 07/17/16 Legionella Antigen - Final, Complete PRESUMPTIVE NEGATIVE FOR LEGIONELLA P... 07/17/16 Streptococcus pneumoniae Antigen (M - Final, Complete PRESUMPTIVE NEGATIVE FOR STREPTOCOCCU... Physical Exam General Appearance: Well Nourished, No Acute Distress, Comfortable Eyes Eye Exam: Pupils Equal Throat Throat Exam: Oral Mucosa [employer] & Moist Neck Neck Exam: Neck Supple Pulmonary Resp Exam: Crackles, Rhonchi, Sputum, Decreased Bases, Diminished Breath Sounds Cardiology CV Exam: Regular, Normal Sinus Rhythm Gastrointestinal/Abdomen GI Exam: Soft, Non-Tender, Bowel Sounds Present, Non-Distended Extremeties Extremities Exam: Trace Edema Neurologic Neuro Exam: Alert, Awake, Oriented Psychiatric Psych Exam: Appropriate Responses Assessment/Plan Assessment Summary: Hypertension, End Stage Renal Disease Problem List: (1) Anemia (2) CAD (coronary artery disease) (3) Anemia in chronic kidney disease (CKD) (4) Hypertension (5) Thrombocytopenia (6) ESRD (end stage renal disease) (7) Pneumonia Plan Patient is now on HD. Removing 3.5 liters, and tolerating well. His regular days are TTS, but he did not had complete HD on Sat. HD now and then tomorrow to put back on his regular schedule. ID following, continue antibiotics and follow the cultures. Problem Qualifiers (1) Hypertension: Qualified Code: I10 - Essential hypertension Yasmine Gross MD July 18, 2016 10:52
[2016-07-18] MEDS: HEPARIN SODIUM - IV 10,000 UNITS/10 ML VIAL PRN (12:09)
[2016-07-18] MEDS: GENTAMICIN SULFATE (DIALYSIS USE ONLY) 20 MG/2 ML VIAL IV PRN (12:09)
--- NOTE | 2016-07-18 13:17 | EKG ---
Date Performed: 07/17/2016 Time Performed: 13:38:44 PTAGE: 51 years EKG: Sinus rhythm WITH FIRST DEGREE AV BLOCK INDETERMINATE AXIS PATTERN CONSISTENT WITH PULMONARY DISEASE ABNORMAL ECG Compared to prior tracing no significant change PREVIOUS TRACING : 06/26/2016 08.47 DOCTOR: Conrad Garcia Interpretating Date/Time 07/18/2016 13:14:59
[2016-07-18] MEDS: ATORVASTATIN 20 MG TAB PO SCH (20:44)
[2016-07-18] MEDS: PROMETHAZINE HCL 25 MG TAB PO PRN (22:56)
[2016-07-19] VITALS (8 sets, daily range): BP systolic 120–149; BP diastolic 62–77; PULSE 70–93; RESP 16–21; TEMP 97–98.7; O2SAT 93–100
[2016-07-19] MEDS: MORPHINE SULFATE 4 MG/ML INJ IV PRN ×7 (03:03→21:20)
[2016-07-19] MEDS: SODIUM CHLORIDE 0.9% FLUSH 10 ML FLUSH IV FLUSH PRN ×2 (03:03→06:07)
[2016-07-19] MEDS: ONDANSETRON HCL 4 MG/2 ML VIAL IVP PRN ×2 (06:06→13:00)
[2016-07-19] MEDS ORDERED: VANCOMYCIN INJ 1,000 MG in SODIUM CHLOR 0.9% 250 ML INJ 250 ML IV SCH (08:00)
[2016-07-19] MEDS ORDERED: DOCUSATE SODIUM 50 MG/SENNA 8.6 MG TAB PO ONE (08:15)
--- NOTE | 2016-07-19 08:24 | HHI.FPPN ---
Subjective Remarks Remains afebrile, vitals are stable. 3500 mL's removed via hemodialysis. Patient states yesterday at 21:30 he had profuse sweating for a short period of time, an hour later he had an episode of vomiting in his bathroom. After that he denied any fevers chills or night sweats throughout the night. This morning he has complaints of left lower quadrant abdominal pain. He states he has had issues with constipation in the past. States this feels slightly different to that pain. He has not had a bowel movement in 4 days. He states he still has some generalized chest pain, that is nonradiating and not worsened from yesterday, he still associates this with his cough which is just slightly improved from yesterday. He is agreeable to go to hemodialysis today if his abdominal pain is resolved. (Phil Warren MD R1) Objective Vitals Vital Signs Date Time Temp Pulse Resp B/P Pulse Ox O2 Delivery O2 Flow Rate FiO2 07/19/16 04:00 97.9 70 16 149/76 100 07/19/16 00:00 98.7 75 16 124/62 93 07/18/16 20:00 99.6 79 16 112/64 95 07/18/16 20:00 Room Air 07/18/16 16:00 98.6 75 16 97/52 95 07/18/16 13:00 98.5 92 18 150/72 97 I/O 07/18/16 07/18/16 07/18/16 07/19/16 07/19/16 07/19/16 07:00 15:00 23:00 07:00 15:00 23:00 Intake Total 240 ml 360 ml 240 ml 120 ml Output Total 3500 ml 0 ml 0 ml Balance 240 ml -3140 ml 240 ml 120 ml Intake Oral 240 ml 360 ml 240 ml 120 ml Output Urine Total 0 ml 0 ml 0 ml Hemodialysis 3500 ml # Bowel Movements 0 0 0 (Phil Warren MD R1) Result Diagram: 07/18/16 0615 07/18/16 0615 Objective Remarks GENERAL: in NAD, no resp distress, nontoxic. Talks in complete sentences. HEENT: NCAt, EOMI, no scleral icterus, no conjunctival injection. MMM. No nasal flaring. NECK: Supple, no meningeal signs. CV: RRR, S1 S2. No murmurs. CHEST/PULM: BS equal b/l. + end exp wheeze throughout. No crackles. Vascath at R anterior chest. ABD/GI: +BS in all quadrants, soft, protuberant, moderately tender in LLQ also tender in LUQ. Obese. No guarding or rebound tenderness. EXT: 1+ DP pulses; no calf tenderness. No edema. Left AV fistula. NEURO: Awake, alert. Normal muscle tone. Grossly nonfocal. SKIN: No rashes, no jaundice. PSYCH: Mood and affect are appropriate. Speech fluent. Does not appear to respond to internal stimuli. (Phil Warren MD R1) A/P Assessment and Plan 51-year-old male with CVID, ESRD on HD T/ presented meeting sepsis criteria due to community-acquired pneumonia, patient has a h/o MRSA pneumonia . Discharge Planning Anticipate discharge in 1-2 days pending clinical improvement (Phil Warren MD R1) Attending Attestation Patient seen and examined, discussed with resident team. I agree with assessment and management as documented and discussed with me. Pt complains of LLQ abdominal pain. No BM x 4 days. No fevers. + vomiting ( unwitnessed) last night. Sputum culture is not growing MRSA. (Gaye Manriquez MD) Problem List: (1) MRSA pneumonia Status: Acute Plan: ID consulted, appreciate recommendations Continue vancomycin as ordered; to be arranged around dialysis. 07/16/16 --> Continue Levaquin 250 mg by mouth daily, length of course to be determined by ID Blood cultures from 07/16 no growth after 3 days Legionella urine presumptive negative pneumococcal urine presumptive negative sputum culture 07/17 heavy growth of normal respiratory rickie acapella, incentive spirometer Nebulizers PRN for wheezing (2) ESRD (end stage renal disease) Status: Chronic Plan: Nephrology consult Went for dialysis 07/18 per nephrology Continue normal schedule of Dialysis Monday, , Monday (3) LLQ abdominal pain Status: Acute Plan: Most likely due to constipation Abdomen is soft, no guarding, no rebound tenderness Patient was given milk of mag on 03:00 Give pericolace 2 tabs and miralax x1 now Fleets enema prn if no BM after miralax if there is suspected impaction Serial abdominal exams, will reevaluate this PM Consider other etiologies and further workup to include abdominal x-ray or possible abdomen CT if pain does not resolve with a BM (4) Pulmonary hypertension Status: Chronic Plan: Continue home medication sildenafil 40 mg by mouth twice a day (5) CAD (coronary artery disease) Status: Chronic Plan: Asymptomatic. EKG in sinus rhythm, with first-degree AV block Continue home medications. (6) Hypertension Status: Chronic Plan: Continue home medications. Monitor BP. (7) Anemia in chronic kidney disease (CKD) Status: Chronic Plan: Hemoglobin at baseline, continue to monitor No active bleeding. (8) Thrombocytopenia Status: Chronic Plan: Platelet count at baseline. No obvious active bleeding. No further intervention at this time. Continue to monitor (9) A-fib Status: Chronic Plan: On Amiodarone. If worsening SOB, consider d/c of amiodarone as it may contribute to decreased lung function. Pt is currently not on anticoagulation, except for heparin SQ Q12. Will need to determine need for anticoagulation at discharge Currently in sinus rhythm. Fluids not indicated, per by mouth Monitor electrolytes, continue dialysis Regular diet at patient request GI prophylaxis with Protonix 20 mg by mouth twice a day DVT prophylaxis with heparin 5000 units subcutaneous every 12 hours (Phil Warren MD R1) Problem Qualifiers (1) Hypertension: Qualified Code: I10 - Essential hypertension Phil Warren MD R1 July 19, 2016 08:24 Gaye Manriquez MD July 19, 2016 15:56
[2016-07-19 08:32] LABS: BASOPHIL % 0.5 % (0.0-2.0); EOSINOPHIL # 0.1 TH/MM3 (0-0.4); EOSINOPHIL % 3.3 % (0.0-4.0); HEMATOCRIT 29.3 % (39.0-51.0); LYMPHOCYTE # 0.4 TH/MM3 (1.0-4.8); MEAN CORPUSCULAR HEMOGLOBIN 29.2 PG (27.0-34.0); MEAN CORPUSCULAR HGB CONC 33.6 % (32.0-36.0); MONO % 14.4 % (0.0-8.0); NEUT % 71.8 % (16.0-70.0); PLATELET COUNT 70 TH/MM3 (150-450); RED BLOOD COUNT 3.37 MIL/MM3 (4.50-5.90); RED CELL DISTRIBUTION WIDTH 16.6 % (11.6-17.2); WHITE BLOOD COUNT 4.2 TH/MM3 (4.0-11.0)
[2016-07-19] MEDS: SODIUM CHLORIDE 0.9% FLUSH 10 ML FLUSH IV FLUSH SCH ×2 (08:47→21:00)
[2016-07-19] MEDS: CALCIUM ACETATE 667 MG CAP PO SCH ×2 (08:47→13:00)
[2016-07-19] MEDS: LEVOFLOXACIN 250 MG TAB PO SCH (08:47)
[2016-07-19] MEDS: PANTOPRAZOLE SOD 20 MG DELAYED RELEASE TAB PO SCH ×2 (08:48→21:17)
[2016-07-19] MEDS: SILDENAFIL CITRATE 20 MG TAB PO SCH ×2 (08:49→21:18)
[2016-07-19 08:54] LABS: HEMO FLAGS AUTO DIFF
[2016-07-19] MEDS ORDERED: POLYETHYLENE GLYCOL 17 GM PKG PO ONE (09:00)
[2016-07-19] MEDS: HEPARIN SODIUM - SQ 10,000 UNITS/ML VIAL SQ SCH ×2 (09:00→21:19)
[2016-07-19 09:11] LABS: BICARBONATE 27.3 MEQ/L (21.0-32.0); MAGNESIUM 2.1 MG/DL (1.5-2.5)
[2016-07-19 09:26] LABS: HEPATITIS B SURFACE ANTIBODY 125 mIU/mL
[2016-07-19 09:51] LABS: OVALOCYTES 1+ (NORMAL); PLATELET ESTIMATE SMEAR LOW (NORMAL); PLATELET MORPHOLOGY NORMAL (NORMAL); SCAN/DIFF AUTO DIFF CONFIRMED; TEARDROP RBCS 1+ (NORMAL)
[2016-07-19] MEDS ORDERED: SOD PHOSPHATE/SOD BIPHOSPHATE (ADULT) ENEMA 133ML RECTAL PRN (10:00)
--- NOTE | 2016-07-19 12:07 | HHI.IDPN ---
Subjective Subjective Remarks Notes reviewed Temps better Continues to have raspy cough Sputum showed normal respiratory rickie Complaining of constipation No nausea or vomiting No rash or itching Legionella and pneumococcal antigen negative Antibiotics IV Vanco Levaquin Lines PIV Past Medical History CAD, and previous DC History of A. fib with ablation ESRD, on hemodialysis Monday and Monday CHF Pulmonary hypertension Anxiety Hyperlipidemia Hypertension Common immune deficiency syndrome GERD Chronic low back pain Recurrent MRSA pneumonia and recent treatment for staph epi bacteremia Past Surgical History Left upper extremity AV fistula, had revision January 2016 Cardiac catheterization History of pericardial window Allergies: Coded Allergies: Albuterol (Verified Allergy, Severe, 07/16/16) violent shaking Meclizine (Verified Allergy, Severe, 07/16/16) swelling Penicillin (Verified Allergy, Severe, Rash, 07/16/16) Uncoded Allergies: plastic tape (Allergy, Severe, 06/25/16) breaks out Objective . Vital Signs Date Time Temp Pulse Resp B/P Pulse Ox O2 Delivery O2 Flow Rate FiO2 07/19/16 10:50 98 07/19/16 08:00 94 Room Air 07/19/16 08:00 97.9 75 18 137/75 98 07/19/16 04:00 97.9 70 16 149/76 100 07/19/16 00:00 98.7 75 16 124/62 93 07/18/16 20:00 99.6 79 16 112/64 95 07/18/16 20:00 Room Air 07/18/16 16:00 98.6 75 16 97/52 95 07/18/16 14:05 16 07/18/16 13:00 98.5 92 18 150/72 97 07/18/16 07/18/16 07/19/16 15:00 23:00 07:00 Intake Total 360 ml 240 ml 120 ml Output Total 3500 ml 0 ml 0 ml Balance -3140 ml 240 ml 120 ml Intake Oral 360 ml 240 ml 120 ml Output Urine Total 0 ml 0 ml 0 ml Hemodialysis 3500 ml # Bowel Movements 0 0 0 . Laboratory Tests Test 07/18/16 07/19/16 06:15 07:10 White Blood Count 4.7 TH/MM3 4.2 TH/MM3 Red Blood Count 3.07 MIL/MM3 3.37 MIL/MM3 Hemoglobin 8.8 GM/DL 9.8 GM/DL Hematocrit 27.0 % 29.3 % Mean Corpuscular Volume 87.8 FL 87.0 FL Mean Corpuscular Hemoglobin 28.7 PG 29.2 PG Mean Corpuscular Hemoglobin 32.7 % 33.6 % Concent Red Cell Distribution Width 16.3 % 16.6 % Platelet Count 69 TH/MM3 70 TH/MM3 Mean Platelet Volume 8.1 FL 8.3 FL Neutrophils (%) (Auto) 66.2 % 71.8 % Lymphocytes (%) (Auto) 13.0 % 10.0 % Monocytes (%) (Auto) 16.9 % 14.4 % Eosinophils (%) (Auto) 3.2 % 3.3 % Basophils (%) (Auto) 0.7 % 0.5 % Neutrophils # (Auto) 3.1 TH/MM3 3.0 TH/MM3 Lymphocytes # (Auto) 0.6 TH/MM3 0.4 TH/MM3 Monocytes # (Auto) 0.8 TH/MM3 0.6 TH/MM3 Eosinophils # (Auto) 0.1 TH/MM3 0.1 TH/MM3 Basophils # (Auto) 0.0 TH/MM3 0.0 TH/MM3 CBC Comment AUTO DIFF AUTO DIFF Differential Comment AUTO DIFF AUTO DIFF CONFIRMED CONFIRMED Platelet Estimate LOW LOW Platelet Morphology Comment NORMAL NORMAL Tear Drop Cells 1+ 1+ Ovalocytes 1+ 1+ Laboratory Tests Test 07/18/16 07/19/16 06:15 07:10 Sodium Level 137 MEQ/L 138 MEQ/L Potassium Level 5.5 MEQ/L 5.0 MEQ/L Chloride Level 102 MEQ/L 98 MEQ/L Carbon Dioxide Level 22.7 MEQ/L 27.3 MEQ/L Anion Gap 12 MEQ/L 13 MEQ/L Blood Urea Nitrogen 69 MG/DL 49 MG/DL Creatinine 12.05 MG/DL 9.77 MG/DL Estimat Glomerular Filtration 4 ML/MIN 6 ML/MIN Rate Random Glucose 127 MG/DL 131 MG/DL Calcium Level 8.0 MG/DL 8.6 MG/DL Phosphorus Level 5.7 MG/DL 6.3 MG/DL Magnesium Level 2.1 MG/DL Microbiology Date/Time Procedure Status Source Growth 07/16/16 21:42 Cancelled Sputum Expectorated Sputum 07/17/16 13:00 Gram Stain - Final Complete Sputum Expectorated Sputum 07/17/16 13:00 Sputum Culture - Final Complete Sputum Expectorated Sputum HEAVY GROWTH NORMAL RESPIRATORY RICKIE 07/17/16 18:50 Legionella Antigen - Final Complete Urine Clean Catch PRESUMPTIVE NEGATIVE FOR LEGIONELLA P... 07/17/16 18:50 Streptococcus pneumoniae Antigen (M - Final Complete Urine Clean Catch PRESUMPTIVE NEGATIVE FOR STREPTOCOCCU... Physical Exam GENERAL: awake and alert, not in respiratory distress. SKIN: Warm and dry. No generalized rash, no ecchymoses and no evidence of embolic lesions. HEAD: Atraumatic. Normocephalic. No temporal wasting, or tenderness. EYES: Ebro conjunctiva. No petechia or hemorrhage. No scleral icterus. No injection or drainage. EARS, NOSE AND THROAT: Nose without bleeding or purulent nasal discharge. Mucous membranes pink and moist. No oral lesions noted. No exudate. No oral thrush. NECK: Trachea midline. Supple and not tender, no meningeal signs CARDIOVASCULAR: Regular rate and rhythm. No murmurs, rubs or gallops heard RESPIRATORY: Breath sounds equal bilaterally. Has scattered wheezing. Decreased breath sounds at the bases. ABDOMEN: Soft, non-tender, nondistended. Bowel sounds present and normoactive. No guarding. No rebound. No organomegaly. Healed incision. EXTREMITIES: No clubbing, cyanosis, or edema. No joint effusion, has good ROM. No calf tenderness. Well perfused and warm. LUE AVF looks ok NEUROLOGICAL: Awake and alert. Cranial nerves grossly intact. Motor grossly within normal limits. PSYCHIATRIC: Normal affect, calm and cooperative. LINE: Permacath RIJ with no evidence of infection Assessment & Plan Remarks IMPRESSION Sepsis on admission, due to CAP Has known CVID - Immunoglobulin levels okay Previous Hx MRSA PNA ESRD on HD Recent Rx for Staph epi bacteremia COPD by Hx Thrombocytopenia RECOMMENDATION Stop Vanco Continue Levaquin Follow cultures Follow temps Monitor progress Needs better medication for his coughing Explained plan to the patient Priya Garcia MD July 19, 2016 12:06
[2016-07-19] MEDS ORDERED: LEVOFLOXACIN 250 MG TAB PO SCH (13:00)
[2016-07-19] MEDS: diphenhydrAMINE HCL 25 MG CAP PO PRN (13:20)
[2016-07-19] MEDS ORDERED: VANCOMYCIN INJ 1,000 MG in SODIUM CHLOR 0.9% 250 ML INJ 250 ML IV ONE (14:00)
--- NOTE | 2016-07-19 14:22 | HHI.FPPN ---
Addendum to progress note ADDENDUM Reason for addendum: Additonal documentation Additional information Patient seen and evaluated during HD session this afternoon. Patient was sleeping comfortably in bed. Woke patient up. He had a large BM earlier in the day. He states his abdominal pain is slightly improved from earlier but still present. Primary LLQ. He states the associated nausea he was experiencing earlier has gone away. Denies fevers. Abdomen is soft, protuberant, moderate tenderness to palpation in LLQ persists, nontender in other quadrants, +BS, no guarding, no rebound tenderness. Will continue to monitor patient with serial abdominal exams and consider imaging if necessary. Phil Warren MD R1 July 19, 2016 14:22
[2016-07-19] MEDS: EPOETIN ALFA 10,000 UNITS/ML VIAL IV PRN (16:08)
[2016-07-19] MEDS: GENTAMICIN SULFATE (DIALYSIS USE ONLY) 20 MG/2 ML VIAL IV PRN (16:08)
--- NOTE | 2016-07-19 17:48 | HHI.NPPN ---
Subjective History of Present Illness 51-year-old male with past medical history of hypertension, ischemic heart disease, atrial fibrillation, hyperlipidemia, gastroesophageal reflux disease (GERD), end-stage renal disease on hemodialysis three times per week who came to the hospital because of cough and sputum. I was called to see the patient for management of hemodialysis. He has been going to the [facility] in [place] and following with Dr. Ronan Khalil. He has been on hemodialysis Monday, and Monday. Additional Remarks Patient is alert, has nausea and vomiting off and on, with mild abd. pain. Review of Systems General Constitutional: Fatigue Respiratory Lungs: SOB, Cough, Wheeze Cardiovascular Cardiac: Edema, WYLIE Objective Data Data 07/18/16 07/19/16 19:00 07:00 Intake Total 360 ml 360 ml Output Total 3500 ml 0 ml Balance -3140 ml 360 ml Intake Oral 360 ml 360 ml Output Urine Total 0 ml 0 ml Hemodialysis 3500 ml # Bowel Movements 0 0 Vital Signs Date Time Temp Pulse Resp B/P Pulse Ox O2 Delivery O2 Flow Rate FiO2 07/19/16 17:42 98.0 79 18 121/65 94 07/19/16 12:00 97.0 74 18 120/65 97 07/19/16 10:50 98 07/19/16 08:00 94 Room Air 07/19/16 08:00 97.9 75 18 137/75 98 07/19/16 04:00 97.9 70 16 149/76 100 07/19/16 00:00 98.7 75 16 124/62 93 07/18/16 20:00 99.6 79 16 112/64 95 07/18/16 20:00 Room Air -: 07/19/16 0710 07/19/16 0710 Physical Exam General Appearance: Well Nourished, No Acute Distress, Comfortable Eyes Eye Exam: Pupils Equal Throat Throat Exam: Oral Mucosa [place] & Moist Neck Neck Exam: Neck Supple Pulmonary Resp Exam: Crackles, Rhonchi, Sputum, Decreased Bases, Diminished Breath Sounds Cardiology CV Exam: Regular, Normal Sinus Rhythm Gastrointestinal/Abdomen GI Exam: Soft, Non-Tender, Bowel Sounds Present, Non-Distended Extremeties Extremities Exam: Trace Edema Neurologic Neuro Exam: Alert, Awake, Oriented Psychiatric Psych Exam: Appropriate Responses Assessment/Plan Assessment Summary: Hypertension, End Stage Renal Disease Problem List: (1) Anemia (2) CAD (coronary artery disease) (3) Anemia in chronic kidney disease (CKD) (4) Hypertension (5) Thrombocytopenia (6) ESRD (end stage renal disease) (7) Pneumonia Plan Patient has HD done today and 2.5 liters removed. Has vomiting, on Zofran, add Reglan. ID follow up noted, stop Vanco. Continue HD now TTS. Problem Qualifiers (1) Hypertension: Qualified Code: I10 - Essential hypertension Yasmine Gross MD July 19, 2016 17:48
[2016-07-19] MEDS ORDERED: PILL SPLITTER OTHER PRN (18:00)
[2016-07-19] MEDS: ATORVASTATIN 20 MG TAB PO SCH (21:00)
--- NOTE | 2016-07-19 21:01 | HHI.FPPN ---
Addendum to progress note ADDENDUM Reason for addendum: Additonal documentation Additional information Patient seen again ~2044 to re-evaluate abdominal pain. On arrival, pt resting comfortably in bed. States his abdominal pain has slightly improved, but still aches. The pain is primarily located in the LLQ, no radiating pain. No more bowel movements since the one this morning. Nausea/vomiting has improved. Ate some food this evening without any problem. Denies any fever/chills, chest pain , leg pain. On exam, abdomen is soft, protuberant. Tender to palpation in LLQ. Non-tender otherwise. Positive BS in all quadrants. No guarding, no rebound tenderness. Will continue to monitor. Continue medications PRN. If worsens, may consider abdominal xray. Jj Awad MD R1 July 19, 2016 21:01
[2016-07-19] MEDS: METOCLOPRAMIDE HCL 10 MG TAB PO SCH (21:17)
[2016-07-19] MEDS: DOCUSATE SODIUM 50 MG/SENNA 8.6 MG TAB PO SCH (21:18)
[2016-07-19] MEDS: METOPROLOL TARTRATE 50 MG TAB PO SCH (21:18)
[2016-07-20] VITALS (7 sets, daily range): BP systolic 103–136; BP diastolic 54–67; PULSE 66–77; RESP 16–20; TEMP 98–98.4; O2SAT 95–100
[2016-07-20] MEDS: MORPHINE SULFATE 4 MG/ML INJ IV PRN ×8 (00:19→21:25)
[2016-07-20] MEDS: SODIUM CHLORIDE 0.9% FLUSH 10 ML FLUSH IV FLUSH PRN (03:15)
[2016-07-20] MEDS: METOCLOPRAMIDE HCL 10 MG TAB PO SCH ×4 (06:00→21:24)
--- NOTE | 2016-07-20 07:28 | HHI.FPPN ---
Subjective Remarks No acute events overnight. Remains afebrile, vitals are stable. Went for HD yesterday, removed 2500 mL. Patient states he had another bowel movement late last night. States his LLQ abdominal pain is still present, still only slightly improved since the onset. Denies radiation of pain. Denies any new abdominal pain. Denies fevers, he states he feels warm at times and sometimes has chills. He states he feels nauseated this morning and is hesitant to eat breakfast as he might vomit. He states usually IV zofran helps. He is still coughing and having clear/white production. Per RN, he has not been wanting to take tylenol with codeine or tessalon. Denies SOB. Ambulatory within room. (Phil Warren MD R1) Objective Vitals Vital Signs Date Time Temp Pulse Resp B/P Pulse Ox O2 Delivery O2 Flow Rate FiO2 07/20/16 04:00 98.1 67 20 105/61 99 07/20/16 00:00 98.4 74 20 104/54 100 07/19/16 20:00 Room Air 07/19/16 20:00 98.6 80 20 126/65 97 07/19/16 20:00 98.0 93 21 145/77 97 07/19/16 17:52 94 21 07/19/16 17:42 98.0 79 18 121/65 94 07/19/16 12:00 97.0 74 18 120/65 97 07/19/16 10:50 98 07/19/16 08:00 94 Room Air 07/19/16 08:00 97.9 75 18 137/75 98 I/O 07/19/16 07/19/16 07/19/16 07/20/16 07/20/16 07/20/16 07:00 15:00 23:00 07:00 15:00 23:00 Intake Total 120 ml 360 ml 360 ml 480 ml Output Total 0 ml 2500 ml Balance 120 ml 360 ml -2140 ml 480 ml Intake Oral 120 ml 360 ml 360 ml 480 ml Output Urine Total 0 ml Hemodialysis 2500 ml # Voids 1 2 2 # Bowel Movements 0 2 1 1 (Phil Warren MD R1) Result Diagram: 07/19/16 0710 07/19/16 0710 Objective Remarks GENERAL: in NAD, no resp distress, nontoxic. Talks in complete sentences. HEENT: NCAt, EOMI, no scleral icterus, no conjunctival injection. MMM. No nasal flaring. NECK: Supple, no meningeal signs. CV: RRR, S1 S2. No murmurs. CHEST/PULM: BS equal b/l. + end exp wheeze throughout. No crackles. ABD/GI: +BS in all quadrants, soft, protuberant, moderately tender in LLQ. Obese. No guarding or rebound tenderness. EXT: 1+ DP pulses; no calf tenderness. No edema. Left AV fistula. NEURO: Awake, alert. Normal muscle tone. Grossly nonfocal. SKIN: No rashes, no jaundice. PSYCH: Mood and affect are appropriate. Speech fluent. Does not appear to respond to internal stimuli. (Phil Warren MD R1) A/P Assessment and Plan 51-year-old male with CVID, ESRD on HD T/ presented meeting sepsis criteria due to community-acquired pneumonia, patient has a h/o MRSA pneumonia . Discharge Planning Anticipate discharge in 1-2 days pending clinical improvement (Phil Warren MD R1) Attending Attestation Patient seen, and examined, discussed with resident team. I agree with assessment and management as documented and discussed with me. Pt seen this afternoon with Dr. Warren. Pt reports nausea this afternoon but appears comfortable. Also complains of significant cough, but no cough during exam/interview of 45 minutes. Discussed potential for PFTs as an outpatient to evaluate for restrictive lung disease caused by Amiodarone. Anticipate discharge tomorrow after dialysis. (Gaye Manriquez MD) Problem List: (1) Pneumonia Status: Acute Plan: ID consulted, appreciate recommendations Vancomycin now discontinued; to be arranged around dialysis. Continue Levaquin 250 mg by mouth daily, length of course to be determined by ID Blood cultures from 07/16 no growth after 4 days Legionella urine presumptive negative pneumococcal urine presumptive negative sputum culture 07/17 heavy growth of normal respiratory rickie acapella, incentive spirometer Nebulizers PRN for wheezing Obtain PFTs if possible at bedside by respiratory therapy as patient continues to have significant coughing and frequent pneumonias; patient is also on amiodarone and may have developed pulmonary fibrosis from this PFTs to be ordered after discharge and patient will need close follow up with his primary care physician and 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 (2) ESRD (end stage renal disease) Status: Chronic Plan: Nephrology consult, managing HD Continue normal schedule of Dialysis Monday, , Monday (3) LLQ abdominal pain Status: Acute Plan: Most likely due to constipation Abdomen is soft, no guarding, no rebound tenderness Patient having BMs now Continue pericolace 2 tabs po bid Fleets enema prn Serial abdominal exams, will reevaluate this PM Obtain abdominal x-ray flat and upright (4) Pulmonary hypertension Status: Chronic Plan: Continue home medication sildenafil 40 mg by mouth twice a day (5) CAD (coronary artery disease) Status: Chronic Plan: Asymptomatic. EKG in sinus rhythm, with first-degree AV block Continue home medications. (6) Hypertension Status: Chronic Plan: Continue home medications. Monitor BP. (7) Anemia in chronic kidney disease (CKD) Status: Chronic Plan: Hemoglobin at baseline, continue to monitor No active bleeding. (8) Thrombocytopenia Status: Chronic Plan: Platelet count at baseline. No obvious active bleeding. No further intervention at this time. Continue to monitor (9) A-fib Status: Chronic Plan: On Amiodarone. If worsening SOB, consider d/c of amiodarone as it may contribute to decreased lung function. Pt is currently not on anticoagulation, except for heparin SQ Q12. Will need to determine need for anticoagulation at discharge Currently in sinus rhythm. Fluids not indicated, per by mouth Monitor electrolytes, continue dialysis Regular diet at patient request GI prophylaxis with Protonix 20 mg by mouth twice a day DVT prophylaxis with heparin 5000 units subcutaneous every 12 hours (Phil Warren MD R1) Problem Qualifiers (1) Hypertension: Qualified Code: I10 - Essential hypertension Phil Warren MD R1 July 20, 2016 07:28 Gaye Manriquez MD July 20, 2016 20:12
[2016-07-20] MEDS: ONDANSETRON HCL 4 MG/2 ML VIAL IVP PRN ×3 (08:30→21:24)
[2016-07-20 08:48] LABS: AUTOMATED NEUTROPHIL # 3.2 TH/MM3 (1.8-7.7); BASOPHIL % 0.5 % (0.0-2.0); EOSINOPHIL # 0.3 TH/MM3 (0-0.4); EOSINOPHIL % 5.7 % (0.0-4.0); HEMATOCRIT 29.1 % (39.0-51.0); LYMPH % 13.8 % (9.0-44.0); LYMPHOCYTE # 0.6 TH/MM3 (1.0-4.8); MEAN CELL VOLUME 87.1 FL (80.0-100.0); MEAN CORPUSCULAR HEMOGLOBIN 29.1 PG (27.0-34.0); MEAN CORPUSCULAR HGB CONC 33.4 % (32.0-36.0); MONO % 11.5 % (0.0-8.0); NEUT % 68.5 % (16.0-70.0); PLATELET COUNT 72 TH/MM3 (150-450); RED BLOOD COUNT 3.34 MIL/MM3 (4.50-5.90); RED CELL DISTRIBUTION WIDTH 16.3 % (11.6-17.2); WHITE BLOOD COUNT 4.7 TH/MM3 (4.0-11.0)
[2016-07-20 08:57] LABS: HEMO FLAGS AUTO DIFF
[2016-07-20] MEDS: CALCIUM ACETATE 667 MG CAP PO SCH ×3 (08:57→18:27)
[2016-07-20] MEDS: LEVOFLOXACIN 250 MG TAB PO SCH (08:57)
[2016-07-20] MEDS: PANTOPRAZOLE SOD 20 MG DELAYED RELEASE TAB PO SCH ×2 (08:57→21:24)
[2016-07-20] MEDS: AMIODARONE 200 MG TAB PO SCH (08:58)
[2016-07-20] MEDS: METOPROLOL TARTRATE 50 MG TAB PO SCH ×2 (08:58→21:24)
[2016-07-20] MEDS: DOCUSATE SODIUM 50 MG/SENNA 8.6 MG TAB PO SCH ×2 (08:58→21:23)
[2016-07-20] MEDS: SILDENAFIL CITRATE 20 MG TAB PO SCH ×2 (08:59→21:24)
[2016-07-20] MEDS: ACETAMINOPHEN/CODEINE ELIX 120 MG/12 MG/5 ML CUP PO PRN ×2 (08:59→18:27)
[2016-07-20] MEDS: HEPARIN SODIUM - SQ 10,000 UNITS/ML VIAL SQ SCH ×2 (09:00→21:23)
[2016-07-20] MEDS: SODIUM CHLORIDE 0.9% FLUSH 10 ML FLUSH IV FLUSH SCH ×2 (09:01→21:23)
[2016-07-20] MEDS: ONDANSETRON HCL 4 MG/2 ML VIAL IV PRN (09:06)
[2016-07-20 09:16] LABS: BICARBONATE 32.2 MEQ/L (21.0-32.0); MAGNESIUM 2.2 MG/DL (1.5-2.5); POTASSIUM 5.1 MEQ/L (3.5-5.1)
[2016-07-20 09:53] LABS: OVALOCYTES 1+ (NORMAL); PLATELET ESTIMATE SMEAR LOW (NORMAL); PLATELET MORPHOLOGY NORMAL (NORMAL); SCAN/DIFF AUTO DIFF CONFIRMED; TEARDROP RBCS 1+ (NORMAL)
--- NOTE | 2016-07-20 13:39 | HHI.IDPN ---
Subjective Subjective Remarks Notes reviewed Temps better Having some nausea - chronic and intermittent problem Coughing seems less No rash or itching Legionella and pneumococcal antigen negative Had BM yesterday Antibiotics Levaquin Lines PIV Past Medical History CAD, and previous IA History of A. fib with ablation ESRD, on hemodialysis Monday and Monday CHF Pulmonary hypertension Anxiety Hyperlipidemia Hypertension Common immune deficiency syndrome GERD Chronic low back pain Recurrent MRSA pneumonia and recent treatment for staph epi bacteremia Past Surgical History Left upper extremity AV fistula, had revision January 2016 Cardiac catheterization History of pericardial window Allergies: Coded Allergies: Albuterol (Verified Allergy, Severe, 07/16/16) violent shaking Meclizine (Verified Allergy, Severe, 07/16/16) swelling Penicillin (Verified Allergy, Severe, Rash, 07/16/16) Uncoded Allergies: plastic tape (Allergy, Severe, 06/25/16) breaks out Objective . Vital Signs Date Time Temp Pulse Resp B/P Pulse Ox O2 Delivery O2 Flow Rate FiO2 07/20/16 13:28 98 21 07/20/16 12:00 98.0 66 18 103/56 97 07/20/16 08:00 98.3 77 20 136/67 98 07/20/16 04:00 98.1 67 20 105/61 99 07/20/16 00:00 98.4 74 20 104/54 100 07/19/16 20:00 Room Air 07/19/16 20:00 98.6 80 20 126/65 97 07/19/16 20:00 98.0 93 21 145/77 97 07/19/16 17:52 94 21 07/19/16 17:42 98.0 79 18 121/65 94 07/19/16 07/19/16 07/20/16 15:00 23:00 07:00 Intake Total 360 ml 360 ml 480 ml Output Total 2500 ml Balance 360 ml -2140 ml 480 ml Intake Oral 360 ml 360 ml 480 ml Hemodialysis 2500 ml # Voids 1 2 2 # Bowel Movements 2 1 1 . Laboratory Tests Test 07/19/16 07/20/16 07:10 08:18 White Blood Count 4.2 TH/MM3 4.7 TH/MM3 Red Blood Count 3.37 MIL/MM3 3.34 MIL/MM3 Hemoglobin 9.8 GM/DL 9.7 GM/DL Hematocrit 29.3 % 29.1 % Mean Corpuscular Volume 87.0 FL 87.1 FL Mean Corpuscular Hemoglobin 29.2 PG 29.1 PG Mean Corpuscular Hemoglobin 33.6 % 33.4 % Concent Red Cell Distribution Width 16.6 % 16.3 % Platelet Count 70 TH/MM3 72 TH/MM3 Mean Platelet Volume 8.3 FL 8.7 FL Neutrophils (%) (Auto) 71.8 % 68.5 % Lymphocytes (%) (Auto) 10.0 % 13.8 % Monocytes (%) (Auto) 14.4 % 11.5 % Eosinophils (%) (Auto) 3.3 % 5.7 % Basophils (%) (Auto) 0.5 % 0.5 % Neutrophils # (Auto) 3.0 TH/MM3 3.2 TH/MM3 Lymphocytes # (Auto) 0.4 TH/MM3 0.6 TH/MM3 Monocytes # (Auto) 0.6 TH/MM3 0.5 TH/MM3 Eosinophils # (Auto) 0.1 TH/MM3 0.3 TH/MM3 Basophils # (Auto) 0.0 TH/MM3 0.0 TH/MM3 CBC Comment AUTO DIFF AUTO DIFF Differential Comment AUTO DIFF AUTO DIFF CONFIRMED CONFIRMED Platelet Estimate LOW LOW Platelet Morphology Comment NORMAL NORMAL Tear Drop Cells 1+ 1+ Ovalocytes 1+ 1+ Laboratory Tests Test 07/19/16 07/20/16 07:10 08:18 Sodium Level 138 MEQ/L 140 MEQ/L Potassium Level 5.0 MEQ/L 5.1 MEQ/L Chloride Level 98 MEQ/L 99 MEQ/L Carbon Dioxide Level 27.3 MEQ/L 32.2 MEQ/L Anion Gap 13 MEQ/L 9 MEQ/L Blood Urea Nitrogen 49 MG/DL 38 MG/DL Creatinine 9.77 MG/DL 7.90 MG/DL Estimat Glomerular Filtration 6 ML/MIN 7 ML/MIN Rate Random Glucose 131 MG/DL 140 MG/DL Calcium Level 8.6 MG/DL 8.1 MG/DL Phosphorus Level 6.3 MG/DL 4.5 MG/DL Magnesium Level 2.1 MG/DL 2.2 MG/DL Microbiology Date/Time Procedure Status Source Growth 07/17/16 18:50 Legionella Antigen - Final Complete Urine Clean Catch PRESUMPTIVE NEGATIVE FOR LEGIONELLA P... 07/17/16 18:50 Streptococcus pneumoniae Antigen (M - Final Complete Urine Clean Catch PRESUMPTIVE NEGATIVE FOR STREPTOCOCCU... Physical Exam GENERAL: awake and alert, not in respiratory distress. SKIN: Warm and dry. No generalized rash. HEAD: Atraumatic. Normocephalic. No temporal wasting, or tenderness. EYES: [place] conjunctiva. No petechia or hemorrhage. No scleral icterus. No injection or drainage. EARS, NOSE AND THROAT: Nose without bleeding or purulent nasal discharge. Mucous membranes pink and moist. No oral lesions noted. No exudate. No oral thrush. NECK: Trachea midline. Supple and not tender, no meningeal signs CARDIOVASCULAR: Regular rate and rhythm. No murmurs, rubs or gallops heard RESPIRATORY: Breath sounds equal bilaterally. Decreased breath sounds at the bases. Better air movement ABDOMEN: Soft, non-tender, nondistended. Bowel sounds present and normoactive. No guarding. No rebound. No organomegaly. Healed incision. EXTREMITIES: No clubbing, cyanosis, or edema. No calf tenderness. Well perfused and warm. LUE AVF looks ok NEUROLOGICAL: Non-focal PSYCHIATRIC: Normal affect, calm and cooperative. LINE: Permacath RIJ with no evidence of infection Assessment & Plan Remarks IMPRESSION Sepsis on admission, due to CAP, resolved Has known CVID - Immunoglobulin levels okay Previous Hx MRSA PNA ESRD on HD Recent Rx for Staph epi bacteremia COPD by Hx Thrombocytopenia RECOMMENDATION Continue Levaquin, give until July 26 - I have ordered end date in [facility] Clinically he is doing well from ID standpoint Can be D/C anytime from my standpoint I will sign off Please call if with any new ID issue or question rPiya Garcia MD July 20, 2016 13:39
--- NOTE | 2016-07-20 13:52 | RADRPT ---
EXAM DATE/TIME: 07/20/2016 13:28 [facility] COMPARISON: ABDOMEN FLAT & UPRIGHT, June 25, 2016, 21:27. INDICATIONS : Abdominal pain. MEDICAL HISTORY : Myocardial infarction. Hypercholesterolemia. Chronic obstructive pulmonary disease. CVA. CHF. Cardiom yopathy. A-fib. Hypertension. Pneumonia. Pancreatitis. Inguinal hernia. Renal failure. Hepatitis B. A rthritis. SURGICAL HISTORY : Tonsillectomy. AV shunt. Cardiac cath. Dialysis. Blood transfusion. ENCOUNTER: Subsequent ACUITY: 4 - 6 days PAIN SCORE: 7/10 LOCATION: upper quadrant abdomen. FINDINGS: Supine and upright views of the abdomen were performed. The abdominal bowel gas pattern is normal. No air fluid levels are seen. No abnormal masses, calcifications, or organomegaly is seen. The visu alized lower lungs are clear. No evidence of free intraperitoneal gas. The osseous structures are u nremarkable. CONCLUSION: No acute disease. Bal Roblero MD on July 20, 2016 at 13:50 Board Certified Radiologist. This report was verified electronically.
[2016-07-20] MEDS ORDERED: ACET120S PO (13:59)
[2016-07-20] MEDS ORDERED: BENZ100 PO (13:59)
[2016-07-20] MEDS ORDERED: MILKSUS PO (13:59)
[2016-07-20] MEDS ORDERED: LEVA250T PO (13:59)
--- NOTE | 2016-07-20 14:01 | HHI.DCPOC ---
Discharge Care Plan Diagnosis: (1) Anemia in chronic kidney disease (CKD) (2) A-fib (3) ESRD (end stage renal disease) (4) Pneumonia Goals to Promote Your Health * To prevent worsening of your condition and complications, and to maintain your health at the optimal level, follow up with your primary care physician within one week after leaving this hospital. Directions to Meet Your Goals Take your medications as prescribed Follow your dietary instruction Follow activity as directed Keep your appointments as scheduled Take your immunizations and boosters as scheduled If your symptoms worsen call your PCP, if no PCP go to Urgent Care Center or Emergency Room Smoking is Dangerous to Your Health. Avoid second hand smoke Call the 24-hour hour crisis hotline for domestic abuse at Phil Warren MD R1 July 20, 2016 14:01
--- NOTE | 2016-07-20 16:36 | HHI.NPPN ---
Subjective History of Present Illness 51-year-old male with past medical history of hypertension, ischemic heart disease, atrial fibrillation, hyperlipidemia, gastroesophageal reflux disease (GERD), end-stage renal disease on hemodialysis three times per week who came to the hospital because of cough and sputum. I was called to see the patient for management of hemodialysis. He has been going to the [facility] in [place] and following with Dr. Ronan Khalil. He has been on hemodialysis Monday, and Monday. Additional Remarks Patient is alert, has nausea and vomiting off and on, abd. pain is better, no vomiting today. Review of Systems General Constitutional: Fatigue Respiratory Lungs: SOB, Cough, Wheeze Cardiovascular Cardiac: Edema, WYLIE Objective Data Data 07/19/16 07/20/16 18:59 06:59 Intake Total 360 ml 840 ml Output Total 2500 ml Balance -2140 ml 840 ml Intake Oral 360 ml 840 ml Hemodialysis 2500 ml # Voids 1 4 # Bowel Movements 2 2 Vital Signs Date Time Temp Pulse Resp B/P Pulse Ox O2 Delivery O2 Flow Rate FiO2 07/20/16 13:28 98 21 07/20/16 12:00 98.0 66 18 103/56 97 07/20/16 08:00 98.3 77 20 136/67 98 07/20/16 04:00 98.1 67 20 105/61 99 07/20/16 00:00 98.4 74 20 104/54 100 07/19/16 20:00 Room Air 07/19/16 20:00 98.6 80 20 126/65 97 07/19/16 20:00 98.0 93 21 145/77 97 07/19/16 17:52 94 21 07/19/16 17:42 98.0 79 18 121/65 94 -: 07/20/16 0818 07/20/16 0818 Physical Exam General Appearance: Well Nourished, No Acute Distress, Comfortable Eyes Eye Exam: Pupils Equal Throat Throat Exam: Oral Mucosa [place] & Moist Neck Neck Exam: Neck Supple Pulmonary Resp Exam: Crackles, Rhonchi, Sputum, Decreased Bases, Diminished Breath Sounds Cardiology CV Exam: Regular, Normal Sinus Rhythm Gastrointestinal/Abdomen GI Exam: Soft, Non-Tender, Bowel Sounds Present, Non-Distended Extremeties Extremities Exam: Trace Edema Neurologic Neuro Exam: Alert, Awake, Oriented Psychiatric Psych Exam: Appropriate Responses Assessment/Plan Assessment Summary: Hypertension, End Stage Renal Disease Problem List: (1) Anemia (2) CAD (coronary artery disease) (3) Anemia in chronic kidney disease (CKD) (4) Hypertension (5) Thrombocytopenia (6) ESRD (end stage renal disease) (7) Pneumonia Plan Patient has HD done yesterday. Has vomiting, on Zofran, add Reglan. ID follow up noted, stop Vanco. Continue HD now TTS. Cough and breathing is better. HD will be in AM. Problem Qualifiers (1) Hypertension: Qualified Code: I10 - Essential hypertension Yasmine Gross MD July 20, 2016 16:36
[2016-07-20] MEDS: ATORVASTATIN 20 MG TAB PO SCH (21:23)
[2016-07-20] MEDS: PROMETHAZINE HCL 25 MG TAB PO PRN (23:25)
[2016-07-21] MEDS: MORPHINE SULFATE 4 MG/ML INJ IV PRN ×5 (00:37→13:43)
[2016-07-21 00:39] VITALS: BP 140/77; PULSE 79; RESP 18; TEMP 98.5; O2SAT 96
[2016-07-21] MEDS: ONDANSETRON HCL 4 MG/2 ML VIAL IVP PRN ×3 (03:56→16:11)
[2016-07-21 04:30] VITALS: BP 134/79; PULSE 72; RESP 18; TEMP 98.3; O2SAT 95
[2016-07-21] MEDS: METOCLOPRAMIDE HCL 10 MG TAB PO SCH ×3 (06:52→16:19)
[2016-07-21 08:00] VITALS: BP 131/74; PULSE 76; RESP 12; TEMP 98.1; O2SAT 92
[2016-07-21] MEDS: ACETAMINOPHEN/CODEINE ELIX 120 MG/12 MG/5 ML CUP PO PRN ×2 (08:02→16:11)
[2016-07-21] MEDS: PANTOPRAZOLE SOD 20 MG DELAYED RELEASE TAB PO SCH (08:03)
[2016-07-21] MEDS: HEPARIN SODIUM - SQ 10,000 UNITS/ML VIAL SQ SCH (08:03)
[2016-07-21] MEDS: LEVOFLOXACIN 250 MG TAB PO SCH (08:04)
[2016-07-21] MEDS: DOCUSATE SODIUM 50 MG/SENNA 8.6 MG TAB PO SCH (08:04)
[2016-07-21] MEDS: SODIUM CHLORIDE 0.9% FLUSH 10 ML FLUSH IV FLUSH SCH (08:04)
[2016-07-21] MEDS: CALCIUM ACETATE 667 MG CAP PO SCH ×2 (08:06→13:42)
[2016-07-21] MEDS: SILDENAFIL CITRATE 20 MG TAB PO SCH (08:06)
[2016-07-21] MEDS: METOPROLOL TARTRATE 50 MG TAB PO SCH (08:07)
[2016-07-21] MEDS: AMIODARONE 200 MG TAB PO SCH (08:07)
[2016-07-21 08:38] LABS: BICARBONATE 30.4 MEQ/L (21.0-32.0); MAGNESIUM 2.2 MG/DL (1.5-2.5); POTASSIUM 4.8 MEQ/L (3.5-5.1)
[2016-07-21] MEDS: EPOETIN ALFA 10,000 UNITS/ML VIAL IV PRN (09:23)
[2016-07-21] MEDS: GENTAMICIN SULFATE (DIALYSIS USE ONLY) 20 MG/2 ML VIAL IV PRN (09:23)
[2016-07-21] MEDS: diphenhydrAMINE HCL 25 MG CAP PO PRN (09:23)
[2016-07-21] MEDS: HEPARIN SODIUM - IV 10,000 UNITS/10 ML VIAL PRN (09:24)
[2016-07-21 11:53] LABS: HEP B DNA R1 LESS THAN 20 IU/mL (()); HEP B DNA R2 LESS THAN 1.30 (())
--- NOTE | 2016-07-21 12:25 | HHI.FPPN ---
Subjective Remarks No acute events overnight. Afebrile, vitals are stable. Patient seen and examined this AM during HD session. Patient states he has had some nausea with his meals; states his nausea has been ongoing for about the past 2 months. Denies any worsening SOB. (Phil Warren MD R1) Objective Vitals Vital Signs Date Time Temp Pulse Resp B/P Pulse Ox O2 Delivery O2 Flow Rate FiO2 07/21/16 08:00 98.1 76 12 131/74 92 07/21/16 04:30 98.3 72 18 134/79 95 07/21/16 00:39 98.5 79 18 140/77 96 07/20/16 20:00 98.3 70 16 123/59 95 07/20/16 17:46 21 07/20/16 16:00 98.2 73 18 105/63 97 07/20/16 13:28 98 21 I/O 07/20/16 07/20/16 07/20/16 07/21/16 07/21/16 07/21/16 07:00 15:00 23:00 07:00 15:00 23:00 Intake Total 480 ml 960 ml 1550 ml Output Total 700 ml Balance 480 ml 960 ml 850 ml Intake Oral 480 ml 960 ml 1550 ml IV Total 0 ml Output Urine Total 700 ml # Voids 2 1 2 # Bowel Movements 1 3 0 (Phil Warren MD R1) Result Diagram: 07/20/16 0818 07/21/16 0737 Objective Remarks GENERAL: in NAD, no resp distress, nontoxic. Talks in complete sentences. HEENT: NCAt, EOMI, no scleral icterus, no conjunctival injection. MMM. No nasal flaring. NECK: Supple, no meningeal signs. CV: RRR, S1 S2. No murmurs. CHEST/PULM: BS equal b/l. + end exp wheeze throughout. No crackles. ABD/GI: +BS in all quadrants, soft, protuberant, moderately tender in LLQ. Obese. No guarding or rebound tenderness. EXT: 1+ DP pulses; no calf tenderness. No edema. Left AV fistula. NEURO: Awake, alert. Normal muscle tone. Grossly nonfocal. SKIN: No rashes, no jaundice. PSYCH: Mood and affect are appropriate. Speech fluent. Does not appear to respond to internal stimuli. (Phil Warren MD R1) A/P Assessment and Plan 51-year-old male with CVID, ESRD on HD T/ presented meeting sepsis criteria due to community-acquired pneumonia, patient has a h/o MRSA pneumonia . Discharge Planning Stable for discharge today. Patient has been evaluated by an infectious disease specialist, recommending completing course of PO Levaquin until 07/26. ( Phil Warren MD R1) Attending Attestation Patient seen, examined, and discussed with resident team. I agree with assessment and management as documented and discussed with me. Patient seen in dialysis. He reports his cough is worse, but dialysis nurse reports no cough for the two hours that he has been there. Repeat CXR, but anticipate discharge if stable. Greater than 30 minutes spent by me personally counselling and coordinating care at discharge. (Gaye Manriquez MD) Problem List: (1) Pneumonia Status: Acute Plan: ID consulted, appreciate recommendations Vancomycin now discontinued; to be arranged around dialysis. Continue Levaquin 250 mg by mouth daily until 07/26 Blood cultures from 07/16 no growth after 5 days Legionella urine presumptive negative pneumococcal urine presumptive negative sputum culture 07/17 heavy growth of normal respiratory rickie acapella, incentive spirometer Nebulizers PRN for wheezing PFTs ordered for one week after discharge (2) ESRD (end stage renal disease) Status: Chronic Plan: Nephrology consult, managing HD Continue normal schedule of Dialysis Monday, , Monday (3) LLQ abdominal pain Status: Resolved Plan: Most likely due to constipation Abdominal exams have been benign, soft, no guarding, no rebound tenderness Patient having BMs now Continue pericolace 2 tabs po bid Fleets enema prn Abdomen x-ray showing no acute disease, no free air (4) Pulmonary hypertension Status: Chronic Plan: Continue home medication sildenafil 40 mg by mouth twice a day (5) CAD (coronary artery disease) Status: Chronic Plan: Asymptomatic. EKG in sinus rhythm, with first-degree AV block Continue home medications. (6) Hypertension Status: Chronic Plan: Continue home medications. Monitor BP. (7) Anemia in chronic kidney disease (CKD) Status: Chronic Plan: Hemoglobin at baseline, continue to monitor No active bleeding. (8) Thrombocytopenia Status: Chronic Plan: Platelet count at baseline. No obvious active bleeding. No further intervention at this time. Continue to monitor (9) A-fib Status: Chronic Plan: On Amiodarone. If worsening SOB, consider d/c of amiodarone as it may contribute to decreased lung function. Pt is currently not on anticoagulation, except for heparin SQ Q12 Currently in sinus rhythm. Fluids not indicated, per by mouth Monitor electrolytes, continue dialysis Regular diet at patient request GI prophylaxis with Protonix 20 mg by mouth twice a day DVT prophylaxis with heparin 5000 units subcutaneous every 12 hours (Phil Warren MD R1) Problem Qualifiers (1) Hypertension: Qualified Code: I10 - Essential hypertension Phil Warren MD R1 July 21, 2016 12:25 Gaye Manriquez MD July 22, 2016 10:46
[2016-07-21] MEDS ORDERED: LEVO250T7 PO (14:06)
--- NOTE | 2016-07-21 15:12 | RADRPT ---
EXAM DATE/TIME: 07/21/2016 14:40 [facility] COMPARISON: CHEST SINGLE AP, June 25, 2016, 21:42. INDICATIONS : Shortness of breath and cough. MEDICAL HISTORY : Chronic obstructive pulmonary disease. Congestive heart failure.Hypertension. Chronic renal failure. SURGICAL HISTORY : Pericardial window. Vas cath right chest. ENCOUNTER: Subsequent ACUITY: 1 week PAIN SCORE: 2/10 LOCATION: Bilateral chest FINDINGS: Underinflated AP view of the chest demonstrates cardiac silhouette size at the upper limits for piedad l. Right IJ dialysis catheter remains present. Lungs are underinflated with atelectasis at the lung b ases. No effusion or pneumothorax is seen. No acute osseous abnormality is identified. CONCLUSION: Underinflated examination with atelectasis at the bases. No acute cardiopulmonary abnormality is iden tified. John Horn MD on July 21, 2016 at 15:09 Board Certified Radiologist. This report was verified electronically.
--- NOTE | 2016-07-21 15:30 | HHI.DS ---
Discharge Summary Admission Date July 16, 2016 at 18:36 Discharge Date: July 21, 2016 Admitting Diagnosis CAP (1) Pneumonia Diagnosis: Principal Plan: ID consulted, appreciate recommendations Vancomycin now discontinued; to be arranged around dialysis. Continue Levaquin 250 mg by mouth daily until 07/26 Blood cultures from 07/16 no growth after 5 days Legionella urine presumptive negative pneumococcal urine presumptive negative sputum culture 07/17 heavy growth of normal respiratory rickie acapella, incentive spirometer Nebulizers PRN for wheezing PFTs ordered for one week after discharge (2) ESRD (end stage renal disease) Diagnosis: Secondary Plan: Nephrology consult, managing HD Continue normal schedule of Dialysis Monday, , Monday (3) LLQ abdominal pain Diagnosis: Secondary Plan: Most likely due to constipation Abdominal exams have been benign, soft, no guarding, no rebound tenderness Patient having BMs now Continue pericolace 2 tabs po bid Fleets enema prn Abdomen x-ray showing no acute disease, no free air (4) Pulmonary hypertension Diagnosis: Secondary Plan: Continue home medication sildenafil 40 mg by mouth twice a day (5) CAD (coronary artery disease) Diagnosis: Secondary Plan: Asymptomatic. EKG in sinus rhythm, with first-degree AV block Continue home medications. (6) Hypertension Diagnosis: Secondary Plan: Continue home medications. Monitor BP. (7) Anemia in chronic kidney disease (CKD) Diagnosis: Secondary Plan: Hemoglobin at baseline, continue to monitor No active bleeding. (8) Thrombocytopenia Diagnosis: Secondary Plan: Platelet count at baseline. No obvious active bleeding. No further intervention at this time. Continue to monitor (9) A-fib Diagnosis: Secondary Plan: On Amiodarone. If worsening SOB, consider d/c of amiodarone as it may contribute to decreased lung function. Pt is currently not on anticoagulation, except for heparin SQ Q12 Currently in sinus rhythm. Fluids not indicated, per by mouth Monitor electrolytes, continue dialysis Regular diet at patient request GI prophylaxis with Protonix 20 mg by mouth twice a day DVT prophylaxis with heparin 5000 units subcutaneous every 12 hours Consultants Infectious disease, nephrology Brief History 51-year-old male with history of end-stage renal disease, common variable immunodeficiency disorder and multiple hospitalizations (mostly at [facility]) for MRSA pneumonia presents with a hospital-acquired pneumonia after being discharged earlier this month. At that time infectious disease was consulted for evaluation and management of severe sepsis. He was treated with vancomycin during hemodialysis and was discharged with care coordinated by infectious disease for hemodialysis as an outpatient during hemodialysis. This was performed per the patient. He presented to the emergency room earlier today for a 1 day history of tremors , fever, chills, cough productive of sputum. He states these are the symptoms he gets when he feels an infection coming on. He states in 2014 he was admitted 9 times for the same MRSA pneumonia. He was hospitalized at [facility] for one month in 2016. He previously followed a flying squad worker, Dr.Rene Do for his common immune deficiency syndrome. However , he has not seen a physician since early 2015. Occasionally he will get immunoglobulin IgG therapy which provided him benefit. CBC/BMP: 07/20/16 0818 07/21/16 0737 Significant Findings Laboratory Tests Test 07/19/16 07/20/16 07/21/16 07:10 08:18 07:37 Red Blood Count 3.37 MIL/MM3 3.34 MIL/MM3 (4.50-5.90) (4.50-5.90) Hemoglobin 9.8 GM/DL 9.7 GM/DL (13.0-17.0) (13.0-17.0) Hematocrit 29.3 % 29.1 % (39.0-51.0) (39.0-51.0) Platelet Count 70 TH/MM3 72 TH/MM3 (150-450) (150-450) Neutrophils (%) (Auto) 71.8 % (16.0-70.0) Monocytes (%) (Auto) 14.4 % 11.5 % (0.0-8.0) (0.0-8.0) Lymphocytes # (Auto) 0.4 TH/MM3 0.6 TH/MM3 (1.0-4.8) (1.0-4.8) Platelet Estimate LOW (NORMAL) LOW (NORMAL) Tear Drop Cells 1+ (NORMAL) 1+ (NORMAL) Ovalocytes 1+ (NORMAL) 1+ (NORMAL) Blood Urea Nitrogen 49 MG/DL (7-18) 38 MG/DL (7-18) 51 MG/DL (7-18) Creatinine 9.77 MG/DL 7.90 MG/DL 9.76 MG/DL (0.60-1.30) (0.60-1.30) (0.60-1.30) Estimat Glomerular Filtration 6 ML/MIN (>89) 7 ML/MIN (>89) 6 ML/MIN (>89) Rate Random Glucose 131 MG/DL 140 MG/DL 123 MG/DL (74-106) (74-106) (74-106) Phosphorus Level 6.3 MG/DL 5.5 MG/DL (2.5-4.9) (2.5-4.9) Eosinophils (%) (Auto) 5.7 % (0.0-4.0) Carbon Dioxide Level 32.2 MEQ/L (21.0-32.0) Calcium Level 8.1 MG/DL 8.3 MG/DL (8.5-10.1) (8.5-10.1) Imaging 07/21/2016 chest x-ray showing underinflated examination with atelectasis at the base. No acute cardiopulmonary abnormality identified. 07/20/2016 abdomen x-ray, no acute disease. 07/16/2016 chest x-ray showing patchy right midlung consolidation. PE at Discharge GENERAL: in NAD, no resp distress, nontoxic. Talks in complete sentences. HEENT: NCAt, EOMI, no scleral icterus, no conjunctival injection. MMM. No nasal flaring. NECK: Supple, no meningeal signs. CV: RRR, S1 S2. No murmurs. CHEST/PULM: BS equal b/l. + end exp wheeze throughout. No crackles. ABD/GI: +BS in all quadrants, soft, protuberant, moderately tender in LLQ. Obese. No guarding or rebound tenderness. EXT: 1+ DP pulses; no calf tenderness. No edema. Left AV fistula. NEURO: Awake, alert. Normal muscle tone. Grossly nonfocal. SKIN: No rashes, no jaundice. PSYCH: Mood and affect are appropriate. Speech fluent. Does not appear to respond to internal stimuli. Hospital Course Patient was started on vancomycin 1 g given following dialysis. Infectious disease was consulted given the patient's comorbidities and his diagnosis of common variable immunodeficiency. Blood cultures remained negative after 5 days. Patient was negative for legionella and pneumococcal antigens. Sputum culture was negative. Vancomycin was discontinued per infectious disease. Infectious disease service the patient on by mouth Levaquin, course to be completed until 07/26/2016. The patient did complain of some left lower quadrant abdominal pain that was likely due to constipation. He was given a bowel regimen and started having regular bowel movements. Abdominal x-ray flat and upright were benign, no free air. His chest x-ray on 07/21/2016 is significantly improved from his initial chest x-ray showing right midlung consolidation. Immunoglobulins were checked per infectious disease. IgG is 678 within normal limits, IgA is 183 within normal limits, IgM is 129 within normal limits, IgE is 4.6 within normal limits. Patient received dialysis while hospitalized per nephrology. Patient reported a history of hepatitis B. A hepatitis panel was checked, hepatitis B surface antigen is negative, Hep Bs antibody quant is 125 indicating immunity, hep B core IgM antibody negative, hep B DNA quantitative is less than 1.3, hep B DNA is less than 20, hep C antibody is negative, hepatitis negative. HIV 1 and 2 antibodies are negative. Hep B core total antibody is still pending at time of this note. The patient was instructed to obtain PFTs about one week after being discharged once his respiratory status is back to baseline, to assess if there is any restrictive lung disease as he has been on amiodarone for a number of years. Pt Condition on Discharge: Stable Discharge Disposition: Discharge Home Discharge Instructions DIET: Follow Instructions for: Heart Healthy Diet, Renal Failure Diet Activities you can perform: Weight Bearing as Felicia Follow up Referrals: PCP Follow-up - 3-5 Days New Orders: BASIC METABOLIC PROF - 3-5 Days PFT PRE/POST BRONCH - 1 Week New Medications: Levofloxacin (Levofloxacin) 250 Mg Tablet 250 MG PO DAILY Infection #5 Ref 0 TAB Acetaminophen-Codeine Liq (Tylenol-Codeine Elixir) 120-12 Mg/5 Ml Soln 5 ML PO Q4H PRN COUGH #30 ML Benzonatate (Tessalon Perles) 100 Mg Cap 200 MG PO Q8H PRN COUGH #21 CAP Magnesium Hydroxide Liq (Milk of Magnesia Liq) 400 Mg/5 Ml Susp 30 ML PO Q12H PRN CONSTIPATION #30 Continued Medications: Alprazolam (Xanax) 0.25 Mg Tab 0.25 MG PO DIRECTED PRN ANXIETY Ref 0 TAB Amiodarone (Amiodarone) 200 Mg Tab 200 MG PO DAILY please followup with cardiology to adress need for this medication heart Days 30 TAB Atorvastatin (Atorvastatin) 20 Mg Tab 20 MG PO HS Cholesterol Management #30 Ref 0 TAB Calcium Acetate (Phosphate Bin (Calcium Acetate) 667 Mg Cap Metoprolol Tartrate (Metoprolol Tartrate) 25 Mg Tab 50 MG PO Q12HR heart Days 30 TAB Ondansetron Odt (Zofran Odt) 4 Mg Tab 4 MG SL Q6HR PRN Nausea/Vomiting Ref 0 TAB Oxycodone-Acetaminophen (Oxycodone-Acetaminophen) 10-325 mg Tab 1 TAB PO Q4H PRN PAIN #18 Ref 0 TAB Pantoprazole (Protonix) 20 Mg Tab 20 MG PO BID Reflux Ref 0 TAB Promethazine (Phenergan) 25 Mg Tab 25 MG PO Q6H PRN Nausea/Vomiting Ref 0 TAB Sildenafil (Sildenafil) 20 Mg Tab 40 MG PO BID Pulm. arterial hypertension #90 Ref 0 TAB Phil Warren MD R1 July 21, 2016 15:30
[2016-07-21 16:00] VITALS: BP 122/69; PULSE 93; RESP 12; TEMP 98.7; O2SAT 98
--- NOTE | 2016-07-21 17:47 | HHI.NPPN ---
Subjective History of Present Illness 51-year-old male with past medical history of hypertension, ischemic heart disease, atrial fibrillation, hyperlipidemia, gastroesophageal reflux disease (GERD), end-stage renal disease on hemodialysis three times per week who came to the hospital because of cough and sputum. I was called to see the patient for management of hemodialysis. He has been going to the [facility] in [place] and following with Dr. Ronan Khalil. He has been on hemodialysis Monday, and Monday. Additional Remarks Patient is alert, was seen when getting ready to get discharged. Review of Systems General Constitutional: Fatigue Respiratory Lungs: SOB, Cough, Wheeze Cardiovascular Cardiac: Edema, WYLIE Objective Data Data 07/20/16 07/21/16 19:00 07:00 Intake Total 960 ml 1550 ml Output Total 700 ml Balance 960 ml 850 ml Intake Oral 960 ml 1550 ml IV Total 0 ml Output Urine Total 700 ml # Voids 1 2 # Bowel Movements 3 0 Vital Signs Date Time Temp Pulse Resp B/P Pulse Ox O2 Delivery O2 Flow Rate FiO2 07/21/16 16:00 98.7 93 12 122/69 98 07/21/16 08:00 98.1 76 12 131/74 92 07/21/16 04:30 98.3 72 18 134/79 95 07/21/16 00:39 98.5 79 18 140/77 96 07/20/16 20:00 98.3 70 16 123/59 95 -: 07/20/16 0818 07/21/16 0737 Physical Exam General Appearance: Well Nourished, No Acute Distress, Comfortable Eyes Eye Exam: Pupils Equal Throat Throat Exam: Oral Mucosa [place] & Moist Neck Neck Exam: Neck Supple Pulmonary Resp Exam: Crackles, Rhonchi, Sputum, Decreased Bases, Diminished Breath Sounds Cardiology CV Exam: Regular, Normal Sinus Rhythm Gastrointestinal/Abdomen GI Exam: Soft, Non-Tender, Bowel Sounds Present, Non-Distended Extremeties Extremities Exam: Trace Edema Neurologic Neuro Exam: Alert, Awake, Oriented Psychiatric Psych Exam: Appropriate Responses Assessment/Plan Assessment Summary: Hypertension, End Stage Renal Disease Problem List: (1) Anemia (2) CAD (coronary artery disease) (3) Anemia in chronic kidney disease (CKD) (4) Hypertension (5) Thrombocytopenia (6) ESRD (end stage renal disease) (7) Pneumonia Plan HD done today, tolerated well. No vomiting today. BP is stable. Patient for D/C, to continue HD as out patient. He will follow with Dr. Ángela Khalil. Problem Qualifiers (1) Hypertension: Qualified Code: I10 - Essential hypertension Yasmine Gross MD July 21, 2016 17:47
[2016-07-23] MEDS ORDERED: LEVOFLOXACIN 500 MG TAB PO SCH (09:00)
--- NOTE | 2016-07-26 09:07 | RSPPFT ---
DATE OF PROCEDURE: 07/21/16 COMMENTS: VOLUMES DYNAMIC: FVC and FEV1 moderately reduced. FLOWS: FEV1% normal; FEF 25-75 severely reduced. IMPRESSION: This appears to be a moderately severe obstructive ventilatory defect and there is no improvement post-bronchodilator. Full lung volumes would be necessary to exclude a co-existent restrictive defect.
== END 2016-07-21 16:47 | disposition home or self-care (01) | DRG 871 ==
LOC: NEDDLT 18:25 → N04A 18:36
PROVIDERS: ADMIT Family Medicine; ATTEND Family Medicine
PROC: 5A1D60Z (ICD-10-PCS; principal; 2016-07-18)
DX: A41.9 Sepsis, unspecified organism (principal); J18.9 Pneumonia, unspecified organism; I13.2 Hypertensive heart and chronic kidney disease with heart failure and with stage 5 chronic kidney disease, or end stage renal disease; D83.9 Common variable immunodeficiency, unspecified; D69.6 Thrombocytopenia, unspecified; N18.6 End stage renal disease; I27.2 Other secondary pulmonary hypertension; I48.2 Chronic atrial fibrillation; F41.9 Anxiety disorder, unspecified; K21.9 Gastro-esophageal reflux disease without esophagitis; E78.5 Hyperlipidemia, unspecified; G89.29 Other chronic pain; M54.5 Low back pain; I25.10 Atherosclerotic heart disease of native coronary artery without angina pectoris; K59.00 Constipation, unspecified; D63.1 Anemia in chronic kidney disease; Z87.01 Personal history of pneumonia (recurrent); I50.9 Heart failure, unspecified; Z99.2 Dependence on renal dialysis
CPT/HCPCS: 71010; 71020; 74020; 80048; 80053; 80074; 80202; 82784; 82785; 83735; 84100; 85025; 85379; 85384; 86317; 86703; 86704; 87040; 87070; 87205; 87449; 87517; 87641; 90935; 93005; 94060; 94150; 94667; 94668; 96365; 96374; 96375; 99281; J1580; J1644; J2270; J2405; J3370; J7040; J7050; Q0169; Q4081